=== PATIENT | female | born 1940 | race Caucasian/White ===

== ENCOUNTER 2020-06-22 11:42 | Inpatient (IN) | payer MEDICARE, SELFPAY ==
[2020-06-22] VITALS (7 sets, daily range): BP systolic 123–160; BP diastolic 48–100; PULSE 20–89; RESP 16–83; TEMP 36.7–37; O2SAT 93–98; BMI 26.2
--- NOTE | 2020-06-22 13:27 | XR_ITS ---
EXAMINATION: CHEST, RIGHT HIP AND RIGHT KNEE. CLINICAL INFORMATION: Fall. Pain. COMPARISON: None TECHNIQUE: Chest one view. Right knee 2 views. Right hip 2 views with an AP pelvis view. FINDINGS: Chest: The lungs are well-expanded with prominent bilateral parahilar markings in both lungs. The heart size is normal. No consolidation pleural effusion seen. There is mild deformity left posterior seventh rib question new versus old fracture. Right knee: There is no visible acute fracture, dislocation seen. There is mild reduction in the medial and patellofemoral compartment joint space without joint effusion. There is a small superior anterior patellar enthesophyte. Suspect a small loose body along the medial compartment. Right hip and AP pelvis: AP pelvis: The left hip joint space is normal. There is mild foreshortening of the right hip suggestive subcapital femoral neck fracture. Rest the pelvis is unremarkable. There is sclerotic density right femoral head likely a small to moderate-sized bone island. There is soft tissue calcification along the ischial fossa. No soft tissue swelling or mass seen. SI joints are symmetrical. XR/XR chest 1V IMPRESSION: Subcapital right femoral neck with mild angulation. No dislocation or subluxation. The chest is normal. No acute rib fractures seen No acute fracture or dislocation right knee. There is mild degenerative changes of right knee with a small loose body within the medial compartment. There is minimal suprapatellar joint effusion suspected.
--- NOTE | 2020-06-22 13:28 | ECG_ITS ---
Test Reason : PAIN IN RIGHT SIDE Blood Pressure : / mmHG Vent. Rate : 072 BPM Atrial Rate : 072 BPM P-R Int : 152 ms QRS Dur : 076 ms QT Int : 398 ms P-R-T Axes : 026 002 022 degrees QTc Int : 435 ms Normal sinus rhythm Normal ECG When compared with ECG of 31-JAN-2020 17:53, No significant change was found Referred By: Anderson Jenkins Electronically Signed By:Morris Winkler
--- NOTE | 2020-06-22 13:28 | CT_ITS ---
EXAMINATION: CT HEAD WITHOUT CONTRAST CLINICAL INFORMATION: Fall, headache. On Coumadin COMPARISON: CT brain 02/22/2019 TECHNIQUE: Contiguous axial imaging was performed from the skull base to vertex without intravenous administration of contrast. This CT examination was performed using dose optimization techniques as appropriate, variously including the following: *Automated exposure control *Adjustment of mA and/or kV according to patient size (this includes techniques or standardized protocols for targeted exams where dose is matched to indication/reason for exam; i.e. extremities or head) *Use of iterative reconstruction technique DLP: 912 mGy-cm FINDINGS: There is no evidence of acute intracranial hemorrhage or territorial infarction. No abnormal mass effect or midline shift is seen. Faustin to white matter differentiation is well preserved. No extra-axial fluid collections are identified. The lateral ventricles are significantly enlarged but symmetrical. The third and fourth ventricles are mildly prominent as well. There is mild prominence of cortical sulci. There is extensive periventricular hypodensity in both cerebral hemispheres similar to the previous study from 2019. Bone windows reveal no calvarial abnormality. Bilateral paranasal sinuses and mastoid air cells are well aerated. There is no scalp soft tissue abnormality seen. CT/CT head/brain wo con IMPRESSION: No acute intracranial process seen. Extensive chronic small vessel ischemic changes in both cerebral hemispheres. Significant dilation of lateral ventricles similar to previous study from cerebral volume loss.
--- NOTE | 2020-06-22 13:31 | XR_ITS ---
EXAMINATION: CHEST, RIGHT HIP AND RIGHT KNEE. CLINICAL INFORMATION: Fall. Pain. COMPARISON: None TECHNIQUE: Chest one view. Right knee 2 views. Right hip 2 views with an AP pelvis view. FINDINGS: Chest: The lungs are well-expanded with prominent bilateral parahilar markings in both lungs. The heart size is normal. No consolidation pleural effusion seen. There is mild deformity left posterior seventh rib question new versus old fracture. Right knee: There is no visible acute fracture, dislocation seen. There is mild reduction in the medial and patellofemoral compartment joint space without joint effusion. There is a small superior anterior patellar enthesophyte. Suspect a small loose body along the medial compartment. Right hip and AP pelvis: AP pelvis: The left hip joint space is normal. There is mild foreshortening of the right hip suggestive subcapital femoral neck fracture. Rest the pelvis is unremarkable. There is sclerotic density right femoral head likely a small to moderate-sized bone island. There is soft tissue calcification along the ischial fossa. No soft tissue swelling or mass seen. SI joints are symmetrical. XR/XR knee RT 2V IMPRESSION: Subcapital right femoral neck with mild angulation. No dislocation or subluxation. The chest is normal. No acute rib fractures seen No acute fracture or dislocation right knee. There is mild degenerative changes of right knee with a small loose body within the medial compartment. There is minimal suprapatellar joint effusion suspected.
--- NOTE | 2020-06-22 13:31 | XR_ITS ---
EXAMINATION: CHEST, RIGHT HIP AND RIGHT KNEE. CLINICAL INFORMATION: Fall. Pain. COMPARISON: None TECHNIQUE: Chest one view. Right knee 2 views. Right hip 2 views with an AP pelvis view. FINDINGS: Chest: The lungs are well-expanded with prominent bilateral parahilar markings in both lungs. The heart size is normal. No consolidation pleural effusion seen. There is mild deformity left posterior seventh rib question new versus old fracture. Right knee: There is no visible acute fracture, dislocation seen. There is mild reduction in the medial and patellofemoral compartment joint space without joint effusion. There is a small superior anterior patellar enthesophyte. Suspect a small loose body along the medial compartment. Right hip and AP pelvis: AP pelvis: The left hip joint space is normal. There is mild foreshortening of the right hip suggestive subcapital femoral neck fracture. Rest the pelvis is unremarkable. There is sclerotic density right femoral head likely a small to moderate-sized bone island. There is soft tissue calcification along the ischial fossa. No soft tissue swelling or mass seen. SI joints are symmetrical. XR/XR hip RT w PEL1V IMPRESSION: Subcapital right femoral neck with mild angulation. No dislocation or subluxation. The chest is normal. No acute rib fractures seen No acute fracture or dislocation right knee. There is mild degenerative changes of right knee with a small loose body within the medial compartment. There is minimal suprapatellar joint effusion suspected.
[2020-06-22] MEDS: 0.9 % Sodium Chloride 500 ML IV (13:45)
--- NOTE | 2020-06-22 15:20 | ED.FALL ---
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 She denies any LOC. No chest pain or shortness of breath. She does report she has a slight headache from hitting the head on the ground. No neck pain. Onset (ago): day(s) Related Data Home Medications Medication Instructions Recorded Confirmed acetaminophen 650 mg 650 mg PO Q8H 05/23/20 tablet,extended release albuterol sulfate 90 mcg/actuation 0 mcg INHALATION 05/23/20 aerosol inhaler albuterol sulfate 90 mcg/actuation 2 puff INHALATION QID g 05/23/20 aerosol inhaler fluticasone 500 mcg-salmeterol 50 1 inh INHALATION BID 05/23/20 mcg/dose blistr powdr for inhalation metoprolol tartrate 25 mg tablet 25 mg PO BID 05/23/20 tiotropium bromide 18 mcg capsule 1 cap INHALATION DAILY 05/23/20 with inhalation device tramadol 50 mg tablet 50 mg PO TID PRN 05/23/20 warfarin 5 mg tablet 5 mg PO DAILY 05/23/20 Previous Rx's Medication Instructions Recorded tramadol 50 mg tablet 50 mg PO TID PRN 30 Days #90 tab 05/03/20 meclizine 25 mg tablet 25 mg PO DAILY #30 cap 05/22/20 baclofen 10 mg tablet 10 mg PO BID 15 Days #30 tab 05/23/20 Allergies Allergy/AdvReac Type Severity Reaction Status Date / Time albuterol [Ventolin HFA] Allergy Unknown palpitation Verified 01/07/20 00:00 s No Known Allergies Allergy Unverified 03/02/20 15:39 Review of Systems Review of Systems: Constitutional: No Weight loss, No Fever, No Chills, No Night Sweats, No Fatigue, No Malaise ENT/Mouth: No Hearing loss, No Ear Pain, No Nasal Congestion, No Sinus Pain, No Hoarseness, No sore throat, No Rhinorrhea, No Swallowing Difficulty Eyes: No Eye Pain, No Swelling, No Redness, No Foreign Body, No Discharge, No Vision Changes Cardiovascular: No Chest Pain, No SOB, No Dyspnea on Exertion, No Orthopnea, No Edema, No Palpitations Respiratory: No Cough, No Sputum, No Wheezing, No Smoke Exposure, No Dyspnea Gastrointestinal: No Nausea, No Vomiting, No Diarrhea, No Constipation, No abdominal Pain, No Hematochezia, No Melena Genitourinary: no irregular bleeding, No Dysuria, No Urinary Frequency, No Hematuria, No Urinary Incontinence, No Urgency, No Flank Pain Musculoskeletal: No joint pain, No Myalgias, No Joint Swelling- positive right hip pain Skin: No Skin Lesions, No rash Neuro: No Weakness, No Numbness, No Paresthesias, No Loss of Consciousness, No Dizziness, No Headache Psych: No Social Issues Heme/Lymph: No Bruising, No Bleeding,No Lymphadenopathy Endocrine: No Polyuria, No Polydipsia, No Temperature Intolerance , Yes all other systems are reviewed and are negative [facility] Past Medical History Medical History (Updated 06/22/20 @ 18:17 by Anderson Jenkins NP) Anxiety BPV (benign positional vertigo) Compression fracture of L1 lumbar vertebra COPD (chronic obstructive pulmonary disease) Diverticular disease Eye exam, routine GERD (gastroesophageal reflux disease) History of lung cancer History of pulmonary embolism Hypercholesterolemia Hypertension Knee osteoarthritis Low vitamin D level Ophthalmologic abnormality Surgical History (Updated 05/16/20 @ 20:58 by Rasheed Gilliam MD) History of ankle surgery History of cataract surgery Social History Social History Alcohol intake: never Smoked in Last 30 Days: No Use of substances other than those prescribed or required for medical reasons: No Advance Directives: No Advance Directives Information Provided: Yes Physical Exam Vital Signs: Vital Signs: Last Vital Signs Temp 98.2 F 06/22/20 15:38 Pulse 83 06/22/20 15:38 Resp 18 06/22/20 15:38 BP 141/48 H 06/22/20 15:38 Pulse Ox 96 06/22/20 15:38 Body Mass Index 26.2 Reviewed Const: General: cooperative and healthy appearing; No acute distress or intoxicated appearing Nutritional Appearance: average body habitus Orientation/consciousness: patient oriented x3 HENMT: Head: Yes normal to inspection Ears: hearing grossly normal bilaterally Eyes: General: appearance normal, both eyes and all related structures Visual Segura: normal visual segura by confrontation Neck: Neck: Yes normal visual inspection, No positive Brudzinski's sign, No positive Kernig's sign and No tender Thyroid: Thyroid normal Chest: Chest palpation & inspection: normal inspection of the chest Resp: Effort & Inspection: normal respiratory effort Auscultation: clear to auscultation bilaterally Cardio: Jugular venous distension: no JVD Rhythm: regular rhythm Heart sounds: S1 normal heart sound present and S2 normal heart sound present GI: Inspection: Yes normal to inspection Percussion: Yes normal to percussion Auscultation: normal bowel sounds : General: Yes no CVA tenderness Back/Spine/Pelvis: Back: no CVA tenderness Skin: General skin exam: no rashes or lesions noted Neuro: General: patient oriented x3 Extrem: Other: Laying supine with knees flexed at the knee joint. Able to extend but has significant pain in the right hip. Neurovascularly intact. Right lower extremity not rotated but is very slightly shortened compared to the left. General: Yes normal to inspection Course Course Course Narrative: In review 80-year-old female with significant history as noted above presenting with fall yesterday on Coumadin did hit her head there was no LOC. Denies any prodromal symptoms to me. Labs show subtherapeutic INR otherwise stable. Pain well managed with 1 dose of morphine. Case discussed with orthopedics as well as hospitalist team for further management. Daughter Margaret Brice [phone]- spoke to her she has a healthcare proxy would like to be contacted with any questions. Consultations Consultation #1: Discussed with radiology Dr. Harvey ; regarding the read on the hip x-ray in the body of the report it does say right femoral neck fracture in the impression this is not specified. Consultation #2: Orthopedic Dr. Rivers; will consult question jing arthroplasty tomorrow a.m.. Consultation #3: Case discussed with hospitalist for admission. MDM - Fall Differential Diagnosis Differential diagnosis: Likely syncope, fracture and concussion without loss of consciousness Medical Records Attestation: I reviewed the patient's medical records. Lab Data Attestation: I reviewed the patient's lab results. Result diagrams: 06/22/20 15:14 06/22/20 15:14 Labs: Lab Results 06/22/20 06/22/20 06/22/20 Range/Units 15:14 15:14 15:14 WBC 12.2 H (4.8-10.8) X10*3/uL RBC 4.00 L (4.20-5.50) X10*6/uL Hgb 11.9 L (12.0-16.0) g/dl Hct 36.7 L (37-47) % MCV 91.8 (80-98) fL MCH 29.8 (27.0-33.0) pg MCHC 32.4 (31.0-35.0) g/dl RDW 12.9 (11.0-16.0) % Plt Count 221 (160-400) X10*3/uL MPV 10.2 (9.4-12.3) fL Immature Gran % (Auto) 0.3 (0.0-0.4) % Neut % (Auto) 68.6 (45-73) % Lymph % (Auto) 22.2 (20-40) % Osborne % (Auto) 7.9 (2-11) % Eos % (Auto) 0.7 (0-4) % Baso % (Auto) 0.3 (0-2) % Lymph # (Auto) 2.7 (1.2-4.9) X10*3/uL Osborne # (Auto) 1.0 (0.1-1.2) X10*3/uL Eos # (Auto) 0.1 (0.0-0.4) X10*3/uL Baso # (Auto) 0.0 (0.0-0.2) X10*3/uL Abs Immat Gran (auto) 0.04 H (0.00-0.03) X10*3/uL Absolute Neuts (auto) 8.4 H (2.0-8.3) X10*3/uL Absolute Nucleated RBC 0.000 (0.0-0.012) X10*3/uL Nucleated RBC % (auto) 0.0 (0.0-0.2) /100WBC PT (10.8-13.0) SEC INR (0.9-1.1) APTT (24.1-38.0) SEC Sodium 137 (135-145) mmol/L Potassium 4.0 (3.3-5.1) mmol/l Chloride 107 (96-108) mmol/L Carbon Dioxide 23 (22-29) mmol/L Anion Gap 11 L (12-20) BUN 8 L (9-16) mg/dL Creatinine 0.75 (0.5-1.4) mg/dL Estim Creat Clear Calc 48.7 Estimated GFR > 60 Random Glucose 94 (60-115) mg/dL Calcium 8.2 L (8.4-10.2) mg/dL Total Bilirubin 0.6 (0.0-1.0) mg/dL AST 15 (5-31) U/L ALT 9 (0-31) U/L Alkaline Phosphatase 71 (39-117) U/L Troponin I High Sens < 3.5 (<3.5-17.0) ng/L Total Protein 7.3 (6.5-8.0) g/dL Albumin 3.9 (3.5-5.0) g/dL Urine Color Urine Appearance Urine pH (5.0-8.0) Ur Specific [place] (1.005-1.025) Urine Protein (NEG-TRACE) MG/DL Urine Glucose (UA) (NEG) MG/DL Urine Ketones (NEG) MG/DL Urine Blood (NEG) Urine Nitrite (NEG) Ur Leukocyte Esterase (NEG) Urine RBC (0) /HPF Urine WBC (0-4) /HPF Ur Squamous Epith Cells /LPF Ur Renal Epithelial Cell /LPF Urine Bacteria /LPF 06/22/20 06/22/20 Range/Units 15:14 15:36 WBC (4.8-10.8) X10*3/uL RBC (4.20-5.50) X10*6/uL Hgb (12.0-16.0) g/dl Hct (37-47) % MCV (80-98) fL MCH (27.0-33.0) pg MCHC (31.0-35.0) g/dl RDW (11.0-16.0) % Plt Count (160-400) X10*3/uL MPV (9.4-12.3) fL Immature Gran % (Auto) (0.0-0.4) % Neut % (Auto) (45-73) % Lymph % (Auto) (20-40) % Osborne % (Auto) (2-11) % Eos % (Auto) (0-4) % Baso % (Auto) (0-2) % Lymph # (Auto) (1.2-4.9) X10*3/uL Osborne # (Auto) (0.1-1.2) X10*3/uL Eos # (Auto) (0.0-0.4) X10*3/uL Baso # (Auto) (0.0-0.2) X10*3/uL Abs Immat Gran (auto) (0.00-0.03) X10*3/uL Absolute Neuts (auto) (2.0-8.3) X10*3/uL Absolute Nucleated RBC (0.0-0.012) X10*3/uL Nucleated RBC % (auto) (0.0-0.2) /100WBC PT 16.4 H (10.8-13.0) SEC INR 1.4 H (0.9-1.1) APTT 35.6 (24.1-38.0) SEC Sodium (135-145) mmol/L Potassium (3.3-5.1) mmol/l Chloride (96-108) mmol/L Carbon Dioxide (22-29) mmol/L Anion Gap (12-20) BUN (9-16) mg/dL Creatinine (0.5-1.4) mg/dL Estim Creat Clear Calc Estimated GFR Random Glucose (60-115) mg/dL Calcium (8.4-10.2) mg/dL Total Bilirubin (0.0-1.0) mg/dL AST (5-31) U/L ALT (0-31) U/L Alkaline Phosphatase (39-117) U/L Troponin I High Sens (<3.5-17.0) ng/L Total Protein (6.5-8.0) g/dL Albumin (3.5-5.0) g/dL Urine Color YELLOW Urine Appearance CLEAR Urine pH 7.5 (5.0-8.0) Ur Specific [place] 1.010 (1.005-1.025) Urine Protein NEG (NEG-TRACE) MG/DL Urine Glucose (UA) NEG (NEG) MG/DL Urine Ketones NEG (NEG) MG/DL Urine Blood 1+ H (NEG) Urine Nitrite NEG (NEG) Ur Leukocyte Esterase NEG (NEG) Urine RBC 1-4 (0) /HPF Urine WBC 1-4 (0-4) /HPF Ur Squamous Epith Cells NONE /LPF Ur Renal Epithelial Cell 1+ /LPF Urine Bacteria NONE /LPF Imaging Data CT scan - head: Radiologist's impression: [address] [address] [address] Scan Report Signed Patient: Marino Phillips#: [id number] : 1940cct:[id number] Age/Sex: 80 / FADM Date: 06/22/20 Loc: HO.ED Attending Dr: Ordering Physician: Anderson Jenkins NP Date of Service: 06/22/20 Procedure(s): CT head/brain wo con Accession Number(s): [id number] cc: Anderson Jenkins NP~ EXAMINATION: CT HEAD WITHOUT CONTRAST CLINICAL INFORMATION: Fall, headache. On Coumadin COMPARISON: CT brain 02/22/2019 TECHNIQUE: Contiguous axial imaging was performed from the skull base to vertex without intravenous administration of contrast. This CT examination was performed using dose optimization techniques as appropriate, variously including the following: *Automated exposure control *Adjustment of mA and/or kV according to patient size (this includes techniques or standardized protocols for targeted exams where dose is matched to indication/reason for exam; i.e. extremities or head) *Use of iterative reconstruction technique DLP: 912 mGy-cm FINDINGS: There is no evidence of acute intracranial hemorrhage or territorial infarction. No abnormal mass effect or midline shift is seen. Faustin to white matter differentiation is well preserved. No extra-axial fluid collections are identified. The lateral ventricles are significantly enlarged but symmetrical. The third and fourth ventricles are mildly prominent as well. There is mild prominence of cortical sulci. There is extensive periventricular hypodensity in both cerebral hemispheres similar to the previous study from 2019. Bone windows reveal no calvarial abnormality. Bilateral paranasal sinuses and mastoid air cells are well aerated. There is no scalp soft tissue abnormality seen. CT/CT head/brain wo con IMPRESSION: No acute intracranial process seen. Extensive chronic small vessel ischemic changes in both cerebral hemispheres. Significant dilation of lateral ventricles similar to previous study from cerebral volume loss. Dictated By:MINH HARVEY MD Signed By:<Electronically signed by MINH HARVEY MD in OV>06/22/20 1459 DD/ 1328 TD/TT: Neon Tube Bender: MOMO Chest x-ray, right hip with pelvis, right knee: Radiologist's impression: [address] [address] XRay Report Signed Patient: Marino Phillips#: [id number] : 1940cct:[id number] Age/Sex: 80 / FADM Date: 06/22/20 Loc: HO.ED Attending Dr: Ordering Physician: Anderson Jenkins NP Date of Service: 06/22/20 Procedure(s): XR chest 1V Accession Number(s): [id number] cc: Anderson Jenkins [employer]~ EXAMINATION: CHEST, RIGHT HIP AND RIGHT KNEE. CLINICAL INFORMATION: Fall. Pain. COMPARISON: None TECHNIQUE: Chest one view. Right knee 2 views. Right hip 2 views with an AP pelvis view. FINDINGS: Chest: The lungs are well-expanded with prominent bilateral parahilar markings in both lungs. The heart size is normal. No consolidation pleural effusion seen. There is mild deformity left posterior seventh rib question new versus old fracture. Right knee: There is no visible acute fracture, dislocation seen. There is mild reduction in the medial and patellofemoral compartment joint space without joint effusion. There is a small superior anterior patellar enthesophyte. Suspect a small loose body along the medial compartment. Right hip and AP pelvis: AP pelvis: The left hip joint space is normal. There is mild foreshortening of the right hip suggestive subcapital femoral neck fracture. Rest the pelvis is unremarkable. There is sclerotic density right femoral head likely a small to moderate-sized bone island. There is soft tissue calcification along the ischial fossa. No soft tissue swelling or mass seen. SI joints are symmetrical. XR/XR chest 1V IMPRESSION: Subcapital right femoral neck with mild angulation. No dislocation or subluxation. The chest is normal. No acute rib fractures seen No acute fracture or dislocation right knee. There is mild degenerative changes of right knee with a small loose body within the medial compartment. There is minimal suprapatellar joint effusion suspected. Dictated By:MINH HARVEY MD Signed By:<Electronically signed by MINH HARVEY MD in OV>06/22/20 1440 DD/ 1327 TD/TT: Neon Tube Bender: MOMO Discharge Plan Discharge Clinical Impression: Fall, Closed fracture of right hip Patient Disposition: Admitted As Inpatient Prescriptions: No Action tramadol 50 mg tablet 50 mg PO TID PRN (Reason: pain) 30 Days Qty: 90 RF: 1 meclizine 25 mg tablet 25 mg PO DAILY Qty: 30 RF: 2 baclofen 10 mg tablet 10 mg PO BID 15 Days Qty: 30 RF: 0
[2020-06-22 15:23] LABS: MANUAL DIFF FLAG NO
[2020-06-22 15:24] LABS: Basophils Percent Auto 0.3 % (0-2); Eosinophils Absolute Auto 0.1 X10*3/uL (0.0-0.4); Eosinophils Percent Auto 0.7 % (0-4); Hematocrit 36.7 % (37-47); Hemoglobin 11.9 g/dl (12.0-16.0); Imm Gran Abs Auto 0.04 X10*3/uL (0.00-0.03); Imm Gran Pct Auto 0.3 % (0.0-0.4); Lymphocytes Absolute Auto 2.7 X10*3/uL (1.2-4.9); Lymphocytes Percent Auto 22.2 % (20-40); Mean Corpuscular HGB Conc 32.4 g/dl (31.0-35.0); Mean Corpuscular Hemoglobin 29.8 pg (27.0-33.0); Mean Corpuscular Volume 91.8 fL (80-98); Mean Platelet Volume 10.2 fL (9.4-12.3); Monocytes Percent Auto 7.9 % (2-11); Neutrophils Absolute Auto 8.4 X10*3/uL (2.0-8.3); Neutrophils Percent Auto 68.6 % (45-73); Platelet Count 221 X10*3/uL (160-400); Red Cell Distribution Width 12.9 % (11.0-16.0); White Blood Count 12.2 X10*3/uL (4.8-10.8)
[2020-06-22 15:28] LABS: INTERNATIONAL NORM RATIO 1.4 (0.9-1.1); Prothrombin Time 16.4 SEC (10.8-13.0)
[2020-06-22 15:30] LABS: Partial Thromboplastin Time 35.6 SEC (24.1-38.0)
[2020-06-22] MEDS: Morphine Sulfate 4 MG/ML CARTRIDGE 2 MG IVPUSH (15:31)
[2020-06-22] MEDS: ondansetron HCL 4 MG/2 ML VIAL IVPUSH (15:31)
--- NOTE | 2020-06-22 15:34 | PC.NURSE ---
patient medicated per order
[2020-06-22 15:55] LABS: Alanine Aminotransferase 9 U/L (0-31); Albumin Level 3.9 g/dL (3.5-5.0); Alkaline Phosphatase 71 U/L (39-117); Anion Gap 11 (12-20); Aspartate Amino Transferase 15 U/L (5-31); Bilirubin Total 0.6 mg/dL (0.0-1.0); Blood Urea Nitrogen 8 mg/dL (9-16); Calcium 8.2 mg/dL (8.4-10.2); Carbon Dioxide 23 mmol/L (22-29); Chloride 107 mmol/L (96-108); Creatinine Clr Calc Pharmacy 48.7; Estimated Glomerular Filt Rate > 60; Glucose Random 94 mg/dL (60-115); Sodium 137 mmol/L (135-145); Total Protein 7.3 g/dL (6.5-8.0)
[2020-06-22 15:57] LABS: Troponin-I High Sensitivity < 3.5 ng/L (<3.5-17.0)
--- NOTE | 2020-06-22 16:00 | PC.NURSE ---
cath has been inserted per order
--- NOTE | 2020-06-22 16:08 | PC.NURSE ---
patient a&ox3, vss, pts had me speak with son on her cell phone, pt aware she has a broken rt hip as well as that she will be spending the night
[2020-06-22 16:16] LABS: Glucose Urine UA NEG (NEG); Leukocyte Esterase Urine NEG (NEG); Nitrite Urine NEG (NEG); PH 7.5 (5.0-8.0); Urine Blood 1+ (NEG); Urine Ketones NEG (NEG); Urine Protein NEG (NEG-TRACE)
[2020-06-22 16:39] LABS: Appearance Urine CLEAR; Color Urine YELLOW
[2020-06-22 17:02] LABS: Renal Epithelial Cells Urine 1+ /LPF
--- NOTE | 2020-06-22 18:09 | PC.NURSE ---
patient alert to baseline, vss, pt talking on phone with daughter as well as watching tv, covid swab performed, will continue to monitor.
[2020-06-22 18:29] LABS: COVID-19 Test Negative (Negative)
--- NOTE | 2020-06-22 18:48 | P.HPHOSP_ITS ---
History of Present Illness Date of Service: 06/22/20 <LUCY Apodaca - Last Filed: 06/22/20 19:02> Chief Complaint: Hip pain <LUCY Apodaca - Last Filed: 06/22/20 19:02> This is an 80-year-old female who was brought to the emergency department after a full with complaints of hip pain. Patient reports she was using her walker to ambulate down the hallway but her small dog got tangled up in her feet causing her to fall. She denied any dizziness chest pain or shortness of breath prior to her fall. She had sudden onset of right hip pain and was unable to get up. In the emergency department imaging revealed a right subcapital femoral neck fracture. Lab work revealed leukocytosis of 12.2 1.4. The remainder of her lab work was unremarkable. The remainder of her imaging was also unremarkable. The orthopedic surgeon recommended admission to medical service. <LUYC Apodaca - Last Filed: 06/22/20 19:02> Review of Systems Review of Systems: Yes all other systems are reviewed and are negative <LUCY Apodaca - Last Filed: 06/22/20 19:02> Constitutional: Constitutional: Denies chills and Denies fever(s) <LUCY Apodaca - Last Filed: 06/22/20 19:02> Cardiovascular: Cardiovascular: Denies chest pain <LUCY Apodaca - Last Filed: 06/22/20 19:02> Respiratory: Respiratory: Denies cough <LUCY Apodaca Last Filed: 06/22/20 19:02> Gastrointestinal: Gastrointestinal: Denies abdominal pain <LUCY Apodaca - Last Filed: 06/22/20 19:02> [facility] Medical History: Medical History (Updated 06/22/20 @ 18:53 by LUCY Apodaca) Anxiety BPV (benign positional vertigo) Compression fracture of L1 lumbar vertebra COPD (chronic obstructive pulmonary disease) Diverticular disease Eye exam, routine GERD (gastroesophageal reflux disease) History of lung cancer History of pulmonary embolism Hypercholesterolemia Hypertension Knee osteoarthritis Low vitamin D level Ophthalmologic abnormality <LUCY Apodaca Last Filed: 06/22/20 19:02> Functional capacity: uses cane/walker <LUCY Apodaca - Last Filed: 06/22/20 19:02> Family history: reviewed and not pertinent <LUCY Apodaca - Last Filed: 06/22/20 19:02> Surgical History: Surgical History History of ankle surgery History of cataract surgery <LUCY Apodaca - Last Filed: 06/22/20 19:02> Social History: Social History (Updated 06/22/20 @ 18:52 by LUCY Apodaca) Household Members: None Alcohol intake: never Smoking Status: Former smoker Smoked in Last 30 Days: No Use of substances other than those prescribed or required for medical reasons: No Advance Directives: No Advance Directives Information Provided: Yes <LUCY Apodaca - Last Filed: 06/22/20 19:02> Meds Allergies/Adverse reactions: Allergies Allergy/AdvReac Type Severity Reaction Status Date / Time albuterol [Ventolin HFA] Allergy Unknown palpitation Verified 01/07/20 00:00 s No Known Allergies Allergy Unverified 03/02/20 15:39 <LUCY Apodaca - Last Filed: 06/22/20 19:02> Home medications: Home Medications Medication Instructions Recorded Confirmed Type acetaminophen 650 mg 650 mg PO Q8H PRN 05/23/20 06/22/20 History tablet,extended release fluticasone 500 mcg-salmeterol 50 1 inh INHALATION BID 05/23/20 History mcg/dose blistr powdr for inhalation albuterol sulfate 2 puff INHALATION Q4H PRN 06/22/20 06/22/20 History meclizine 25 mg PO DAILY 06/22/20 06/22/20 History metoprolol tartrate 1 tab PO BID 06/22/20 06/22/20 History warfarin [Jantoven] 5 mg PO DAILY 06/22/20 06/22/20 History <LUCY Apodaca - Last Filed: 06/22/20 19:02> Physical Exam Vital Signs and Narrative: Vital Signs: Last Vital Signs Temp 98.4 F 06/22/20 18:09 Pulse 81 06/22/20 18:09 Resp 18 06/22/20 18:09 BP 123/60 06/22/20 18:09 Pulse Ox 93 06/22/20 18:09 Body Mass Index 26.2 <LUCY Apodaca - Last Filed: 06/22/20 19:02> Const: General: alert and awake <LUCY Apodaca - Last Filed: 06/22/20 19:02> Nutritional Appearance: well nourished <LUCY Apodaca - Last Filed: 06/22/20 19:02> HENMT: Head: Yes normocephalic and Yes atraumatic <LUCY Apodaca - Last Filed: 06/22/20 19:02> Eyes: Sclerae: sclerae normal <LUCY Apodaca - Last Filed: 06/22/20 19:02> Chest: Chest palpation & inspection: normal inspection of the chest <LUCY Apodaca - Last Filed: 06/22/20 19:02> Resp: Effort & Inspection: normal respiratory effort and no respiratory distress <LUCY Apodaca - Last Filed: 06/22/20 19:02> Auscultation: clear to auscultation bilaterally <LUCY Apodaca - Last Filed: 06/22/20 19:02> Cardio: Rate: regular rate <LUCY Apodaca - Last Filed: 06/22/20 19:02> Rhythm: regular rhythm <LUCY Apodaca - Last Filed: 06/22/20 19:02> GI: Palpation (GI): Soft to palpation and nontender <LUCY Apodaca - Last Filed: 06/22/20 19:02> Skin: General skin exam: no rashes or lesions noted <LUCY Apodaca - Last Filed: 06/22/20 19:02> Neuro: Cranial nerves: Yes CN's II-XII intact bilaterally and Yes Bilaterally intact EOM present <LUCY Apodaca - Last Filed: 06/22/20 19:02> Extrem: General: Yes normal to inspection <LUCY Apodaca - Last Filed: 06/22/20 19:02> Results Labs CBC and Chem 7: : 06/22/20 15:14 06/22/20 15:14 <LUCY Apodaca - Last Filed: 06/22/20 19:02> Labs: Laboratory Results - last 24 hr 06/22/20 06/22/20 06/22/20 15:14 15:14 15:14 MCV 91.8 MCH 29.8 MCHC 32.4 RDW 12.9 Plt Count 221 MPV 10.2 Immature Gran % (Auto) 0.3 Neut % (Auto) 68.6 Lymph % (Auto) 22.2 [place] % (Auto) 7.9 Eos % (Auto) 0.7 Baso % (Auto) 0.3 Lymph # (Auto) 2.7 [place] # (Auto) 1.0 Eos # (Auto) 0.1 Baso # (Auto) 0.0 Abs Immat Gran (auto) 0.04 H Absolute Neuts (auto) 8.4 H Absolute Nucleated RBC 0.000 Nucleated RBC % (auto) 0.0 PT INR APTT Anion Gap 11 L Estim Creat Clear Calc 48.7 Estimated GFR > 60 Random Glucose 94 Calcium 8.2 L Total Bilirubin 0.6 AST 15 ALT 9 Alkaline Phosphatase 71 Troponin I High Sens < 3.5 Total Protein 7.3 Albumin 3.9 Urine Color Urine Appearance Urine pH Ur Specific [place] Urine Protein Urine Glucose (UA) Urine Ketones Urine Blood Urine Nitrite Ur Leukocyte Esterase Urine RBC Urine WBC Ur Squamous Epith Cells Ur Renal Epithelial Cell Urine Bacteria COVID-19 (JAMES) COVID-19 Clin Com 06/22/20 06/22/20 06/22/20 15:14 15:36 18:07 MCV MCH MCHC RDW Plt Count MPV Immature Gran % (Auto) Neut % (Auto) Lymph % (Auto) [place] % (Auto) Eos % (Auto) Baso % (Auto) Lymph # (Auto) [place] # (Auto) Eos # (Auto) Baso # (Auto) Abs Immat Gran (auto) Absolute Neuts (auto) Absolute Nucleated RBC Nucleated RBC % (auto) PT 16.4 H INR 1.4 H APTT 35.6 Anion Gap Estim Creat Clear Calc Estimated GFR Random Glucose Calcium Total Bilirubin AST ALT Alkaline Phosphatase Troponin I High Sens Total Protein Albumin Urine Color YELLOW Urine Appearance CLEAR Urine pH 7.5 Ur Specific [place] 1.010 Urine Protein NEG Urine Glucose (UA) NEG Urine Ketones NEG Urine Blood 1+ H Urine Nitrite NEG Ur Leukocyte Esterase NEG Urine RBC 1-4 Urine WBC 1-4 Ur Squamous Epith Cells NONE Ur Renal Epithelial Cell 1+ Urine Bacteria NONE COVID-19 (JAMES) Negative COVID-19 Clin Com See Note <LUCY Apodaca - Last Filed: 06/22/20 19:02> Imaging Radiologist's Impressions: Impressions Chest X-Ray 06/22/20 13:27 IMPRESSION: Subcapital right femoral neck with mild angulation. No dislocation or subluxation. The chest is normal. No acute rib fractures seen No acute fracture or dislocation right knee. There is mild degenerative changes of right knee with a small loose body within the medial compartment. There is minimal suprapatellar joint effusion suspected. Head CT 06/22/20 13:28 IMPRESSION: No acute intracranial process seen. Extensive chronic small vessel ischemic changes in both cerebral hemispheres. Significant dilation of lateral ventricles similar to previous study from cerebral volume loss. Hip/Pelvis X-Ray 06/22/20 13:31 IMPRESSION: Subcapital right femoral neck with mild angulation. No dislocation or subluxation. The chest is normal. No acute rib fractures seen No acute fracture or dislocation right knee. There is mild degenerative changes of right knee with a small loose body within the medial compartment. There is minimal suprapatellar joint effusion suspected. Knee X-Ray 06/22/20 13:31 IMPRESSION: Subcapital right femoral neck with mild angulation. No dislocation or subluxation. The chest is normal. No acute rib fractures seen No acute fracture or dislocation right knee. There is mild degenerative changes of right knee with a small loose body within the medial compartment. There is minimal suprapatellar joint effusion suspected. <LUCY Apodaca - Last Filed: 06/22/20 19:02> Assessment and Plan (1) Closed fracture of right hip: Status: Acute <LUCY Apodaca - Last Filed: 06/22/20 19:02> (2) History of pulmonary embolism: Status: Inactive <LUCY Apodaca - Last Filed: 06/22/20 19:02> This is an 80-year-old with history osteoarthritis, PE Coumadin, hypertension, COPD presents after mechanical fall found to have a right subcapital femoral neck fracture Right subcapital femoral neck fracture Consult ortho No additional workup prior to planned procedure Hold Coumadin pain control - has requested to avoid morphine if possible. IV Tylenol, p.r.n. oxycodone h/o PE INR sub therapeutic Hold Coumadin for surgery COPD Lungs clear Continue p.r.n. inhalers Hypertension Continue metoprolol DVT prophylaxis-mechanical devices Code status-full code This case was discussed with Dr. Gilliland <LUCY Apodaca - Last Filed: 06/22/20 19:02>
[2020-06-22] MEDS: oxyCODONE HCl Immed Release 5 MG TABLET PO (22:31)
[2020-06-23] VITALS (9 sets, daily range): BP systolic 103–150; BP diastolic 61–76; PULSE 75–97; RESP 16–18; TEMP 36.6–37.1; O2SAT 2–98
[2020-06-23] MEDS: Albuterol Sulfate 90 MCG 8 GM INHALER 2 PUFF INHALE ×2 (00:15→15:58)
[2020-06-23] MEDS: Metoprolol Tartrate 25 MG TABLET PO ×3 (00:16→20:52)
--- NOTE | 2020-06-23 00:17 | PC.NURSE ---
pt's spo2 falls to mid 80's while sleeping. pt wakes easily and spo2 improved to 94%. pt placed on 2 lpm o2 while she is boarding in ER. pt also reports that she normally uses an mdi at home. mdi removed from [facility] for pt use.
--- NOTE | 2020-06-23 07:16 | PC.NURSE ---
pt report given to RN on floor, pt ready for transport.
[2020-06-23] MEDS: 0.9 % Sodium Chloride Flush 3 ML SYRINGE IVFLUSH ×2 (08:24→15:06)
[2020-06-23] MEDS: Meclizine HCl 25 MG TABLET PO (08:24)
[2020-06-23] MEDS: oxyCODONE HCl Immed Release 5 MG TABLET PO ×2 (08:24→15:01)
--- NOTE | 2020-06-23 09:23 | P.PNIM_ITS ---
Subjective Subjective Date of Service: 06/23/20 Interval History: Seen in f/u for hip fracture. Has pain in the hip doesn't want morphine Review of Systems no fever pain in the hip Physical Exam Vital Signs: Vital Signs: Last Vital Signs Temp 97.9 F 06/23/20 07:54 Pulse 82 06/23/20 08:25 Resp 18 06/23/20 07:54 BP 150/76 H 06/23/20 08:25 Pulse Ox 98 06/23/20 07:54 Body Mass Index 26.2 General: AO X 3, no acute distress Resp: CTA bilateral CVS: S1,S2,RRR GI: +BS, NT, no distention Skin: No rash Muscul Neuro: motor grossly intact Psych: appropriate affect Objective Data Current Medications Generic Name Dose Route Start Last Admin Trade Name Freq PRN Reason Stop Dose Admin Albuterol Sulfate 2 puff 06/22/20 19:09 06/23/20 00:15 Albuterol Sulfate 90 Mcg 8 Gm Inhaler INHALE 2 puff Q4H PRN Administration Shortness Of Breath Docusate Sodium 100 mg 06/22/20 18:46 Docusate Sodium 100 Mg Capsule PO DAILY PRN Constipation Meclizine HCl 25 mg 06/23/20 09:00 06/23/20 08:24 Meclizine Hcl 25 Mg Tablet PO 25 mg DAILY [place] Administration Metoprolol Tartrate 25 mg 06/22/20 21:00 06/23/20 08:25 Metoprolol Tartrate 25 Mg Tablet PO 25 mg BID [place] Administration Protocol Ondansetron HCl 4 mg 06/22/20 18:46 Ondansetron Hcl 4 Mg/2 Ml Vial IVPUSH Q8H PRN Nausea and Vomiting Oxycodone HCl 5 mg 06/22/20 18:46 06/23/20 08:24 Oxycodone Hcl Immed Release 5 Mg Tablet PO 5 mg Q4H PRN Administration Pain, Severe (Pain Scale 7-10) Pharmacy Consult 1 each 06/22/20 17:54 Consult Rx Perform Med Rec MISCELLANE ONCE PRN Consult order Sodium Chloride 3 ml 06/23/20 00:00 06/23/20 08:24 0.9 % Sodium Chloride Flush 3 Ml Syringe IVFLUSH 3 ml QSHIFT [facility] Administration Labs CBC & Chem 7: 06/26/20 06:03 06/26/20 06:03 Assessment and Plan (1) Closed fracture of right hip: Problem details: June 2020 Status: Acute (2) History of pulmonary embolism: Status: Acute Assessment and Plan - Rober Gilliland MD: 80-year-old with history osteoarthritis, PE Coumadin, hypertension, COPD presents after mechanical fall found to have a right subcapital femoral neck fracture Right subcapital femoral neck fracture For operative repair tomorrow 06/24 No additional workup prior to planned procedure Hold Coumadin pain control - wish not to hav morphine if possible. IV Tylenol, p.r.n. oxycodone h/o PE INR sub therapeutic Hold Coumadin for surgery COPD Lungs clear Continue p.r.n. inhalers Hypertension Continue metoprolol DVT prophylaxis-mechanical devices Code status-full code
[2020-06-23 12:31] LABS: MANUAL DIFF FLAG NO
[2020-06-23 12:34] LABS: Basophils Absolute Auto 0.1 X10*3/uL (0.0-0.2); Basophils Percent Auto 0.4 % (0-2); Eosinophils Absolute Auto 0.4 X10*3/uL (0.0-0.4); Eosinophils Percent Auto 2.9 % (0-4); Hemoglobin 12.1 g/dl (12.0-16.0); Imm Gran Abs Auto 0.04 X10*3/uL (0.00-0.03); Imm Gran Pct Auto 0.3 % (0.0-0.4); Lymphocytes Absolute Auto 2.3 X10*3/uL (1.2-4.9); Lymphocytes Percent Auto 19.1 % (20-40); Mean Corpuscular HGB Conc 31.8 g/dl (31.0-35.0); Mean Corpuscular Hemoglobin 29.8 pg (27.0-33.0); Mean Corpuscular Volume 93.6 fL (80-98); Mean Platelet Volume 10.2 fL (9.4-12.3); Monocytes Percent Auto 8.7 % (2-11); Neutrophils Absolute Auto 8.2 X10*3/uL (2.0-8.3); Neutrophils Percent Auto 68.6 % (45-73); Platelet Count 212 X10*3/uL (160-400); Red Blood Count 4.06 X10*6/uL (4.20-5.50); Red Cell Distribution Width 13.3 % (11.0-16.0); White Blood Count 11.9 X10*3/uL (4.8-10.8)
[2020-06-23 12:39] LABS: INTERNATIONAL NORM RATIO 1.3 (0.9-1.1)
--- NOTE | 2020-06-23 13:10 | PM.HPOR ---
History of Present Illness History of Present Illness Date of Service: 06/23/20 Chief complaint: Right hip fracture Narrative: Toshia Phillips is a 80 year old female who presented to the ED after sustaining a fall and experienced rt hip pain. She states that she was ambulating with a walker and her small dog got under her feet and she tripped and fell. She has a PMH significant for lung cancer, PE, and taking Coumadin. In the ED x-rays were taken and she was found to have a right femoral neck fracture. Patient was admitted to the hospital service and orthopedics was consulted. Review of Systems Review of Systems: Yes all other systems are reviewed and are negative PMFSH Past Medical History Medical History Anxiety BPV (benign positional vertigo) Compression fracture of L1 lumbar vertebra COPD (chronic obstructive pulmonary disease) Diverticular disease Eye exam, routine GERD (gastroesophageal reflux disease) History of lung cancer History of pulmonary embolism Hypercholesterolemia Hypertension Knee osteoarthritis Low vitamin D level Ophthalmologic abnormality Functional capacity: uses cane/walker Family History Family history: reviewed and not pertinent Surgical History Surgical History History of ankle surgery History of cataract surgery Social History Social History Household Members: Family Housing: Unknown / Unable to assess Alcohol intake: never Smoking Status: Former smoker Smoked in Last 30 Days: No Use of substances other than those prescribed or required for medical reasons: No Currently Displaying Signs/Symptoms of Drug Intoxication Withdrawal: No Have you been hit, kicked, punched, or otherwise hurt by someone within the past year? If so, by whom?: No Do you feel safe in your current relationship?: No Current Relationship Is there a partner from a previous relationship who is making you feel unsafe now?: No Are you made to feel afraid or neglected: No Advance Directives: No Advance Directives Information Provided: Yes Do you have thoughts of harming others: None Do you have a plan to hurt others: No Plan Recently lost weight without trying: No Meds Allergies Allergy/AdvReac Type Severity Reaction Status Date / Time albuterol [Ventolin HFA] Allergy Unknown palpitation Verified 01/07/20 00:00 s No Known Allergies Allergy Unverified 03/02/20 15:39 Home Medications Medication Instructions Recorded Confirmed Type acetaminophen 650 mg 650 mg PO Q8H PRN 05/23/20 06/22/20 History tablet,extended release fluticasone 500 mcg-salmeterol 50 1 inh INHALATION BID 05/23/20 History mcg/dose blistr powdr for inhalation albuterol sulfate 2 puff INHALATION Q4H PRN 06/22/20 06/22/20 History meclizine 25 mg PO DAILY 06/22/20 06/22/20 History metoprolol tartrate 1 tab PO BID 06/22/20 06/22/20 History warfarin [Jantoven] 5 mg PO DAILY 06/22/20 06/22/20 History Physical Exam Vital Signs: Vital Signs: Last Vital Signs Temp 97.9 F 06/23/20 07:54 Pulse 82 06/23/20 08:25 Resp 18 06/23/20 07:54 BP 150/76 H 06/23/20 08:25 Pulse Ox 98 06/23/20 07:54 Body Mass Index 26.2 Const: General: cooperative, healthy appearing and no acute distress Resp: Effort & Inspection: normal respiratory effort and able to speak in complete sentences Cardio: Rate: regular rate Peripheral pulses: Peripheral pulses 2+ throughout GI: Inspection: Yes normal to inspection Palpation (GI): Soft to palpation Skin: General skin exam: no rashes or lesions noted Results Labs Result Diagrams: 06/23/20 12:22 06/22/20 15:14 Labs: Abnormal lab results 06/22/20 06/22/20 06/22/20 Range/Units 15:14 15:14 15:14 WBC 12.2 H (4.8-10.8) X10*3/uL RBC 4.00 L (4.20-5.50) X10*6/uL Hgb 11.9 L (12.0-16.0) g/dl Hct 36.7 L (37-47) % Lymph % (Auto) (20-40) % Abs Immat Gran (auto) 0.04 H (0.00-0.03) X10*3/uL Absolute Neuts (auto) 8.4 H (2.0-8.3) X10*3/uL PT 16.4 H (10.8-13.0) SEC INR 1.4 H (0.9-1.1) Anion Gap 11 L (12-20) BUN 8 L (9-16) mg/dL Calcium 8.2 L (8.4-10.2) mg/dL Urine Blood (NEG) 06/22/20 06/23/20 06/23/20 Range/Units 15:36 12:22 12:22 WBC 11.9 H (4.8-10.8) X10*3/uL RBC 4.06 L (4.20-5.50) X10*6/uL Hgb (12.0-16.0) g/dl Hct (37-47) % Lymph % (Auto) 19.1 L (20-40) % Abs Immat Gran (auto) 0.04 H (0.00-0.03) X10*3/uL Absolute Neuts (auto) (2.0-8.3) X10*3/uL PT 16.0 H (10.8-13.0) SEC INR 1.3 H (0.9-1.1) Anion Gap (12-20) BUN (9-16) mg/dL Calcium (8.4-10.2) mg/dL Urine Blood 1+ H (NEG) H & H 06/22/20 06/23/20 Range/Units 15:14 12:22 Hgb 11.9 L 12.1 (12.0-16.0) g/dl Hct 36.7 L 38.0 (37-47) % Coagulation 06/22/20 06/23/20 Range/Units 15:14 12:22 INR 1.4 H 1.3 H (0.9-1.1) All other labs normal. Diagnostic results Hip x-ray: image reviewed (RT femoral neck fracture ) Assessment and Plan (1) Closed fracture of right hip: Status: Acute I discussed the case with Dr. Rivers and explained the extent of the injury to the patient and options available which include surgical intervention. I explained the procedure in detail along with the length of recovery and rehab course. I explained the risk, benefits and alternatives. Risk including, but not limited to infection, blood clots, bleeding, non union or malunion and nerve tissue damage to surrounding areas. I answered all their questions and with their understanding they have consented to move forward with Operative Fixation of the right hip. The patient with be T&S, med clearance obtained and NPO after midnight.
[2020-06-23 13:21] LABS: Anion Gap 15 (12-20); Blood Urea Nitrogen 11 mg/dL (9-16); Calcium 8.9 mg/dL (8.4-10.2); Carbon Dioxide 23 mmol/L (22-29); Chloride 104 mmol/L (96-108); Estimated Glomerular Filt Rate > 60; Glucose Random 112 mg/dL (60-115); Potassium 4.2 mmol/l (3.3-5.1); Sodium 138 mmol/L (135-145)
[2020-06-23] MEDS: Docusate Sodium 100 MG CAPSULE PO (15:02)
--- NOTE | 2020-06-23 16:00 | MHC.CM.PN ---
Pt lives at home with family and has [employer] services as well as a [employer] RN CM. Pt uses a walker to ambulate. Pt has a HCP on file and her PCP is Sia Gilliam. Pt DCP TBD pending PT recommendations, likely STR. Pt will need BLS transport
[2020-06-24] VITALS (15 sets, daily range): BP systolic 120–149; BP diastolic 62–76; PULSE 86–113; RESP 12–19; TEMP 36.7–37.2; O2SAT 88–100
[2020-06-24] MEDS: oxyCODONE HCl Immed Release 5 MG TABLET PO ×4 (02:41→21:40)
[2020-06-24] MEDS: 0.9 % Sodium Chloride Flush 3 ML SYRINGE IVFLUSH ×2 (08:33→16:48)
--- NOTE | 2020-06-24 09:43 | PCS.ADM ---
AT TIME OF THIS NOTE, NO PHYSICAL THERAPY EVALUATION IN CHART YET. CASE MANAGEMENT TO CONTINUE TO FOLLOW FOR DISCHARGE PLANNING.
--- NOTE | 2020-06-24 09:57 | HO.ANESPROP2 ---
[facility] Past Medical History Medical History Anxiety BPV (benign positional vertigo) Compression fracture of L1 lumbar vertebra COPD (chronic obstructive pulmonary disease) Diverticular disease Eye exam, routine GERD (gastroesophageal reflux disease) History of lung cancer History of pulmonary embolism Hypercholesterolemia Hypertension Knee osteoarthritis Low vitamin D level Ophthalmologic abnormality Functional capacity: uses cane/walker Surgical History Surgical History History of ankle surgery History of cataract surgery Social History Social History Household Members: Family Housing: Unknown / Unable to assess Alcohol intake: never Smoking Status: Former smoker Smoked in Last 30 Days: No Use of substances other than those prescribed or required for medical reasons: No Currently Displaying Signs/Symptoms of Drug Intoxication Withdrawal: No Have you been hit, kicked, punched, or otherwise hurt by someone within the past year? If so, by whom?: No Do you feel safe in your current relationship?: No Current Relationship Is there a partner from a previous relationship who is making you feel unsafe now?: No Are you made to feel afraid or neglected: No Advance Directives: No Advance Directives Information Provided: Yes Do you have thoughts of harming others: None Do you have a plan to hurt others: No Plan Recently lost weight without trying: No service: No Current occupational status: retired Meds Allergies Allergy/AdvReac Type Severity Reaction Status Date / Time albuterol [Ventolin HFA] Allergy Unknown palpitation Verified 01/07/20 00:00 s No Known Allergies Allergy Unverified 03/02/20 15:39 Home Medications Medication Instructions Recorded Confirmed Type acetaminophen 650 mg 650 mg PO Q8H PRN 05/23/20 06/22/20 History tablet,extended release fluticasone 500 mcg-salmeterol 50 1 inh INHALATION BID 05/23/20 History mcg/dose blistr powdr for inhalation albuterol sulfate 2 puff INHALATION Q4H PRN 06/22/20 06/22/20 History meclizine 25 mg PO DAILY 06/22/20 06/22/20 History metoprolol tartrate 1 tab PO BID 06/22/20 06/22/20 History warfarin [Jantoven] 5 mg PO DAILY 06/22/20 06/22/20 History Exam Exam Date and Time: June 24, 2020 0957 Height,Weight and Vital Signs: Height 5 ft Weight 60.781 kg Last Vital Signs Temp 98.2 F 06/24/20 07:38 Pulse 104 H 06/24/20 07:38 Resp 18 06/24/20 07:38 BP 125/63 06/24/20 07:38 Pulse Ox 90 L 06/24/20 07:38 Pertinent Lab Results Pertinent Lab Results: Laboratory Tests 06/22/20 06/22/20 06/22/20 15:14 15:14 15:14 WBC 12.2 H RBC 4.00 L Hgb 11.9 L Hct 36.7 L MCV 91.8 MCH 29.8 MCHC 32.4 RDW 12.9 Plt Count 221 MPV 10.2 Immature Gran % (Auto) 0.3 Neut % (Auto) 68.6 Lymph % (Auto) 22.2 [place] % (Auto) 7.9 Eos % (Auto) 0.7 Baso % (Auto) 0.3 Lymph # (Auto) 2.7 [place] # (Auto) 1.0 Eos # (Auto) 0.1 Baso # (Auto) 0.0 Abs Immat Gran (auto) 0.04 H Absolute Neuts (auto) 8.4 H Absolute Nucleated RBC 0.000 Nucleated RBC % (auto) 0.0 PT INR APTT Sodium 137 Potassium 4.0 Chloride 107 Carbon Dioxide 23 Anion Gap 11 L BUN 8 L Creatinine 0.75 Estim Creat Clear Calc 48.7 Estimated GFR > 60 Random Glucose 94 Calcium 8.2 L Total Bilirubin 0.6 AST 15 ALT 9 Alkaline Phosphatase 71 Troponin I High Sens < 3.5 Total Protein 7.3 Albumin 3.9 Urine Color Urine Appearance Urine pH Ur Specific [place] Urine Protein Urine Glucose (UA) Urine Ketones Urine Blood Urine Nitrite Ur Leukocyte Esterase Urine RBC Urine WBC Ur Squamous Epith Cells Ur Renal Epithelial Cell Urine Bacteria COVID-19 (JAMES) COVID-19 Clin Com Blood Type Antibody Screen 06/22/20 06/22/20 06/22/20 15:14 15:36 18:07 WBC RBC Hgb Hct MCV MCH MCHC RDW Plt Count MPV Immature Gran % (Auto) Neut % (Auto) Lymph % (Auto) [place] % (Auto) Eos % (Auto) Baso % (Auto) Lymph # (Auto) [place] # (Auto) Eos # (Auto) Baso # (Auto) Abs Immat Gran (auto) Absolute Neuts (auto) Absolute Nucleated RBC Nucleated RBC % (auto) PT 16.4 H INR 1.4 H APTT 35.6 Sodium Potassium Chloride Carbon Dioxide Anion Gap BUN Creatinine Estim Creat Clear Calc Estimated GFR Random Glucose Calcium Total Bilirubin AST ALT Alkaline Phosphatase Troponin I High Sens Total Protein Albumin Urine Color YELLOW Urine Appearance CLEAR Urine pH 7.5 Ur Specific [place] 1.010 Urine Protein NEG Urine Glucose (UA) NEG Urine Ketones NEG Urine Blood 1+ H Urine Nitrite NEG Ur Leukocyte Esterase NEG Urine RBC 1-4 Urine WBC 1-4 Ur Squamous Epith Cells NONE Ur Renal Epithelial Cell 1+ Urine Bacteria NONE COVID-19 (JAMES) Negative COVID-19 Clin Com See Note Blood Type Antibody Screen 06/23/20 06/23/20 06/23/20 12:22 12:22 12:22 WBC 11.9 H RBC 4.06 L Hgb 12.1 Hct 38.0 MCV 93.6 MCH 29.8 MCHC 31.8 RDW 13.3 Plt Count 212 MPV 10.2 Immature Gran % (Auto) 0.3 Neut % (Auto) 68.6 Lymph % (Auto) 19.1 L [place] % (Auto) 8.7 Eos % (Auto) 2.9 Baso % (Auto) 0.4 Lymph # (Auto) 2.3 [place] # (Auto) 1.0 Eos # (Auto) 0.4 Baso # (Auto) 0.1 Abs Immat Gran (auto) 0.04 H Absolute Neuts (auto) 8.2 Absolute Nucleated RBC 0.000 Nucleated RBC % (auto) 0.0 PT 16.0 H INR 1.3 H APTT Sodium 138 Potassium 4.2 Chloride 104 Carbon Dioxide 23 Anion Gap 15 BUN 11 Creatinine 0.85 Estim Creat Clear Calc 43.0 Estimated GFR > 60 Random Glucose 112 Calcium 8.9 D Total Bilirubin AST ALT Alkaline Phosphatase Troponin I High Sens Total Protein Albumin Urine Color Urine Appearance Urine pH Ur Specific [place] Urine Protein Urine Glucose (UA) Urine Ketones Urine Blood Urine Nitrite Ur Leukocyte Esterase Urine RBC Urine WBC Ur Squamous Epith Cells Ur Renal Epithelial Cell Urine Bacteria COVID-19 (JAMES) COVID-19 Clin Com Blood Type Antibody Screen 06/23/20 15:32 WBC RBC Hgb Hct MCV MCH MCHC RDW Plt Count MPV Immature Gran % (Auto) Neut % (Auto) Lymph % (Auto) [place] % (Auto) Eos % (Auto) Baso % (Auto) Lymph # (Auto) [place] # (Auto) Eos # (Auto) Baso # (Auto) Abs Immat Gran (auto) Absolute Neuts (auto) Absolute Nucleated RBC Nucleated RBC % (auto) PT INR APTT Sodium Potassium Chloride Carbon Dioxide Anion Gap BUN Creatinine Estim Creat Clear Calc Estimated GFR Random Glucose Calcium Total Bilirubin AST ALT Alkaline Phosphatase Troponin I High Sens Total Protein Albumin Urine Color Urine Appearance Urine pH Ur Specific [place] Urine Protein Urine Glucose (UA) Urine Ketones Urine Blood Urine Nitrite Ur Leukocyte Esterase Urine RBC Urine WBC Ur Squamous Epith Cells Ur Renal Epithelial Cell Urine Bacteria COVID-19 (JAMES) COVID-19 Clin Com Blood Type A Positive Antibody Screen NEGATIVE Airway Mallampati Class: II TM Dist: >3cm Neck ROM: Full Denture: Upper and Lower Heart: RRR Lungs: CTA Assessment and Plan Final Anesthetic Review NPO: Yes ASA Class: III and Emergency Final Preanesthetic Review: No Changes in Pt Med Stat, Meds/Allgs Chart Reviewed, Consent Obtained/Reviewed and Anes Risks/Benef Reviewed Patient Risk: Intermediate Procedure Risk: Intermediate Anesthetic Plan Anesthetic Plan: GA Disposition: Standard PACU
--- NOTE | 2020-06-24 10:14 | HO.PM.IMPN ---
Subjective Subjective Date of Service: 06/24/20 Interval History: Seen in f/u for hip fracture. Has pain in the hip doesn't want morphine Review of Systems no fever pain in the hip Physical Exam Vital Signs: Vital Signs: Last Vital Signs Temp 98.2 F 06/24/20 07:38 Pulse 104 H 06/24/20 07:38 Resp 18 06/24/20 07:38 BP 125/63 06/24/20 07:38 Pulse Ox 90 L 06/24/20 07:38 Body Mass Index 26.2 Const: General: cooperative and no acute distress Orientation/consciousness: patient oriented x3 Resp: Effort & Inspection: normal respiratory effort Auscultation: clear to auscultation bilaterally Cardio: Rhythm: regular rhythm Heart sounds: S1 normal heart sound present and S2 normal heart sound present Peripheral pulses: other (No peripheral edema) GI: Other: normal bowel sounds, non-tender, no distention Skin: General skin exam: no rashes or lesions noted Neuro: General: patient oriented x3 Psych: Appearance: grossly normal Objective Data Current Medications Generic Name Dose Route Start Last Admin Trade Name Freq PRN Reason Stop Dose Admin Albuterol Sulfate 2 puff 06/22/20 19:09 06/23/20 15:58 Albuterol Sulfate 90 Mcg 8 Gm Inhaler INHALE 2 puff Q4H PRN Administration Shortness Of Breath Docusate Sodium 100 mg 06/22/20 18:46 06/23/20 15:02 Docusate Sodium 100 Mg Capsule PO 100 mg DAILY PRN Administration Constipation Meclizine HCl 25 mg 06/23/20 09:00 06/23/20 08:24 Meclizine Hcl 25 Mg Tablet PO 25 mg DAILY MILTON Administration Metoprolol Tartrate 25 mg 06/22/20 21:00 06/23/20 20:52 Metoprolol Tartrate 25 Mg Tablet PO 25 mg BID MILTON Administration Protocol Ondansetron HCl 4 mg 06/22/20 18:46 Ondansetron Hcl 4 Mg/2 Ml Vial IVPUSH Q8H PRN Nausea and Vomiting Oxycodone HCl 5 mg 06/22/20 18:46 06/24/20 08:38 Oxycodone Hcl Immed Release 5 Mg Tablet PO 5 mg Q4H PRN Administration Pain, Severe (Pain Scale 7-10) Pharmacy Consult 1 each 06/22/20 17:54 Consult Rx Perform Med Rec MISCELLANE ONCE PRN Consult order Sodium Chloride 3 ml 06/23/20 00:00 06/24/20 08:33 0.9 % Sodium Chloride Flush 3 Ml Syringe IVFLUSH 3 ml QSHIFT MILTON Administration Labs CBC & Chem 7: 06/23/20 12:22 06/23/20 12:22 Assessment and Plan (1) Closed fracture of right hip: Status: Acute (2) History of pulmonary embolism: Status: Inactive Assessment and Plan: 80-year-old with history osteoarthritis, PE Coumadin, hypertension, COPD presents after mechanical fall found to have a right subcapital femoral neck fracture Right subcapital femoral neck fracture For operative repair today 06/24 No additional workup prior to planned procedure Hold Coumadin and resume post op pain control - wish not to have morphine if possible. IV Tylenol, p.r.n. oxycodone h/o PE INR sub therapeutic Hold Coumadin for surgery COPD Lungs clear Continue p.r.n. inhalers Hypertension Continue metoprolol DVT prophylaxis-mechanical devices Code status-full code
--- NOTE | 2020-06-24 10:24 | P.PCNOP_ITS ---
Brief Operative Note Date of procedure: 06/24/20 Pre-op diagnosis: Subacpital fracture right hip Post-op diagnosis: same Procedure: right hip hemiarthroplasty Anesthesia: GETA Electrical Sign Servicer: Jocelyne Krishnamurthy Estimated blood loss (mL): 100 Condition: stable Disposition: PACU
--- NOTE | 2020-06-24 10:25 | MHC.SHP ---
Pre-Procedural Eval Section A The patient is an INPATIENT: Yes Section B Chief Complaint: Right hip fracture Allergies: Allergies Allergy/AdvReac Type Severity Reaction Status Date / Time albuterol [Ventolin HFA] Allergy Unknown palpitation Verified 01/07/20 00:00 s No Known Allergies Allergy Unverified 03/02/20 15:39 Plan I have reviewed the history and physical and performed a pertinent physical examination on my patient. No changes have occurred unless specified.
--- NOTE | 2020-06-24 12:27 | OP_ITS ---
SURGEON: Tomasa Rivers MD PREOPERATIVE DIAGNOSIS: Subcapital fracture, right hip. POSTOPERATIVE DIAGNOSIS: Subcapital fracture, right hip. PROCEDURE PERFORMED: Operative fixation of right hip with hemiarthroplasty - Pike Accolade II, size 4 x 127 femur, standard neck sleeve, 42 mm Unitrax head. ESTIMATED BLOOD LOSS: COMPLICATIONS: ANESTHESIA: ASSISTANTS: SPECIMENS: CLINICAL NOTE: This lady fell and injured her hip on the date of her admission and she subsequently suffered the above-noted injury. After explaining the risks, benefits, and alternatives and answering all her questions, it was mutually agreed upon to carry out the following procedure. DESCRIPTION OF PROCEDURE: Under general anesthetic, the patient was placed in the left lateral decubitus position with the right hip up. The right hip was prepped and draped in standard fashion with the right leg free. A surgical time-out was then performed. The patient was identified, procedure confirmed, and site confirmed. Medical analogy and history reviewed. Preoperative antibiotics were given. DVT prophylaxis was not performed. All other items were discussed and agreed upon. A standard anterolateral approach to the hip was carried out and taken down through subcutaneous tissues. Hemostasis was achieved along the way using electrocautery. This brought us down to the level of the fascia rosi and it was divided along the length of the incision. This brought us to the abductor musculature, where the anterior two-thirds were elevated directly off the capsule down to the level of the acetabulum. Capsulectomy was then performed. The fracture hematoma was removed. The fracture was delivered through the wound. It was resected according to preoperative templating. The head was then removed. It measured to a 42 mm size. The acetabulum was inspected. There was no evidence of any arthritis, and therefore, we turned our attention to the femur. A box osteotome was used to lateralize the canal. The T-reamer was used in standard fashion. The broach was used, starting with a 0 up to a 4. At this point, it had excellent fit, fill, and rotational alignment. The calcar reamer was then used. A trial reduction was performed with the standard neck sleeve and a 42 mm head, which gave us excellent range of motion, stability, and leg lengths, and therefore, the size 4 x 127-degree Accolade II femur with the standard neck sleeve and a 42 mm Unitrax head were selected and brought up the table. The trial components were then all removed. The acetabulum and the femur were thoroughly irrigated. Permanent components were brought up the table. The femoral component was tapped into place with the same fit and fill as a trial. The Borrero taper was cleaned and dried, and the neck sleeve and the head was tapped into place. The final reduction was then performed, and again, demonstrated full range of motion, excellent leg length, and stability and therefore proceeded to closure. The wound was thoroughly irrigated. Abductor musculature was closed with #2 Dexon. The fascia rosi was closed with #2 Quill suture. The skin was approximated using interrupted 2-0 Dexon. Skin was closed with dickson. Sterile dressing was then applied. The patient's anesthesia was then reversed and transferred supine to the room bed and then taken to the recovery room in good condition. Intraoperatively, there was approximately 100 mL blood loss. No intraoperative transfusions or complications. FURNITURE POLISHER: LUCY Tee MD KKI/PUJA / [id number]
[2020-06-24] MEDS: ceFAZolin Sodium/Dextrose,Iso 2 GM/50 ML PIGGYBACK IV (16:43)
[2020-06-24] MEDS: Metoprolol Tartrate 25 MG TABLET PO (20:18)
[2020-06-25] MEDS: 0.9 % Sodium Chloride Flush 3 ML SYRINGE IVFLUSH ×4 (01:19→23:00)
[2020-06-25] MEDS: oxyCODONE HCl Immed Release 5 MG TABLET PO ×3 (04:42→16:38)
[2020-06-25 07:16] VITALS: BP 123/75; PULSE 88; RESP 16; TEMP 36.5; O2SAT 97
[2020-06-25 08:02] VITALS: BP 123/75; PULSE 88
[2020-06-25] MEDS: Meclizine HCl 25 MG TABLET PO (08:02)
[2020-06-25] MEDS: Metoprolol Tartrate 25 MG TABLET PO ×2 (08:02→19:22)
--- NOTE | 2020-06-25 09:34 | P.PNOP_ITS ---
Subjective Subjective Date of Service: 06/25/20 Interval history: POD1 s/p lt hip jing. Pt. resting comfortably in bed. States pain is well managed. No overnight events. Physical Exam Vital Signs: Vital Signs: Last Vital Signs Temp 97.7 F 06/25/20 07:16 Pulse 88 06/25/20 08:02 Resp 16 06/25/20 07:16 BP 123/75 06/25/20 08:02 Pulse Ox 97 06/25/20 07:16 Body Mass Index 26.2 Const: General: cooperative, healthy appearing and no acute distress Resp: Effort & Inspection: normal respiratory effort and able to speak in c omplete sentences Cardio: Rate: regular rate Peripheral pulses: Peripheral pulses 2+ throughout GI: Inspection: Yes normal to inspection Palpation (GI): Soft to palpation Skin: General skin exam: no rashes or lesions noted Extrem: Other: No ecchymosis, redness, or drainage. Dressing is clean dry and inctact. NVI Progress Note: A&P Assessment and plan (1) S/P hip hemiarthroplasty: Status: Acute Assessment and Plan: Continue pain mgmnt Begin Lovenox bridge to Coumadin for dvt ppx begin PT for RT hip hemiarthoplasty Dispo planning-Pending PT eval, pain mgmnt Fall Risk Details Current Medications: Current Medications Generic Name Dose Route Start Last Admin Trade Name Freq PRN Reason Stop Dose Admin Albuterol Sulfate 2 puff 06/22/20 19:09 06/23/20 15:58 Albuterol Sulfate 90 Mcg 8 Gm Inhaler INHALE 2 puff Q4H PRN Administration Shortness Of Breath Docusate Sodium 100 mg 06/22/20 18:46 06/23/20 15:02 Docusate Sodium 100 Mg Capsule PO 100 mg DAILY PRN Administration Constipation Enoxaparin Sodium 40 mg 06/25/20 12:00 Enoxaparin Sodium 40 Mg/0.4 Ml Syringe SUBCUT Q24H MILTON Meclizine HCl 25 mg 06/23/20 09:00 06/25/20 08:02 Meclizine Hcl 25 Mg Tablet PO 25 mg DAILY MILTON Administration Metoprolol Tartrate 25 mg 06/22/20 21:00 06/25/20 08:02 Metoprolol Tartrate 25 Mg Tablet PO 25 mg BID MILTON Administration Protocol Ondansetron HCl 4 mg 06/22/20 18:46 Ondansetron Hcl 4 Mg/2 Ml Vial IVPUSH Q8H PRN Nausea and Vomiting Oxycodone HCl 5 mg 06/22/20 18:46 06/25/20 04:42 Oxycodone Hcl Immed Release 5 Mg Tablet PO 5 mg Q4H PRN Administration Pain, Severe (Pain Scale 7-10) Pharmacy Consult 1 each 06/22/20 17:54 Consult Rx Perform Med Rec MISCELLANE ONCE PRN Consult order Sodium Chloride 3 ml 06/23/20 00:00 06/25/20 08:02 0.9 % Sodium Chloride Flush 3 Ml Syringe IVFLUSH 3 ml QSHIFT MILTON Administration Time Spent With Patient Time: Total time spent is greater than 50% in coordination of care (as documented) at patient's floor/unit and/or counseling patient: Time with patient: less than 15 minutes
[2020-06-25 09:42] LABS: Basophils Percent Auto 0.1 % (0-2); Eosinophils Absolute Auto 0.1 X10*3/uL (0.0-0.4); Eosinophils Percent Auto 0.4 % (0-4); Hematocrit 33.2 % (37-47); Hemoglobin 10.7 g/dl (12.0-16.0); Imm Gran Abs Auto 0.04 X10*3/uL (0.00-0.03); Imm Gran Pct Auto 0.3 % (0.0-0.4); Lymphocytes Absolute Auto 3.4 X10*3/uL (1.2-4.9); Lymphocytes Percent Auto 23.9 % (20-40); MANUAL DIFF FLAG SCAN; Mean Corpuscular HGB Conc 32.2 g/dl (31.0-35.0); Mean Corpuscular Hemoglobin 29.8 pg (27.0-33.0); Mean Corpuscular Volume 92.5 fL (80-98); Mean Platelet Volume 10.7 fL (9.4-12.3); Monocytes Absolute Auto 2.2 X10*3/uL (0.1-1.2); Monocytes Percent Auto 15.3 % (2-11); Neutrophils Absolute Auto 8.5 X10*3/uL (2.0-8.3); Platelet Count 195 X10*3/uL (160-400); Red Blood Count 3.59 X10*6/uL (4.20-5.50); SCAN SMEAR FLAG 1; White Blood Count 14.1 X10*3/uL (4.8-10.8)
[2020-06-25 10:12] LABS: SLIDE REVIEW VERIFIED
[2020-06-25 10:28] LABS: Anion Gap 12 (12-20); Blood Urea Nitrogen 11 mg/dL (9-16); Calcium 8.3 mg/dL (8.4-10.2); Carbon Dioxide 27 mmol/L (22-29); Chloride 100 mmol/L (96-108); Creatinine Clr Calc Pharmacy 49.4; Estimated Glomerular Filt Rate > 60; Glucose Random 107 mg/dL (60-115); Potassium 4.2 mmol/l (3.3-5.1); Sodium 135 mmol/L (135-145)
--- NOTE | 2020-06-25 11:14 | HO.PM.IMPN ---
Subjective Subjective Date of Service: 06/25/20 Interval History: Seen in f/u for hip fracture. POD1, has pain with movment Review of Systems no fever pain in the hip Physical Exam Vital Signs: Vital Signs: Last Vital Signs Temp 97.7 F 06/25/20 07:16 Pulse 88 06/25/20 08:02 Resp 16 06/25/20 07:16 BP 123/75 06/25/20 08:02 Pulse Ox 97 06/25/20 07:16 Body Mass Index 26.2 Const: General: cooperative and no acute distress Orientation/consciousness: patient oriented x3 Resp: Effort & Inspection: normal respiratory effort Auscultation: clear to auscultation bilaterally Cardio: Rhythm: regular rhythm Heart sounds: S1 normal heart sound present and S2 normal heart sound present Peripheral pulses: other (No peripheral edema) GI: Other: normal bowel sounds, non-tender, no distention Skin: Other: wound dressing in place General skin exam: no rashes or lesions noted Neuro: General: patient oriented x3 Psych: Appearance: grossly normal Objective Data Current Medications Generic Name Dose Route Start Last Admin Trade Name Freq PRN Reason Stop Dose Admin Albuterol Sulfate 2 puff 06/22/20 19:09 06/23/20 15:58 Albuterol Sulfate 90 Mcg 8 Gm Inhaler INHALE 2 puff Q4H PRN Administration Shortness Of Breath Docusate Sodium 100 mg 06/22/20 18:46 06/23/20 15:02 Docusate Sodium 100 Mg Capsule PO 100 mg DAILY PRN Administration Constipation Enoxaparin Sodium 40 mg 06/25/20 12:00 Enoxaparin Sodium 40 Mg/0.4 Ml Syringe SUBCUT Q24H MILTON Meclizine HCl 25 mg 06/23/20 09:00 06/25/20 08:02 Meclizine Hcl 25 Mg Tablet PO 25 mg DAILY [place]TON Administration Metoprolol Tartrate 25 mg 06/22/20 21:00 06/25/20 08:02 Metoprolol Tartrate 25 Mg Tablet PO 25 mg BID MILTON Administration Protocol Ondansetron HCl 4 mg 06/22/20 18:46 Ondansetron Hcl 4 Mg/2 Ml Vial IVPUSH Q8H PRN Nausea and Vomiting Oxycodone HCl 5 mg 06/22/20 18:46 06/25/20 10:06 Oxycodone Hcl Immed Release 5 Mg Tablet PO 5 mg Q4H PRN Administration Pain, Severe (Pain Scale 7-10) Pharmacy Consult 1 each 06/22/20 17:54 Consult Rx Perform Med Rec MISCELLANE ONCE PRN Consult order Sodium Chloride 3 ml 06/23/20 00:00 06/25/20 08:02 0.9 % Sodium Chloride Flush 3 Ml Syringe IVFLUSH 3 ml QSHIFT MILTON Administration Labs CBC & Chem 7: 06/25/20 09:21 06/25/20 09:21 Assessment and Plan (1) Closed fracture of right hip: Status: Acute (2) History of pulmonary embolism: Status: Inactive Assessment and Plan: 80-year-old with history osteoarthritis, PE Coumadin, hypertension, COPD presents after mechanical fall found to have a right subcapital femoral neck fracture Right subcapital femoral neck fracture Oerative repair done on 06/24 Oxycodone and APAP for pain Lovenox bridge with coumadin for DVT prophylaxis. PT eval in the morning. h/o PE coumadin was on hold prior o surgery, resume toay COPD Lungs clear Continue p.r.n. inhalers Hypertension Continue metoprolol DVT prophylaxis--Lovenox and coumadina as stated above Code status-full code
[2020-06-25] MEDS: Albuterol Sulfate 90 MCG 8 GM INHALER 2 PUFF INHALE (11:45)
[2020-06-25 11:46] VITALS: PULSE 86; O2SAT 93
--- NOTE | 2020-06-25 11:53 | HO.POSTANES ---
Post Anesthesia Evaluation Post Anesthesia Evaluation Vital Signs: Vital Signs Temp Pulse Resp BP Pulse Ox 06/25/20 11:46 86 06/25/20 08:02 88 123/75 06/25/20 07:16 97.7 F 88 16 123/75 97 Anesthesia: General Endotracheal-GETA Mental Status: Awake Pain Control: Satisfactory Nausea/Vomiting: None Hydration: Adequate Anesthesia-Related Issues: No Anes. Related Issues
[2020-06-25] MEDS: Enoxaparin Sodium 40 MG/0.4 ML SYRINGE SUBCUT (12:47)
[2020-06-25] MEDS: ondansetron HCL 4 MG/2 ML VIAL IVPUSH (13:14)
[2020-06-25] MEDS: HYDROmorphone HCl 0.5 MG/0.5 ML SYRINGE 0.25 MG IVPUSH ×2 (13:15→21:36)
[2020-06-25 15:25] VITALS: BP 160/76; PULSE 94; TEMP 37.3; O2SAT 98
[2020-06-25] MEDS: Warfarin Sodium 5 MG TABLET PO (18:43)
[2020-06-25 23:42] VITALS: BP 148/67; PULSE 99; RESP 14; TEMP 36.6; O2SAT 96
[2020-06-26] MEDS: oxyCODONE HCl Immed Release 5 MG TABLET PO ×2 (06:07→12:16)
[2020-06-26 06:32] LABS: Basophils Percent Auto 0.2 % (0-2); Eosinophils Percent Auto 0.1 % (0-4); Hematocrit 33.3 % (37-47); Hemoglobin 10.9 g/dl (12.0-16.0); Imm Gran Abs Auto 0.06 X10*3/uL (0.00-0.03); Imm Gran Pct Auto 0.4 % (0.0-0.4); Lymphocytes Absolute Auto 2.6 X10*3/uL (1.2-4.9); Lymphocytes Percent Auto 18.5 % (20-40); MANUAL DIFF FLAG SCAN; Mean Corpuscular HGB Conc 32.7 g/dl (31.0-35.0); Mean Corpuscular Hemoglobin 29.7 pg (27.0-33.0); Mean Corpuscular Volume 90.7 fL (80-98); Mean Platelet Volume 10.8 fL (9.4-12.3); Monocytes Percent Auto 14.1 % (2-11); Neutrophils Absolute Auto 9.4 X10*3/uL (2.0-8.3); Neutrophils Percent Auto 66.7 % (45-73); Platelet Count 211 X10*3/uL (160-400); Red Blood Count 3.67 X10*6/uL (4.20-5.50); Red Cell Distribution Width 12.7 % (11.0-16.0); SCAN SMEAR FLAG 1; White Blood Count 14.1 X10*3/uL (4.8-10.8)
[2020-06-26 06:43] LABS: INTERNATIONAL NORM RATIO 1.7 (0.9-1.1); Prothrombin Time 19.8 SEC (10.8-13.0)
[2020-06-26 06:59] LABS: Anion Gap 14 (12-20); Blood Urea Nitrogen 13 mg/dL (9-16); Calcium 8.3 mg/dL (8.4-10.2); Carbon Dioxide 25 mmol/L (22-29); Chloride 98 mmol/L (96-108); Creatinine Clr Calc Pharmacy 48.7; Estimated Glomerular Filt Rate > 60; Glucose Random 122 mg/dL (60-115); Sodium 133 mmol/L (135-145)
--- NOTE | 2020-06-26 07:15 | PM.PNORT ---
Subjective Subjective Date of Service: 06/26/20 Interval history: POD2 s/p rt total hemiartrhoplasty. Pt. resting comfortably in bed. No overnight events. Pain is well controlled. Physical Exam Vital Signs: Vital Signs: Last Vital Signs Temp 98 F 06/25/20 23:42 Pulse 99 06/25/20 23:42 Resp 14 06/25/20 23:42 BP 148/67 H 06/25/20 23:42 Pulse Ox 96 06/25/20 23:42 Body Mass Index 26.2 Const: General: cooperative, healthy appearing and no acute distress Resp: Effort & Inspection: normal respiratory effort and able to speak in complete sentences Cardio: Rate: regular rate Peripheral pulses: Peripheral pulses 2+ throughout GI: Inspection: Yes normal to inspection Palpation (GI): Soft to palpation Skin: General skin exam: no rashes or lesions noted Extrem: Other: No ecchyosis, redness, or drainage to the rt hip. NVI. Dressing is clean, dry, and intact. Progress Note: A&P Assessment and plan (1) S/P hip hemiarthroplasty: Status: Acute Assessment and Plan: Continue pain mgmnt Continue Lovenox bridge to Coumadin for dvt ppx begin PT for RT hip hemiarthroplasty Dispo planning-Pending PT eval, pain mgmnt Fall Risk Details Current Medications: Current Medications Generic Name Dose Route Start Last Admin Trade Name Freq PRN Reason Stop Dose Admin Albuterol Sulfate 2 puff 06/22/20 19:09 06/25/20 11:45 Albuterol Sulfate 90 Mcg 8 Gm Inhaler INHALE 2 puff Q4H PRN Administration Shortness Of Breath Docusate Sodium 100 mg 06/22/20 18:46 06/23/20 15:02 Docusate Sodium 100 Mg Capsule PO 100 mg DAILY PRN Administration Constipation Enoxaparin Sodium 40 mg 06/25/20 12:00 06/25/20 12:47 Enoxaparin Sodium 40 Mg/0.4 Ml Syringe SUBCUT 40 mg Q24H MILTON Administration Hydromorphone HCl 0.25 mg 06/25/20 12:45 06/25/20 21:36 Hydromorphone Hcl 0.5 Mg/0.5 Ml Syringe IVPUSH 0.25 mg Q4H PRN Administration Pain, Severe (Pain Scale 7-10) Meclizine HCl 25 mg 06/23/20 09:00 06/25/20 08:02 Meclizine Hcl 25 Mg Tablet PO 25 mg DAILY MILTON Administration Metoprolol Tartrate 25 mg 06/22/20 21:00 06/25/20 19:22 Metoprolol Tartrate 25 Mg Tablet PO 25 mg BID MILTON Administration Protocol Ondansetron HCl 4 mg 06/22/20 18:46 06/25/20 13:14 Ondansetron Hcl 4 Mg/2 Ml Vial IVPUSH 4 mg Q8H PRN Administration Nausea and Vomiting Oxycodone HCl 5 mg 06/22/20 18:46 06/26/20 06:07 Oxycodone Hcl Immed Release 5 Mg Tablet PO 5 mg Q4H PRN Administration Pain, Severe (Pain Scale 7-10) Pharmacy Consult 1 each 06/22/20 17:54 Consult Rx Perform Med Rec MISCELLANE ONCE PRN Consult order Sodium Chloride 3 ml 06/23/20 00:00 06/25/20 23:00 0.9 % Sodium Chloride Flush 3 Ml Syringe IVFLUSH 3 ml QSHIFT [place] Administration Warfarin Sodium 5 mg 06/25/20 18:00 06/25/20 18:43 Warfarin Sodium 5 Mg Tablet PO 5 mg DAILY@1800 MILTON Administration Time Spent With Patient Time: Total time spent is greater than 50% in coordination of care (as documented) at patient's floor/unit and/or counseling patient: Time with patient: less than 15 minutes
[2020-06-26 07:55] VITALS: BP 141/63; PULSE 98; RESP 19; TEMP 37.1; O2SAT 97
[2020-06-26 08:57] VITALS: BP 141/63; PULSE 98; O2SAT 97
[2020-06-26] MEDS: Meclizine HCl 25 MG TABLET PO (08:58)
[2020-06-26] MEDS: Metoprolol Tartrate 25 MG TABLET PO (08:58)
[2020-06-26] MEDS: 0.9 % Sodium Chloride Flush 3 ML SYRINGE IVFLUSH (09:04)
[2020-06-26 09:13] LABS: SLIDE REVIEW VERIFIED
--- NOTE | 2020-06-26 09:37 | PM.DS ---
DS: Providers Provider Date of Service: 07/17/20 Date of admission: 06/22/20 18:46 Primary care physician: Unknown Physician DS: Diagnosis Discharge Diagnosis (1) S/P hip hemiarthroplasty: Status: Acute DS: Medications Discharge Medications Home Medications: Home Medications Medication Instructions Recorded Confirmed acetaminophen 650 mg 650 mg PO Q8H PRN 05/23/20 06/22/20 tablet,extended release fluticasone 500 mcg-salmeterol 50 1 inh INHALATION BID 05/23/20 mcg/dose blistr powdr for inhalation albuterol sulfate 2 puff INHALATION Q4H PRN 06/22/20 06/22/20 meclizine 25 mg PO DAILY 06/22/20 06/22/20 metoprolol tartrate 1 tab PO BID 06/22/20 06/22/20 warfarin [Jantoven] 5 mg PO DAILY 06/22/20 06/22/20 Previous Rx's Medication Instructions Recorded tramadol 50 mg tablet 50 mg PO TID PRN 30 Days #90 tab 05/03/20 oxycodone 5 mg PO Q4H PRN #20 tab 06/26/20 DS: Summary Hospital Course Hospital Course: HPI: This is an 80-year-old female who was brought to the emergency department after a full with complaints of hip pain. Patient reports she was using her walker to ambulate down the hallway but her small dog got tangled up in her feet causing her to fall. She denied any dizziness chest pain or shortness of breath prior to her fall. She had sudden onset of right hip pain and was unable to get up. In the emergency department imaging revealed a right subcapital femoral neck fracture. Lab work revealed leukocytosis of 12.2 1.4. The remainder of her lab work was unremarkable. The remainder of her imaging was also unremarkable. The orthopedic surgeon recommended admission to medical service. Hospital course: Right subcapital femoral neck fracture--she underwen operative repair on 06/24 and is doing. She will go to STR. To have coumadin for DVT prophylaxis. Oxycodone for pain. History of PE Coumadin was on hold prior o surgery, restarted. INR is 1.7, continue coumadin COPD Lungs clear Continue p.r.n. inhalers Hypertension Continue metoprolol Time Spent with Patient Time attestation: Total time spent providing and/or coordinating discharge services: Discharge coordination time: Greater than 30 minutes Physical Exam Vital Signs: Vital Signs: Last Vital Signs Temp 98.7 F 06/26/20 07:55 Pulse 98 06/26/20 08:57 Resp 19 06/26/20 07:55 BP 141/63 H 06/26/20 08:57 Pulse Ox 97 06/26/20 08:57 Body Mass Index 26.2 Const: General: cooperative and no acute distress Orientation/consciousness: patient oriented x3 Resp: Effort & Inspection: normal respiratory effort Auscultation: clear to auscultation bilaterally Cardio: Rhythm: regular rhythm Heart sounds: S1 normal heart sound present and S2 normal heart sound present Peripheral pulses: other (No peripheral edema) GI: Other: normal bowel sounds, non-tender, no distention Skin: Other: wound dressing in place General skin exam: no rashes or lesions noted Neuro: General: patient oriented x3 Psych: Appearance: grossly normal DS: Data Data Completed and Pending Pending studies at discharge: Pending at discharge 06/24/20 11:44 Surgical [PTH] Routine Labs on day of discharge: Laboratory Tests 06/22/20 06/22/20 06/22/20 15:14 15:14 15:14 WBC 12.2 H RBC 4.00 L Hgb 11.9 L Hct 36.7 L MCV 91.8 MCH 29.8 MCHC 32.4 RDW 12.9 Plt Count 221 MPV 10.2 Immature Gran % (Auto) 0.3 Neut % (Auto) 68.6 Lymph % (Auto) 22.2 [place] % (Auto) 7.9 Eos % (Auto) 0.7 Baso % (Auto) 0.3 Lymph # (Auto) 2.7 [place] # (Auto) 1.0 Eos # (Auto) 0.1 Baso # (Auto) 0.0 Abs Immat Gran (auto) 0.04 H Absolute Neuts (auto) 8.4 H Absolute Nucleated RBC 0.000 Nucleated RBC % (auto) 0.0 Smear Tech's Comments PT INR APTT Sodium 137 Potassium 4.0 Chloride 107 Carbon Dioxide 23 Anion Gap 11 L BUN 8 L Creatinine 0.75 Estim Creat Clear Calc 48.7 Estimated GFR > 60 Random Glucose 94 Calcium 8.2 L Total Bilirubin 0.6 AST 15 ALT 9 Alkaline Phosphatase 71 Troponin I High Sens < 3.5 Total Protein 7.3 Albumin 3.9 Urine Color Urine Appearance Urine pH Ur Specific [place] Urine Protein Urine Glucose (UA) Urine Ketones Urine Blood Urine Nitrite Ur Leukocyte Esterase Urine RBC Urine WBC Ur Squamous Epith Cells Ur Renal Epithelial Cell Urine Bacteria COVID-19 (JAMES) COVID-19 Clin Com Blood Type Antibody Screen 06/22/20 06/22/20 06/22/20 15:14 15:36 18:07 WBC RBC Hgb Hct MCV MCH MCHC RDW Plt Count MPV Immature Gran % (Auto) Neut % (Auto) Lymph % (Auto) [place] % (Auto) Eos % (Auto) Baso % (Auto) Lymph # (Auto) [place] # (Auto) Eos # (Auto) Baso # (Auto) Abs Immat Gran (auto) Absolute Neuts (auto) Absolute Nucleated RBC Nucleated RBC % (auto) Smear Tech's Comments PT 16.4 H INR 1.4 H APTT 35.6 Sodium Potassium Chloride Carbon Dioxide Anion Gap BUN Creatinine Estim Creat Clear Calc Estimated GFR Random Glucose Calcium Total Bilirubin AST ALT Alkaline Phosphatase Troponin I High Sens Total Protein Albumin Urine Color YELLOW Urine Appearance CLEAR Urine pH 7.5 Ur Specific Wend[place] 1.010 Urine Protein NEG Urine Glucose (UA) NEG Urine Ketones NEG Urine Blood 1+ H Urine Nitrite NEG Ur Leukocyte Esterase NEG Urine RBC 1-4 Urine WBC 1-4 Ur Squamous Epith Cells NONE Ur Renal Epithelial Cell 1+ Urine Bacteria NONE COVID-19 (JAEMS) Negative COVID-19 Clin Com See Note Blood Type Antibody Screen 06/23/20 06/23/20 06/23/20 12:22 12:22 12:22 WBC 11.9 H RBC 4.06 L Hgb 12.1 Hct 38.0 MCV 93.6 MCH 29.8 MCHC 31.8 RDW 13.3 Plt Count 212 MPV 10.2 Immature Gran % (Auto) 0.3 Neut % (Auto) 68.6 Lymph % (Auto) 19.1 L [place] % (Auto) 8.7 Eos % (Auto) 2.9 Baso % (Auto) 0.4 Lymph # (Auto) 2.3 [place] # (Auto) 1.0 Eos # (Auto) 0.4 Baso # (Auto) 0.1 Abs Immat Gran (auto) 0.04 H Absolute Neuts (auto) 8.2 Absolute Nucleated RBC 0.000 Nucleated RBC % (auto) 0.0 Smear Tech's Comments PT 16.0 H INR 1.3 H APTT Sodium 138 Potassium 4.2 Chloride 104 Carbon Dioxide 23 Anion Gap 15 BUN 11 Creatinine 0.85 Estim Creat Clear Calc 43.0 Estimated GFR > 60 Random Glucose 112 Calcium 8.9 D Total Bilirubin AST ALT Alkaline Phosphatase Troponin I High Sens Total Protein Albumin Urine Color Urine Appearance Urine pH Ur Specific Wend[place] Urine Protein Urine Glucose (UA) Urine Ketones Urine Blood Urine Nitrite Ur Leukocyte Esterase Urine RBC Urine WBC Ur Squamous Epith Cells Ur Renal Epithelial Cell Urine Bacteria COVID-19 (JAMES) COVID-[facility] Clin Com Blood Type Antibody Screen 06/23/20 06/25/20 06/25/20 15:32 09:21 09:21 WBC Cancelled RBC Cancelled Hgb Cancelled Hct Cancelled MCV Cancelled MCH Cancelled MCHC Cancelled RDW Cancelled Plt Count Cancelled MPV Cancelled Immature Gran % (Auto) Cancelled Neut % (Auto) Cancelled Lymph % (Auto) Cancelled [place] % (Auto) Cancelled Eos % (Auto) Cancelled Baso % (Auto) Cancelled Lymph # (Auto) Cancelled [place] # (Auto) Cancelled Eos # (Auto) Cancelled Baso # (Auto) Cancelled Abs Immat Gran (auto) Cancelled Absolute Neuts (auto) Cancelled Absolute Nucleated RBC Cancelled Nucleated RBC % (auto) Cancelled Smear Tech's Comments PT INR APTT Sodium 135 Potassium 4.2 Chloride 100 Carbon Dioxide 27 Anion Gap 12 BUN 11 Creatinine 0.74 Estim Creat Clear Calc 49.4 Estimated GFR > 60 Random Glucose 107 Calcium 8.3 L D Total Bilirubin AST ALT Alkaline Phosphatase Troponin I High Sens Total Protein Albumin Urine Color Urine Appearance Urine pH Ur Specific [place] Urine Protein Urine Glucose (UA) Urine Ketones Urine Blood Urine Nitrite Ur Leukocyte Esterase Urine RBC Urine WBC Ur Squamous Epith Cells Ur Renal Epithelial Cell Urine Bacteria COVID-19 (JAMES) COVID-19 [facility] Com Blood Type A Positive Antibody Screen NEGATIVE 06/25/20 06/26/20 06/26/20 09:21 06:03 06:03 WBC 14.1 H Cancelled RBC 3.59 L Cancelled Hgb 10.7 L Cancelled Hct 33.2 L Cancelled MCV 92.5 Cancelled MCH 29.8 Cancelled MCHC 32.2 Cancelled RDW 13.0 Cancelled Plt Count 195 Cancelled MPV 10.7 Cancelled Immature Gran % (Auto) 0.3 Cancelled Neut % (Auto) 60.0 Cancelled Lymph % (Auto) 23.9 Cancelled [place] % (Auto) 15.3 H Cancelled Eos % (Auto) 0.4 Cancelled Baso % (Auto) 0.1 Cancelled Lymph # (Auto) 3.4 Cancelled [place] # (Auto) 2.2 H Cancelled Eos # (Auto) 0.1 Cancelled Baso # (Auto) 0.0 Cancelled Abs Immat Gran (auto) 0.04 H Cancelled Absolute Neuts (auto) 8.5 H Cancelled Absolute Nucleated RBC 0.000 Cancelled Nucleated RBC % (auto) 0.0 Cancelled Smear Tech's Comments VERIFIED PT 19.8 H D INR 1.7 H APTT Sodium Potassium Chloride Carbon Dioxide Anion Gap BUN Creatinine Estim Creat Clear Calc Estimated GFR Random Glucose Calcium Total Bilirubin AST ALT Alkaline Phosphatase Troponin I High Sens Total Protein Albumin Urine Color Urine Appearance Urine pH Ur Specific [place] Urine Protein Urine Glucose (UA) Urine Ketones Urine Blood Urine Nitrite Ur Leukocyte Esterase Urine RBC Urine WBC Ur Squamous Epith Cells Ur Renal Epithelial Cell Urine Bacteria COVID-19 (JAMES) COVID-19 Clin Com Blood Type Antibody Screen 06/26/20 06/26/20 06:03 06:03 WBC 14.1 H RBC 3.67 L Hgb 10.9 L Hct 33.3 L MCV 90.7 MCH 29.7 MCHC 32.7 RDW 12.7 Plt Count 211 MPV 10.8 Immature Gran % (Auto) 0.4 Neut % (Auto) 66.7 Lymph % (Auto) 18.5 L [place] % (Auto) 14.1 H Eos % (Auto) 0.1 Baso % (Auto) 0.2 Lymph # (Auto) 2.6 [place] # (Auto) 2.0 H Eos # (Auto) 0.0 Baso # (Auto) 0.0 Abs Immat Gran (auto) 0.06 H Absolute Neuts (auto) 9.4 H Absolute Nucleated RBC 0.000 Nucleated RBC % (auto) 0.0 Smear Tech's Comments VERIFIED PT INR APTT Sodium 133 L Potassium 4.0 Chloride 98 Carbon Dioxide 25 Anion Gap 14 BUN 13 Creatinine 0.75 Estim Creat Clear Calc 48.7 Estimated GFR > 60 Random Glucose 122 H Calcium 8.3 L Total Bilirubin AST ALT Alkaline Phosphatase Troponin I High Sens Total Protein Albumin Urine Color Urine Appearance Urine pH Ur Specific [place] Urine Protein Urine Glucose (UA) Urine Ketones Urine Blood Urine Nitrite Ur Leukocyte Esterase Urine RBC Urine WBC Ur Squamous Epith Cells Ur Renal Epithelial Cell Urine Bacteria COVID-19 (JAMES) COVID-19 Clin Com Blood Type Antibody Screen Discharge Plan Discharge Anticipated Discharge Date/Time: 06/26/20 09:30 Patient Disposition: Xfer SNF [facility]: [facility] [Outside] (PATIENT TO TRANSFER TO [facility] FOR SHORT TERM REHAB. [facility] TO TRANSPORT.) Physician,Unknown [Primary Care Provider] - Discharge Medications: New oxycodone 5 mg Tablet 5 mg PO Q4H PRN (Reason: Pain, Severe (Pain Scale 7-10)) Qty: 20 RF: 0 docusate sodium 100 mg Capsule 100 mg PO DAILY PRN (Reason: Constipation) 30 Days RF: 0 Continued warfarin [Jantoven] 5 mg Tablet 5 mg PO DAILY RF: 0 meclizine 25 mg Tablet 25 mg PO DAILY RF: 0 albuterol sulfate 90 mcg/actuation Hfa Aerosol Inhaler 2 puff INHALATION Q4H PRN (Reason: Shortness Of Breath) RF: 0 metoprolol tartrate 25 mg tablet 1 tab PO BID RF: 0 Discharge Orders: Discharge Order (Routine); Ordered 06/26/20 Ordered By: Rober Gilliland Diet: advance to usual diet Activity on Discharge: As tolerated Activity Restrictions/Additional Instructions: Physical Therapy for jing hip arthroplasty: no precautions, gait training, ROM, strength Limit stair climbing No showering, no tub bath-keep dressing clean, dry and intact No driving x6 weeks Continue dvt ppx Follow up with [facility] in 2 weeks Visit Report Forms: Patient Portal Discharge page Care Plan Goals: Full recovery from hip fracture. Health Concerns: Hip fracture and pulmonary embolism history Plan of Treatment: To participate in rehab at short term rehab Discharge Date/Time: 06/26/20 14:25
--- NOTE | 2020-06-26 09:38 | MHC.CM.PN ---
DAUGHTER LIZ ([phone]) AGREEABLE TO [facility] REFERRALS, AND ASKS FOR [facility]. IF [facility] IS UNABLE TO OFFER, SHE REQUESTS A REFERRAL TO THE [facility]. CASE MANAGEMENT FOLLOWING. SECOND COVID SWAB ORDERED.
[2020-06-26 11:05] LABS: COVID-19 Test Negative (Negative)
--- NOTE | 2020-06-26 11:40 | MHC.CM.PN ---
PATIENT TO TRANSFER TO [facility] [place] FOR 13:30 VIA [facility]. DAUGHTER LIZ ([phone]), RN, AND UNIT AWARE OF PLAN.
[2020-06-26 12:11] VITALS: BP 172/79; PULSE 93; RESP 19; TEMP 37.2; O2SAT 97
[2020-06-26] MEDS: Enoxaparin Sodium 40 MG/0.4 ML SYRINGE SUBCUT (12:17)
--- NOTE | 2020-06-26 13:23 | MHC.CM.PN ---
PER CONVERSATION WITH ID, NO CHANGE OF ANTIBIOTIC SCHEDULE ANTICIPATED. PATIENT WILL FINISH HIS IV ABX ON 07/05/20.
== END 2020-06-26 14:25 | disposition skilled nursing facility (03) | DRG 522 ==
LOC: HO.ED 21:04 → HO.S3 06-23 06:58
PROVIDERS: Nurse Practitioner Primary Care; Orthopaedic Surgery; Physician Assistant; Physician Assistant Medical; Admitting Provider Internal Medicine; Emergency Provider Internal Medicine; PCP Internal Medicine; Visit Provider Internal Medicine
PROC: 0SRR0JA Replacement of Right Hip Joint, Femoral Surface with Synthetic Substitute, Uncemented, Open Approach (ICD-10-PCS; CPT 27125; principal; 2020-06-24 10:00)
DX: S72.011A Unspecified intracapsular fracture of right femur, initial encounter for closed fracture (principal); F41.9 Anxiety disorder, unspecified; K21.9 Gastro-esophageal reflux disease without esophagitis; J44.9 Chronic obstructive pulmonary disease, unspecified; W01.0XXA Fall on same level from slipping, tripping and stumbling without subsequent striking against object, initial encounter; Y93.9 Activity, unspecified; Y92.009 Unspecified place in unspecified non-institutional (private) residence as the place of occurrence of the external cause; Y99.9 Unspecified external cause status; I10 Essential (primary) hypertension; Z86.711 Personal history of pulmonary embolism; Z20.828 Contact with and (suspected) exposure to other viral communicable diseases; Z79.51 Long term (current) use of inhaled steroids; Z79.01 Long term (current) use of anticoagulants; Z79.899 Other long term (current) drug therapy
CPT/HCPCS: 36415; 70450; 71045; 73502; 73560; 80048; 80053; 81001; 84484; 85025; 85027; 85610; 85730; 86850; 86900; 86901; 87635; 88305; 88311; 93005; 96361; 96374; 96375; 97162; 97166; 99285; C1776; J0131; J0690; J1100; J1170; J1650; J2270; J2405; J3010

== ENCOUNTER → 2020-07-05 13:35 | Outpatient (BNVA) | payer MEDICARE, SELFPAY | PROVIDERS: PCP Physician Assistant; Visit Provider Physician Assistant | DX: Z96.641 Presence of right artificial hip joint (principal) | CPT/HCPCS: 99212 ==

== ENCOUNTER → 2020-07-27 10:25 | Outpatient (BNVA) | payer MEDICARE, SELFPAY | PROVIDERS: PCP Internal Medicine; Visit Provider Internal Medicine | DX: I26.99 Other pulmonary embolism without acute cor pulmonale (principal); Z51.81 Encounter for therapeutic drug level monitoring; Z79.01 Long term (current) use of anticoagulants | CPT/HCPCS: 85610; 99211 ==

== ENCOUNTER → 2020-08-01 11:44 | Outpatient (BNVA) | payer MEDICARE, SELFPAY | PROVIDERS: PCP Internal Medicine; Visit Provider Internal Medicine | DX: I26.99 Other pulmonary embolism without acute cor pulmonale (principal); Z51.81 Encounter for therapeutic drug level monitoring; Z79.01 Long term (current) use of anticoagulants | CPT/HCPCS: Q3014 ==

== ENCOUNTER 2020-08-02 11:57 | Outpatient (REF) | payer MEDICARE, SELFPAY | END 2020-08-02 11:58 | disposition home or self-care (01) | LOC: HO.HOSX 11:57 | PROVIDERS: Visit Provider Physician Assistant | DX: Z13.89 Encounter for screening for other disorder (principal) ==

== ENCOUNTER → 2020-08-03 14:00 | Outpatient (BNVA) | payer MEDICARE, SELFPAY | PROVIDERS: PCP Internal Medicine; Visit Provider Internal Medicine | DX: I26.99 Other pulmonary embolism without acute cor pulmonale (principal); Z51.81 Encounter for therapeutic drug level monitoring; Z79.01 Long term (current) use of anticoagulants | CPT/HCPCS: Q3014 ==

== ENCOUNTER → 2020-08-08 12:00 | Outpatient (BNVA) | payer MEDICARE, SELFPAY | PROVIDERS: PCP Internal Medicine; Visit Provider Internal Medicine | DX: I26.99 Other pulmonary embolism without acute cor pulmonale (principal); Z51.81 Encounter for therapeutic drug level monitoring; Z79.01 Long term (current) use of anticoagulants | CPT/HCPCS: Q3014 ==

== ENCOUNTER → 2020-08-11 14:57 | Outpatient (BNVA) | payer MEDICARE, SELFPAY | PROVIDERS: PCP Internal Medicine; Visit Provider Internal Medicine | DX: I26.99 Other pulmonary embolism without acute cor pulmonale (principal); Z51.81 Encounter for therapeutic drug level monitoring; Z79.01 Long term (current) use of anticoagulants | CPT/HCPCS: Q3014 ==

== ENCOUNTER → 2020-08-15 11:51 | Outpatient (BNVA) | payer MEDICARE, SELFPAY | PROVIDERS: PCP Internal Medicine; Visit Provider Internal Medicine | DX: I26.99 Other pulmonary embolism without acute cor pulmonale (principal); Z51.81 Encounter for therapeutic drug level monitoring; Z79.01 Long term (current) use of anticoagulants | CPT/HCPCS: Q3014 ==

== ENCOUNTER → 2020-08-24 13:50 | Outpatient (BNVA) | payer MEDICARE, SELFPAY | PROVIDERS: PCP Internal Medicine; Visit Provider Internal Medicine | DX: I26.99 Other pulmonary embolism without acute cor pulmonale (principal); Z51.81 Encounter for therapeutic drug level monitoring; Z79.01 Long term (current) use of anticoagulants | CPT/HCPCS: Q3014 ==

== ENCOUNTER → 2020-08-31 12:59 | Outpatient (BNVA) | payer MEDICARE, SELFPAY | PROVIDERS: PCP Internal Medicine; Visit Provider Internal Medicine | DX: I26.99 Other pulmonary embolism without acute cor pulmonale (principal); Z51.81 Encounter for therapeutic drug level monitoring; Z79.01 Long term (current) use of anticoagulants | CPT/HCPCS: Q3014 ==

== ENCOUNTER → 2020-09-07 11:53 | Outpatient (BNVA) | payer MEDICARE, SELFPAY | PROVIDERS: PCP Internal Medicine; Visit Provider Internal Medicine | DX: I26.99 Other pulmonary embolism without acute cor pulmonale (principal); Z51.81 Encounter for therapeutic drug level monitoring; Z79.01 Long term (current) use of anticoagulants | CPT/HCPCS: Q3014 ==

== ENCOUNTER → 2020-09-14 14:38 | Outpatient (BNVA) | payer MEDICARE, SELFPAY | PROVIDERS: PCP Internal Medicine; Visit Provider Internal Medicine | DX: I26.99 Other pulmonary embolism without acute cor pulmonale (principal); Z79.01 Long term (current) use of anticoagulants; Z51.81 Encounter for therapeutic drug level monitoring | CPT/HCPCS: Q3014 ==

== ENCOUNTER → 2020-10-09 11:26 | Outpatient (BNVA) | payer MEDICARE, SELFPAY | PROVIDERS: PCP Internal Medicine; Visit Provider Internal Medicine | DX: I26.99 Other pulmonary embolism without acute cor pulmonale (principal); Z79.01 Long term (current) use of anticoagulants; Z51.81 Encounter for therapeutic drug level monitoring | CPT/HCPCS: 85610; 99211 ==

== ENCOUNTER → 2020-10-18 10:34 | Outpatient (BNVA) | payer MEDICARE, SELFPAY | PROVIDERS: PCP Internal Medicine; Visit Provider Internal Medicine | DX: I26.99 Other pulmonary embolism without acute cor pulmonale (principal); Z51.81 Encounter for therapeutic drug level monitoring; Z79.01 Long term (current) use of anticoagulants | CPT/HCPCS: 85610; 99211 ==

== ENCOUNTER → 2020-11-01 10:23 | Outpatient (BNVA) | payer MEDICARE, SELFPAY | PROVIDERS: PCP Internal Medicine; Visit Provider Internal Medicine | DX: I26.99 Other pulmonary embolism without acute cor pulmonale (principal); Z51.81 Encounter for therapeutic drug level monitoring; Z79.01 Long term (current) use of anticoagulants | CPT/HCPCS: 85610; 99211 ==

== ENCOUNTER 2020-11-21 10:09 | Outpatient (REF) | payer MEDICARE, SELFPAY ==
--- NOTE | ~2020-11-21 | XR_ITS ---
EXAMINATION: XR HIP, RIGHT XR KNEE, RIGHT XR KNEE, LEFT XR FOOT, RIGHT XR FOOT, LEFT CLINICAL INFORMATION: Right hip arthroplasty. Bilateral knee osteoarthritis. Bilateral foot pain. COMPARISON: Right hip and right knee radiographs dated 06/22/2020. Left knee radiographs dated 01/18/2016. Right ankle radiographs dated 04/03/2016. TECHNIQUE: AP and frog-leg lateral views of the right hip. AP and lateral views of the right and left knee. AP, oblique, and lateral views of the right and left foot. FINDINGS: RIGHT HIP: Interval right hip arthroplasty. No acute hardware or osseous fracture. No perihardware lucency to suggest loosening or infection. No abnormal soft tissue calcification. RIGHT KNEE: No acute fracture or dislocation. Small tricompartmental marginal osteophytes. Subchondral cystic change within the medial femoral condyle, similar when compared to the prior examination. Posterior medial loose body measuring 0.3 cm, unchanged. Mild medial and lateral compartment chondrocalcinosis. No significant joint effusion. Metallic fragments redemonstrated within the superior aspect of the lower leg, unchanged. LEFT KNEE: No acute fracture or dislocation. Moderate medial compartment joint space narrowing. Small tricompartmental marginal osteophytes. No osseous erosion. No abnormal soft tissue calcification. No significant joint effusion. RIGHT FOOT: Partially visualized orthopedic screws redemonstrated within the medial and lateral malleoli. No evidence of hardware complication. No acute fracture or dislocation. Chronic, incompletely fused fracture at the base of the 5th metatarsal. Moderate to severe joint space narrowing with subchondral cystic change and marginal osteophytes at the 1st metatarsophalangeal joint. Small plantar and dorsal calcaneal spurs. LEFT FOOT: No acute fracture or dislocation. No significant joint space narrowing or marginal osteophytes. No osseous erosion. Small plantar and dorsal calcaneal spurs. XR/XR foot LT min 3V IMPRESSION: Right hip: Right hip arthroplasty without evidence of hardware complication. Right knee: Mild tricompartmental osteoarthritis, unchanged. Posterior loose body, unchanged. Medial and lateral compartment chondrocalcinosis. Left knee: Moderate to severe medial as well as mild patellofemoral and lateral compartment osteoarthritis. Right foot: No acute osseous abnormality. Remote, incompletely fused fracture at the base of the 5th metatarsal. Moderate to severe 1st metatarsophalangeal joint osteoarthritis. Medial and lateral malleolar orthopedic screws without evidence of hardware complication. Left foot: No acute osseous abnormality.
[2020-11-21 12:01] LABS: MANUAL DIFF FLAG NO
[2020-11-21 12:10] LABS: Basophils Absolute Auto 0.1 X10*3/uL (0.0-0.2); Basophils Percent Auto 0.5 % (0-2); Eosinophils Absolute Auto 0.3 X10*3/uL (0.0-0.4); Eosinophils Percent Auto 3.6 % (0-4); Hematocrit 41.4 % (37-47); Hemoglobin 12.7 g/dl (12.0-16.0); Imm Gran Abs Auto 0.03 X10*3/uL (0.00-0.03); Imm Gran Pct Auto 0.3 % (0.0-0.4); Lymphocytes Absolute Auto 3.1 X10*3/uL (1.2-4.9); Lymphocytes Percent Auto 32.1 % (20-40); Mean Corpuscular HGB Conc 30.7 g/dl (31.0-35.0); Mean Corpuscular Hemoglobin 27.4 pg (27.0-33.0); Mean Corpuscular Volume 89.2 fL (80-98); Mean Platelet Volume 10.9 fL (9.4-12.3); Monocytes Absolute Auto 0.9 X10*3/uL (0.1-1.2); Monocytes Percent Auto 9.2 % (2-11); Neutrophils Absolute Auto 5.2 X10*3/uL (2.0-8.3); Neutrophils Percent Auto 54.3 % (45-73); Platelet Count 268 X10*3/uL (160-400); Red Blood Count 4.64 X10*6/uL (4.20-5.50); Red Cell Distribution Width 14.6 % (11.0-16.0); Retic HGB Equivalent 31.5 pg (30.0-35.0); Reticulocytes Absolute 0.047 X10*6/uL (0.026-0.095); White Blood Count 9.5 X10*3/uL (4.8-10.8)
[2020-11-21 12:11] LABS: INTERNATIONAL NORM RATIO 1.7 (0.9-1.1); Prothrombin Time 20.8 SEC (10.8-13.0)
[2020-11-21 12:45] LABS: Ferritin 49 ng/mL (10-250); Free T4 (Free Thyroxine) 0.87 ng/dL (0.71-1.85); Thyroid Stimulating Hormone 1.05 uIU/mL (0.32-4.0); Vitamin D 25-OH Total 21.1 ng/mL (>30)
[2020-11-21 13:03] LABS: Folate 6.1 ng/mL (> or = 4.0); Vitamin B12 263 pg/mL (200-900)
[2020-11-21 13:18] LABS: Alanine Aminotransferase < 6 U/L (0-31); Alkaline Phosphatase 83 U/L (39-117); Anion Gap 11 (12-20); Aspartate Amino Transferase 16 U/L (5-31); Bilirubin Direct < 0.2 mg/dL (0.0-0.5); Bilirubin Total 0.5 mg/dL (0.0-1.0); Blood Urea Nitrogen 14 mg/dL (9-16); Calcium 9.4 mg/dL (8.4-10.2); Carbon Dioxide 27 mmol/L (22-29); Chloride 106 mmol/L (96-108); Estimated Glomerular Filt Rate 59; Glucose Random 81 mg/dL (60-115); Iron 62 mcg/dL (30-160); Percent Iron Saturation 20 % (15-50); Potassium 4.6 mmol/L (3.3-5.1); Sodium 139 mmol/L (135-145); Total Iron Binding Capacity 305 mcg/dL (228-428); Unsaturated Iron Binding 243 ug/dL
== END 2020-11-21 10:10 | disposition home or self-care (01) ==
LOC: HO.LAB 10:09
PROVIDERS: Absent Provider Internal Medicine; PCP Internal Medicine; Visit Provider Internal Medicine
DX: Z86.711 Personal history of pulmonary embolism (principal); Z51.81 Encounter for therapeutic drug level monitoring; Z79.01 Long term (current) use of anticoagulants; M17.0 Bilateral primary osteoarthritis of knee; M79.672 Pain in left foot; M79.671 Pain in right foot; R79.89 Other specified abnormal findings of blood chemistry; E78.00 Pure hypercholesterolemia, unspecified; D64.9 Anemia, unspecified; Z96.641 Presence of right artificial hip joint
CPT/HCPCS: 36415; 73502; 73560; 73630; 80053; 80076; 82248; 82306; 82607; 82728; 82746; 83540; 84439; 84443; 85025; 85045; 85610; 99211

== ENCOUNTER → 2020-12-13 10:37 | Outpatient (BNVA) | payer MEDICARE, SELFPAY | PROVIDERS: PCP Internal Medicine; Visit Provider Internal Medicine | DX: I26.99 Other pulmonary embolism without acute cor pulmonale (principal); Z51.81 Encounter for therapeutic drug level monitoring; Z79.01 Long term (current) use of anticoagulants | CPT/HCPCS: 85610; 99211 ==

== ENCOUNTER → 2020-12-21 10:16 | Outpatient (BNVA) | payer MEDICARE, SELFPAY | PROVIDERS: PCP Internal Medicine; Visit Provider Internal Medicine | DX: I26.99 Other pulmonary embolism without acute cor pulmonale (principal); Z51.81 Encounter for therapeutic drug level monitoring; Z79.01 Long term (current) use of anticoagulants | CPT/HCPCS: 85610; 99211 ==

== ENCOUNTER 2021-05-29 13:54 | Emergency (ER) | payer MEDICARE, SELFPAY ==
--- NOTE | ~2021-05-29 | XR_ITS ---
EXAMINATION: XR CHEST CLINICAL INFORMATION: Cough. COMPARISON: Chest radiograph done on 06/22/2020. TECHNIQUE: Frontal view of the chest was obtained. FINDINGS: No radiographic evidence of any dense airspace consolidation seen on either side. Prominent bronchovascular markings are noted bilaterally, unchanged. Postsurgical changes are noted at left lung base. No evidence of any pleural effusion or pneumothorax. The cardiac mediastinal silhouette is within normal limit. Both vertebral augmentation-related changes are noted at lower thoracic spine. Overall, no significant change. XR/XR chest 1V IMPRESSION: No radiographic evidence of pneumonia.
[2021-05-29 14:02] VITALS: BP 143/80; PULSE 94; O2SAT 100
[2021-05-29 14:14] VITALS: BMI 25.2
--- NOTE | 2021-05-29 14:22 | ED_ITS ---
HPI - Asthma General Chief Complaint: Asthma Stated Complaint: SOB,MILD ASTHMA PER EMS Time Seen by Provider: 05/29/21 14:09 Source: patient and EMS Mode of arrival: EMS Limitations: no limitations History of Present Illness HPI Narrative: Patient comes to the emergency room complaining of an asthma exacerbation. Patient states it was mild, patient called the ambulance because she lost her inhaler. When EMS arrived, oxygen saturation was above 95% on room air, but give her 1 dose of tuna, no steroids. By the time the patient arrived to emergency room, she was asymptomatic. It was noted the patient is coughing, patient states it has been going on for 1 week. Patient denies chest pain or shortness of breath. Related Data Home Medications Medication Instructions Recorded Confirmed acetaminophen 650 mg 650 mg PO Q8H PRN 05/23/20 04/24/21 tablet,extended release (Tylenol Arthritis Pain) fluticasone 500 mcg-salmeterol 50 1 inh INHALATION BID 05/23/20 04/24/21 mcg/dose blistr powdr for inhalation (Advair Diskus) Previous Rx's Medication Instructions Recorded docusate sodium 100 mg capsule 100 mg PO DAILY PRN 30 Days #90 cap 08/01/20 Hospital bed with air mattress #1 ea 08/02/20 hospiptal bed #1 ea 08/18/20 diclofenac sodium 1 % topical gel 4 g TOPICAL QID #3 tube 11/17/20 (Voltaren) famotidine 20 mg tablet 20 mg PO BID #60 tab 11/17/20 hydrocortisone 2.5 % topical cream 1 appl AL BID-QID PRN #30 g 11/17/20 with perineal applicator (Proctosol HC) warfarin 5 mg tablet (Jantoven) 5 mg PO DAILY 90 Days #90 cap 12/12/20 albuterol sulfate 90 mcg/actuation 2 puff INHALATION Q4H PRN #8.5 g 12/29/20 aerosol inhaler metoprolol tartrate 25 mg tablet 25 mg PO BID #180 tab 02/02/21 tramadol 50 mg tablet 50 mg PO TID PRN 30 Days #90 tab 02/16/21 meclizine 25 mg tablet 25 mg PO DAILY #90 cap 04/16/21 lidocaine 4 % topical patch 3 patch TOPICAL DAILY 7 Days #30 ea 11/09/21 (Aspercreme (lidocaine)) albuterol sulfate 90 mcg/actuation 2 puff INHALATION Q4-6H PRN #8.5 g 05/29/21 aerosol inhaler prednisone 50 mg tablet 50 mg PO DAILY #4 tab 05/29/21 Allergies Allergy/AdvReac Type Severity Reaction Status Date / Time albuterol [Ventolin HFA] Allergy Unknown palpitation Verified 04/24/21 10:20 s Review of Systems Review of Systems: Constitutional : No Weight loss, No Fever, No Chills, No Night Sweats, No Fatigue, No Malaise ENT/Mouth : No Hearing loss, No Ear Pain, No Nasal Congestion, No Sinus Pain, No Hoarseness, No sore throat, No Rhinorrhea, No Swallowing Difficulty Eyes: No Eye Pain, No Swelling, No Redness, No Foreign Body, No Discharge, No Vision Changes Cardiovascular : No Chest Pain, No SOB, No Dyspnea on Exertion, No Orthopnea, No Edema, No Palpitations Respiratory : Complaining of productive cough, wheezing, No Dyspnea Gastrointestinal : No Nausea, No Vomiting, No Diarrhea, No Constipation, No abdominal Pain, No Hematochezia, No Melena Genitourinary : no irregular bleeding, No Dysuria, No Urinary Frequency, No Hematuria, No Urinary Incontinence, No Urgency, No Flank Pain, No Urinary Flow Changes, No Hesitancy Musculoskeletal : No joint pain, No Myalgias, No Joint Swelling Skin : No Skin Lesions, No rash Neuro : No Weakness, No Numbness, No Paresthesias, No Loss of Consciousness, No Dizziness, No Headache Psych : No Anxiety/Panic, No Depression, No SI/HI/AH/VH, No Social Issues, Heme/Lymph: No Bruising, No Bleeding,No Lymphadenopathy Endocrine : No Polyuria, No Polydipsia, No Temperature Intolerance [facility] Past Medical History Medical History Anxiety BPV (benign positional vertigo) Compression fracture of L1 lumbar vertebra COPD (chronic obstructive pulmonary disease) Diverticular disease GERD (gastroesophageal reflux disease) History of lung cancer History of pulmonary embolism Hypercholesterolemia Hypertension Knee osteoarthritis Low vitamin D level Surgical History History of ankle surgery History of cataract surgery History of hip replacement History of lobectomy of lung History of surgery Family History Family History (Updated 04/24/21 @ 10:15 by KITA Polo) Father Medical history unknown Mother Medical history unknown Son No problems noted. Daughter No problems noted. Social History Social History (Updated 04/24/21 @ 10:15 by KITA Polo) Household Members: Family Housing: Unknown / Unable to assess Alcohol intake: never Patient Tobacco Use Status: Former Tobacco user (20 years ) Quit Date: 20 years ago e-Cigarette/Vaping Use: Never Used Second Hand Smoke Exposure: No Advance Directives: Yes Advance Directives on File: Yes Advance Directives Date on File: 06/22/20 service: No Current occupational status: retired Cognitive needs: No Hearing needs: No Vision needs: Yes (Glasses) Physical Exam Vital Signs: Vital Signs: Last Vital Signs Pulse 93 05/29/21 14:28 Resp 18 05/29/21 14:28 BMI result Body Mass Index 25.2 Const: Other: Appearance: Alert. Oriented X3. No acute distress. Eyes: Pupils equal, round and reactive to light. ENT: Pharynx normal. Neck: Normal inspection. Neck supple. No lymph nodes noted. No crepitus CVS: Normal heart rate and rhythm. Pulses normal. Normal S1 and S2 Respiratory: No respiratory distress. Mild bilateral wheezing, good air movement bilaterally Abdomen: Soft and nontender. No rigidity. No distention. good BS x4 Skin: Skin warm and dry. Normal skin color. Normal skin turgor. Extremities: No lower extremity edema. No Lacerations. No Rash Neuro: Oriented X 3. No motor deficit. No sensory deficit. Moving all extermities. No slurred speech. Course Course Course Narrative: Patient received p.o. prednisone and 1 dose albuterol. Patient giving a script for albuterol since she lost her albuterol pump MDM - Asthma Imaging Data Chest x-ray: Radiologist's impression: No radiographic evidence of any dense airspace consolidation seen on either side. Prominent bronchovascular markings are noted bilaterally, unchanged. Postsurgical changes are noted at left lung base. No evidence of any pleural effusion or pneumothorax. The cardiac mediastinal silhouette is within normal limit. Both vertebral augmentation-related changes are noted at lower thoracic spine. Overall, no significant change. XR/XR chest 1V IMPRESSION: No radiographic evidence of pneumonia. Discharge Plan Discharge Clinical Impression: Asthma Patient Disposition: Home, Self-Care Instructions: Asthma (ED) Additional Instructions: Please follow-up with your primary care physician tomorrow. If you have any worsening or new symptoms, please return to the emergency room or call 911 Prescriptions: New albuterol sulfate 90 mcg/actuation HFA aerosol inhaler 2 puff inhalation Q4-6H PRN (Reason: shortness of breath or wheezing) Qty: 8.5 RF: 0 prednisone 50 mg tablet 50 mg PO DAILY Qty: 4 RF: 0 No Action docusate sodium 100 mg capsule 100 mg PO DAILY PRN (Reason: Constipation) 30 Days Qty: 90 RF: 3 (DME) Hospital bed with air mattress See Rx Instructions .Route .MEDSUPPLY Qty: 1 RF: 0 warfarin [Jantoven] 5 mg tablet 5 mg PO DAILY 90 Days Qty: 90 RF: 3 albuterol sulfate 90 mcg/actuation HFA aerosol inhaler 2 puff INHALATION Q4H PRN (Reason: Shortness Of Breath) Qty: 8.5 RF: 0 metoprolol tartrate 25 mg tablet 25 mg PO BID Qty: 180 RF: 2 tramadol 50 mg tablet 50 mg PO TID PRN (Reason: pain) 30 Days Qty: 90 RF: 2 meclizine 25 mg tablet 25 mg PO DAILY Qty: 90 RF: 2 acetaminophen [Tylenol Arthritis Pain] 650 mg tablet extended release 650 mg PO Q8H PRN (Reason: Pain (Scale Score 1-3)) RF: 0 fluticasone propion-salmeterol [Advair Diskus] 500-50 mcg/dose blister with device 1 inh inhalation BID RF: 0 (DME) hospiptal bed See Rx Instructions .Route .MEDSUPPLY Qty: 1 RF: 0 hydrocortisone [Proctosol HC] 2.5 % cream with perineal applicator 1 appl AL BID-QID PRN (Reason: hemorrhoids) Qty: 30 RF: 0 diclofenac sodium [Voltaren] 1 % gel 4 g topical QID Qty: 3 RF: 0 famotidine 20 mg tablet 20 mg PO BID Qty: 60 RF: 2 lidocaine [Aspercreme (lidocaine HCl)] 4 % adhesive patch,medicated 3 patch topical DAILY 7 Days Qty: 30 RF: 0
[2021-05-29] MEDS: Albuterol Sulfate (0.083%) 2.5 MG/3 ML VIAL.NEB 5 MG INHALE (14:27)
[2021-05-29 14:28] VITALS: PULSE 93; RESP 18; O2SAT 98
[2021-05-29] MEDS: predniSONE 20 MG TABLET 60 MG PO (14:37)
[2021-05-29 16:07] VITALS: BP 130/72; PULSE 103; RESP 18; TEMP 36.9; O2SAT 97
== END 2021-05-29 16:18 | disposition home or self-care (01) ==
PROVIDERS: Emergency Provider Emergency Medicine; PCP Internal Medicine
DX: J45.909 Unspecified asthma, uncomplicated (principal); I10 Essential (primary) hypertension; Z85.118 Personal history of other malignant neoplasm of bronchus and lung; Z86.711 Personal history of pulmonary embolism; Z79.01 Long term (current) use of anticoagulants
CPT/HCPCS: 71045; 94640; 99283; 99284

== ENCOUNTER 2021-09-18 11:45 | Outpatient (REF) | payer OTHER, SELFPAY ==
[2021-09-18 12:45] LABS: INTERNATIONAL NORM RATIO 1.3 (0.9-1.1); Prothrombin Time 14.8 SEC (9.9-13.0)
[2021-09-18 13:20] LABS: Alanine Aminotransferase 7 U/L (0-31); Albumin Level 3.9 g/dL (3.5-5.0); Alkaline Phosphatase 84 U/L (39-117); Anion Gap 12 (12-20); Aspartate Amino Transferase 14 U/L (5-31); Bilirubin Total 0.3 mg/dL (0.0-1.0); Blood Urea Nitrogen 8 mg/dL (9-16); Calcium 9.3 mg/dL (8.4-10.2); Carbon Dioxide 25 mmol/L (22-29); Chloride 108 mmol/L (96-108); Estimated Glomerular Filt Rate > 60; Glucose Random 134 mg/dL (60-115); Potassium 4.3 mmol/L (3.3-5.1); Sodium 141 mmol/L (135-145); Total Protein 7.6 g/dL (6.5-8.0)
[2021-09-18 13:25] LABS: Thyroid Stimulating Hormone 1.37 uIU/mL (0.32-4.0)
[2021-09-18 14:15] LABS: Folate 3.8 ng/mL (> or = 4.0); Vitamin B12 181 pg/mL (200-900)
== END 2021-09-18 11:46 | disposition home or self-care (01) ==
LOC: HO.LAB 11:45
PROVIDERS: PCP Internal Medicine; Visit Provider Nurse Practitioner Acute Care
DX: I10 Essential (primary) hypertension (principal); D64.9 Anemia, unspecified; Z79.01 Long term (current) use of anticoagulants; Z86.711 Personal history of pulmonary embolism
CPT/HCPCS: 36415; 80053; 82607; 82746; 84443; 85610

== ENCOUNTER → 2021-11-09 10:01 | Outpatient (BNVA) | payer OTHER, SELFPAY | PROVIDERS: PCP Internal Medicine; Visit Provider Nurse Practitioner Family | DX: M51.36 Other intervertebral disc degeneration, lumbar region (principal); M25.561 Pain in right knee; M25.562 Pain in left knee; M47.27 Other spondylosis with radiculopathy, lumbosacral region; M79.18 Myalgia, other site; S32.010D Wedge compression fracture of first lumbar vertebra, subsequent encounter for fracture with routine healing | CPT/HCPCS: 99202 ==

== ENCOUNTER 2021-12-07 14:29 | Outpatient (REF) | payer OTHER, SELFPAY ==
--- NOTE | ~2021-12-07 | MR_ITS ---
EXAMINATION: MR LUMBAR SPINE WITHOUT CONTRAST CLINICAL INFORMATION: Spondylosis with radiculopathy patient reports low back pain with difficulty walking. COMPARISON: Multiple prior examinations including pre and post post L1 kyphoplasty lumbar sacral spine 05/07/2017 and lumbar sacral spine 11/25/2017. TECHNIQUE: MRI of the lumbar spine was obtained using routine sequences without contrast. FINDINGS: VERTEBRAL BODIES AND PARASPINAL STRUCTURES: Post kyphoplasty changes of L1 with low signal corresponding to the bone cement applied to the L1 vertebral body which is chronically compressed. No surrounding edema indicative of a healed fracture. Multilevel degenerative disc changes noted throughout the visualized dorsal and lumbar sacral spine with varying degrees of disc space narrowing and disc protrusion. There is some focal subtle edema in the superior endplate of L5 posteriorly which may reflect a subtle nondepressed fracture or reactive change related to degenerative disc disease at L4-5 The paraspinal musculature is unremarkable the apex of the right kidney centimeter mass compatible with a cyst. dCONUS MEDULLARIS AND CAUDA EQUINA: Conus terminates at the level of L2. Cauda equina unremarkable. SPINAL LEVELS: T12-L1: Mild generalized bulging of the disc. Facets unremarkable minimal if any narrowing the central canal and neural foramina. L1-L2: Disc desiccation and generalized bulging of the disc. There is a concomitant focal right central disc protrusion indenting on the anterior lateral thecal sac. Facets unremarkable. Overall findings result in localized narrowing of the right central canal and minimal narrowing of the neural foramina bilaterally L2-L3: Generalized bulging of the disc with moderate loss of disc height. Facets unremarkable. Findings result in minimal narrowing the central canal and mild narrowing of the neural foramina bilaterally L3-L4: Generalized bulging of the disc with moderate loss in disc height. Mild hypertrophic changes and ligamentum flavum and facets Degenerative changes result in mild narrowing of the central canal and [id number] narrowing the neural foramina bilaterally L4-L5: Generalized bulging of the disc. Hypertrophy of ligamentum flavum. 3 mm cyst in the posterior aspect of the central canal indenting on the posterior thecal sac likely communicating with the right facet Overall findings result in mild narrowing of the central canal and moderate narrowing of the neural foramina bilaterally L5-S1: Generalized bulging disc and loss of height. Hypertrophy of ligamentum flavum and mild facet arthrosis bilaterally. These degenerative changes result in mild central canal and moderate narrowing of the neural foramina bilaterally MR/MR lumbar spine wo con IMPRESSION: Postkyphoplasty changes at L1 with evidence of a healed compression fracture. Multilevel spondylosis throughout the lumbar sacral spine resulting in varying degrees of spinal narrowing as detailed above per disc level.
== END 2021-12-07 14:30 | disposition home or self-care (01) ==
LOC: HO.MRI 14:29
PROVIDERS: Visit Provider Nurse Practitioner Family
DX: M47.27 Other spondylosis with radiculopathy, lumbosacral region (principal); R29.898 Other symptoms and signs involving the musculoskeletal system
CPT/HCPCS: 72148

== ENCOUNTER 2021-12-20 12:09 | Emergency (ER) | payer OTHER, SELFPAY ==
--- NOTE | ~2021-12-20 | CT_ITS ---
EXAMINATION: CT CHEST, ABDOMEN AND PELVIS WITHOUT CONTRAST CLINICAL INFORMATION: Fall with chest pain and back and hip pain COMPARISON: CTA chest 07/01/2019, CT abdomen pelvis 12/03/2017 TECHNIQUE: Multidetector volumetric imaging was performed from the thoracic inlet through the pubic symphysis without IV contrast. Sagittal and coronal reformatted images were obtained on the technologist's workstation. This CT examination was performed using dose optimization techniques as appropriate, variously including the following: *Automated exposure control *Adjustment of mA and/or kV according to patient size (this includes techniques or standardized protocols for targeted exams where dose is matched to indication/reason for exam; i.e. extremities or head) *Use of iterative reconstruction technique DLP: 555 mGy-cm FINDINGS: CHEST: Lung: There are underlying marked changes of severe COPD as well as a suture line in the lingula from prior resection. Some [id number]-qk-[id number]-type densities seen in the right upper lobe laterally, unchanged (29:148). There is a new spiculated mass seen in the left upper lobe measuring 1.2 x 0.8 x 1.4 cm (29:112). A 4 mm perifissural nodule in the right middle lobe abutting the minor fissure is unchanged again (29:208) Some new small pulmonary nodular densities are seen includin mm right upper lobe nodule (29:175) 2 mm left lower lobe nodule (29:192) 3 mm right middle lobe nodule (29:215 Mediastinum: The mediastinum is unremarkable. The central vascular structures are unremarkable. No hilar or mediastinal lymphadenopathy. Pericardium/Pleura: No significant effusion. No pleural mass or thickening. Chest Wall/Axilla: Unremarkable ABDOMEN/PELVIS: Peritoneal Space: No significant free air or free fluid identified. Liver, Gallbladder, Biliary Tree: The liver is normal in size, shape, and attenuation. No focal hepatic lesion or biliary ductal dilatation is present. The gallbladder is unremarkable with no evidence of radiopaque gallstones, gallbladder wall thickening, or obvious pericholecystic inflammatory changes. Pancreas: Unremarkable Spleen: Unremarkable Adrenal Glands: Unremarkable Kidneys and Ureters: The kidneys are normal in size, shape, and attenuation. A Bosniak class I cyst present in the upper pole the right kidney is unchanged and needs no further imaging or follow-up. No suspicious solid renal masses are seen . Calcifications in the kidneys are vascular with no, nephrolithiasis, hydronephrosis or hydroureter. No perinephric stranding. Bladder: Unremarkable Gastrointestinal Tract: A small hiatal hernia is present. The small and large bowel are unremarkable aside from colonic diverticular changes without diverticulitis.. The appendix is not visualized. Abdominal Wall: No significant hernia is appreciated. Lymph Nodes: No lymphadenopathy. Vascular: Severe atherosclerotic changes with calcification noted in the abdominal aorta and iliofemoral vessels. I suspect the presence of a tight right common iliac stenosis as at least at one level, a large amount of calcification fills the lumen (33:38). The IVC appears unremarkable. PELVIC VISCERA: Unremarkable OSSEUS STRUCTURES: Right hip prosthesis present degenerative changes present throughout the spine. Prior kyphoplasty L1. No bony destructive lesions are seen or acute fractures from the patient's trauma. CT/CT abdomen pelvis wo con IMPRESSION: 1. New spiculated 1.2 cm left upper lobe lung mass suspicious for malignancy. 2. No evidence of a traumatic injury in the chest abdomen or pelvis. 3. Incidental findings include severe COPD, small hiatal hernia, colonic diverticula, severe atherosclerotic disease with right common iliac stenosis and musculoskeletal changes as above. Fleischner guidelines were followed.
--- NOTE | ~2021-12-20 | CT_ITS ---
EXAMINATION: NONCONTRAST HEAD CT NONCONTRAST CERVICAL SPINE CT INDICATION INFORMATION: Fall, pain COMPARISON: 03/22/2021 TECHNIQUE: Separate noncontrast CT examinations of the head and cervical spine were performed. Coronal head CT images and coronal and sagittal cervical spine images were created at the technologist workstation. DLP: 1750 mGy-cm DOSE LOWERING TECHNIQUES: This CT examination was performed using dose optimization techniques as appropriate, variously including the following: - Automated exposure control - Adjustment of mA and/or kV according to patient size (this includes techniques or standardized protocols for targeted exams were dose is matched to indication/reason for exam; i.e. extremities or head) - Use of iterative reconstruction technique FINDINGS: Head: There is no evidence of acute intracranial hemorrhage or territorial infarction. No abnormal mass-effect or midline shift is seen. Faustin to white matter differentiation is well preserved. No extra-axial fluid collections are identified. The ventricles are normal in size. There is moderate periventricular white matter hypoattenuation consistent with chronic small vessel ischemic disease. Moderate volume loss is noted. The osseous structures and soft tissues are normal. The mastoid air cells and visualized portions of the paranasal sinuses are well-aerated. Cervical spine: There is anatomic alignment of the vertebral bodies and posterior elements. There is degenerative change at the atlantodens articulation. Vertebral body heights are maintained. There is multilevel disc space narrowing, most severe at C3-C4 and in the lower cervical spine with associated endplate osteophytes. There is moderate to severe bilateral facet arthropathy. No evidence of acute fracture. No prevertebral soft tissue swelling. Visualized portions of the lung apices demonstrate emphysema. The thyroid gland is unremarkable. CT/CT cervical spine wo con IMPRESSION: 1. Head: No acute intracranial findings. Chronic small vessel ischemic disease and volume loss. 2. Cervical spine: No acute findings identified. Degenerative changes as noted above.
[2021-12-20 12:47] VITALS: BP 144/96; BP 174/82; PULSE 92; PULSE 93; RESP 18; O2SAT 95; O2SAT 96; BMI 24.0
--- NOTE | 2021-12-20 13:36 | ED.GENADULT ---
HPI - General Adult General Chief complaint: Back Pain/Injury Stated complaint: BACK PAIN S/P FALL PER EMS Time Seen by Provider: 12/20/21 12:22 Source: patient and family (Deann Obrien ( son)) Mode of arrival: ambulatory Limitations: no limitations History of Present Illness HPI narrative: 81-year-old female history of compression lumbar fracture, wheelchair-bound due to hip fracture, arthritis of knees, chronic back pain, developing dementia, history of GERD, history of COPD ,history of the PE, presents to ED for back pain caused by mechanical fall that occurred last night. Son ( deann) states last night he put his mother to bed and put the AC and fan on and informed his mother if the room get cold for her to call him or his brother to turn off the air condition and fan. He informed her not to get up from the bed to try to walk and turn off by herself. Patient has poor ambulation since hip fracture and is wheelchair-bound. Patient states during the night her room was cold so she got up tried to turn off the air condition and fan. She states while trying to get to her wheelchair she lost her balance and fell onto her right lower back/hip area. Patient admits to hitting head but no loss of consciousness. Son states he went upstairs to the room and found mother on the floor and he states patient informed her that she fell due to her trying to get a wheelchair return the air condition off. Son states room was cold. Patient denies having any chest pain, shortness of breath, dizziness, headache, or abdominal pain before falling. Denies any loss of consciousness. Son states mother was only on the floor for 10 minutes. Son states patient has only complained of lower back pain since the fall. Son states patient is at her baseline mentally. Patient and son denies any loss of consciousness. Related Data Home Medications Medication Instructions Recorded Confirmed acetaminophen 650 mg 650 mg PO Q8H PRN Pain (Scale 05/23/20 09/11/21 tablet,extended release (Tylenol Score 1-3) Arthritis Pain) fluticasone 500 mcg-salmeterol 50 1 inh inhalation BID 05/23/20 09/11/21 mcg/dose blistr powdr for inhalation (Advair Diskus) Previous Rx's Medication Instructions Recorded Hospital bed with air mattress #1 ea 08/02/20 hospiptal bed #1 ea 08/18/20 diclofenac sodium 1 % topical gel 4 g topical QID #3 tubes 11/17/20 (Voltaren) famotidine 20 mg tablet 20 mg PO BID #60 tabs 11/17/20 hydrocortisone 2.5 % topical cream 1 appl GA BID-QID PRN hemorrhoids 11/17/20 with perineal applicator #30 grams (Proctosol HC) warfarin 5 mg tablet (Jantoven) 5 mg PO DAILY 90 days #90 caps 12/12/20 albuterol sulfate 90 mcg/actuation 2 puff inhalation Q4H PRN 12/29/20 aerosol inhaler Shortness Of Breath #8.5 grams metoprolol tartrate 25 mg tablet 25 mg PO BID #180 tabs 02/02/21 lidocaine 4 % topical patch 3 patch topical DAILY pain 7 days 04/24/21 (Aspercreme (lidocaine)) #30 ea meclizine 25 mg tablet 25 mg PO DAILY #90 caps 08/14/21 arm brace (Wrist Brace) #1 ea 09/11/21 leg brace (KOJO Knee Brace) #1 ea 09/11/21 apixaban 2.5 mg tablet (Eliquis) 2.5 mg PO BID #60 tabs 09/17/21 cyanocobalamin (vitamin B-12) 1,000 mcg PO DAILY #90 caps 09/18/21 1,000 mcg capsule folic acid 1 mg tablet 1 mg PO DAILY #90 tabs 09/18/21 sennosides 8.6 mg-docusate sodium 2 tab-cap PO BEDTIME PRN 12/11/21 50 mg tablet (Senna-S) constipation #60 tabs tramadol 50 mg tablet 50 mg PO TID PRN pain 30 days #90 12/11/21 tabs cefpodoxime 100 mg tablet 100 mg PO Q12H 7 days #14 tabs 12/20/21 Allergies Allergy/AdvReac Type Severity Reaction Status Date / Time albuterol [Ventolin HFA] Allergy Unknown palpitation Verified 12/11/21 14:20 s Review of Systems Review of Systems: Back pain right lower posterior hip pain from mechanical fall last night. Yes all other systems are reviewed and are negative PMFSH Past Medical History Medical History (Updated 12/20/21 @ 19:12 by LUCY Crain) Anxiety BPV (benign positional vertigo) Compression fracture of L1 lumbar vertebra COPD (chronic obstructive pulmonary disease) Diverticular disease GERD (gastroesophageal reflux disease) History of lung cancer History of pulmonary embolism Hypercholesterolemia Hypertension Knee osteoarthritis Low vitamin D level Surgical History History of ankle surgery History of cataract surgery History of hip replacement History of lobectomy of lung History of surgery Family History Family History Father Medical history unknown Mother Medical history unknown Son No problems noted. Daughter No problems noted. Social History Social History Household Members: Family Housing: Unknown / Unable to assess Alcohol intake: never Patient Tobacco Use Status: Former Tobacco user Quit Date: 20 years ago e-Cigarette/Vaping Use: Never Used Second Hand Smoke Exposure: No Use of substances other than those prescribed or required for medical reasons: No Advance Directives: Yes Advance Directives on File: Yes Advance Directives Date on File: 06/22/20 service: No Current occupational status: retired Cognitive needs: No Hearing needs: No Vision needs: Yes (Glasses) Physical Exam ED Vital Signs: Vital Signs - 24 hr 12/20/21 12:47 12/20/21 14:42 12/20/21 17:28 Temperature 98.4 F Pulse Rate 92 82 94 Respiratory Rate 18 14 16 Blood Pressure 174/82 H 178/81 H 138/73 Pulse Oximetry 96 98 94 Oxygen Delivery Method Room Air Room Air Room Air BMI result Body Mass Index 24.0 Const General: cooperative, healthy appearing, comfortable, no acute distress, well developed, alert, awake and Physically active Orientation/consciousness: patient oriented x3 HENMT Head: Yes normal to inspection, Yes No palpable skull fracture present, Yes normocephalic, Yes atraumatic and No abrasion Eyes General: appearance normal, both eyes and all related structures Neck Neck: Yes normal visual inspection, Yes full ROM, Yes no lymphadenopathy, Yes no meningeal signs, Yes trachea midline, Yes supple, No anterior neck swelling and No tender Chest Chest palpation & inspection: normal inspection of the chest and normal palpation of entire chest wall Resp Effort & Inspection: normal respiratory effort and able to speak in complete sentences Auscultation: clear to auscultation bilaterally Cardio Jugular venous distension: no JVD Heart sounds: S1 normal heart sound present and S2 normal heart sound present GI Inspection: Yes normal to inspection and No abdominal wall ecchymosis Palpation (GI): Soft to palpation, not firm, nontender, no guarding and not rigid General: No CVA tenderness and Yes no CVA tenderness Back/Spine/Pelvis Back: no CVA tenderness, No CVA tenderness and back tenderness (Right lower back posterior hip.) Back/spine/pelvis image: 1. Positive for tenderness on palpation. Negative any ecchymosis, deformity, crepitus. Patient has complete range of motion of lower extremities. Skin General skin exam: no rashes or lesions noted and elasticity normal Neuro General: patient oriented x3, gait normal, no meningeal signs and CN's II-XI intact bilaterally Cranial nerves: Yes CN's II-XII intact bilaterally Extrem Other: Patient has complete range of motion of lower extremities. Negative for internal/external rotation. General: Yes normal to inspection and Yes full ROM Psych Appearance: grossly normal, well kempt and not disheveled Course Course Course Narrative: History physical exam indicate mechanical fall. Patient's son does corroborate story. Will sent for imaging. No EKG or labs indicated. This is mechanical fall. Not suspecting any cardiac, metabolic, or pulmonary etiology. Reevaluation(s) Reevaluation #1: Patient images came back negative for any signs of trauma. Lung CT shows possible left lung malignancy. Spoke with leisa Mares who states patient has history of lung cancer and was removed by surgery years ago and has been evaluated every 6 months and was free of cancer. Son states last visit for evaluation to see if cancer came back with 6 months ago and was normal. He states patient used to follow with Dr. Casper. Dr. Casper was texts with copy of CT scan results waiting for response. Time: 17:53 Reevaluation #2: Dr. Casper states patient can be dsicharged and follow up as outpatient. Son Deann and Patient was made aware of this. Medical Decision Making MDM Narrative Medical decision making narrative: Mechanical fall. possiblel new lung malignancy Lab Data Labs: Lab Results 12/20/21 Range/Units 17:39 Urine Color YELLOW Urine Appearance HAZY Urine pH 7.0 (5.0-8.0) Ur Specific [place] 1.015 (1.005-1.025) Urine Protein NEG (NEG-TRACE) MG/DL Urine Glucose (UA) NEG (NEG) MG/DL Urine Ketones 5 (NEG) MG/DL Urine Blood 2+ H (NEG) Urine Nitrite NEG (NEG) Ur Leukocyte Esterase 3+ H (NEG) Urine RBC 1-4 (0) /HPF Urine WBC TNTC H (0-4) /HPF Ur Squamous Epith Cells TRACE /LPF Urine Bacteria 2+ /LPF Urine Mucus TRACE /LPF Discharge Plan Discharge Clinical Impression: Fall, Lung mass, Acute UTI Patient Disposition: Home, Self-Care Instructions: Urinary Tract Infection in Women (ED), Acute Low Back Pain (ED), Fall Prevention (ED) Additional Instructions: Your images came back negative for any traumatic injuries. Chest CT scan shows new possible lung malignancy. I spoke with Dr. Casper recommend immediate outpatient follow-up. Return to ED for chest pain, shortness of breath, passing out, abdominal pain, blood in stool, diarrhea, leg swelling, calf pain, coughing up blood, fever, flank pain, chills, or any other concerning symptoms. Will be discharged antibiotics for infection urine Prescriptions: New cefpodoxime 100 mg tablet 100 mg PO Q12H 7 Days Qty: 14 0RF Rx Instructions: must administer with a meal/food No Action (DME) Hospital bed with air mattress See Rx Instructions .Route .MEDSUPPLY Qty: 1 0RF Rx Instructions: As directed warfarin [Juntoven] 5 mg tablet 5 mg PO DAILY 90 Days Qty: 90 3RF Protocol: Dose Management Condition: Friday (Week One) Dose/Route: 5 mg Instruction: 1 x 5 mg tablet Condition: Friday Dose/Route: 2.5 mg Instruction: 0.5 x 5 mg tablets Condition: Friday Dose/Route: 5 mg Instruction: 1 x 5 mg tablet Condition: Friday Dose/Route: 2.5 mg Instruction: 0.5 x 5 mg tablets Condition: Dose/Route: 5 mg Instruction: 1 x 5 mg tablet Condition: Friday Dose/Route: 2.5 mg Instruction: 0.5 x 5 mg tablets Condition: Friday Dose/Route: 5 mg Instruction: 1 x 5 mg tablet Condition: Friday (Week Two) Dose/Route: 5 mg Instruction: 1 x 5 mg tablet Condition: Friday Dose/Route: 2.5 mg Instruction: 0.5 x 5 mg tablets Condition: Friday Dose/Route: 5 mg Instruction: 1 x 5 mg tablet Condition: Friday Dose/Route: 2.5 mg Instruction: 0.5 x 5 mg tablets Condition: Dose/Route: 5 mg Instruction: 1 x 5 mg tablet Condition: Friday Dose/Route: 2.5 mg Instruction: 0.5 x 5 mg tablets Condition: Friday Dose/Route: 5 mg Instruction: 1 x 5 mg tablet Protocol Text: Adjustment Start Date: 12/21/20 INR Value: 2.1 INR Date: 12/21/20 Recheck Date: 01/04/21 albuterol sulfate 90 mcg/actuation HFA aerosol inhaler 2 puff INHALATION Q4H PRN (Reason: Shortness Of Breath) Qty: 8.5 0RF metoprolol tartrate 25 mg tablet 25 mg PO BID Qty: 180 2RF meclizine 25 mg tablet 25 mg PO DAILY Qty: 90 2RF Eliquis 2.5 mg tablet 2.5 mg PO BID Qty: 60 3RF folic acid 1 mg tablet 1 mg PO DAILY Qty: 90 1RF cyanocobalamin (vitamin B-12) 1,000 mcg capsule 1,000 mcg PO DAILY Qty: 90 2RF acetaminophen [Tylenol Arthritis Pain] 650 mg tablet extended release 650 mg PO Q8H PRN (Reason: Pain (Scale Score 1-3)) fluticasone propion-salmeterol [Advair Diskus] 500-50 mcg/dose blister with device 1 inh inhalation BID Label Comments: last time filled was on 09/18/19 (DME) hospiptal bed See Rx Instructions .Route .MEDSUPPLY Qty: 1 0RF Rx Instructions: As directed hydrocortisone [Proctosol HC] 2.5 % cream with perineal applicator 1 appl GA BID-QID PRN (Reason: hemorrhoids) Qty: 30 0RF diclofenac sodium [Voltaren] 1 % gel 4 g topical QID Qty: 3 0RF Rx Instructions: apply to single knee, ankle, foot; for foot includes sole/toes/top of foot famotidine 20 mg tablet 20 mg PO BID Qty: 60 2RF lidocaine [Aspercreme (lidocaine HCl)] 4 % adhesive patch,medicated 3 patch topical DAILY 7 Days Qty: 30 0RF (DME) KOJO Knee Brace Misc See Rx Instructions .Route Qty: 1 0RF Rx Instructions: As directed wear with ambulation (DME) Wrist Brace Misc See Rx Instructions .Route Qty: 1 0RF Rx Instructions: As directed bilateral wrists, wear as needed for pain sennosides-docusate sodium [Senna-S] 8.6-50 mg tablet 2 tab-cap PO BEDTIME PRN (Reason: constipation) Qty: 60 3RF tramadol 50 mg tablet 50 mg PO TID PRN (Reason: pain) 30 Days Qty: 90 0RF Referrals: Vivian Casper MD [Physician] - (Possible new left lung malignancy.) Interventions: ED Discharge Assessment Last Done: 12/20/21 19:23 Discharge Date/Time: 12/20/21 19:23 Print Language: Latvian
[2021-12-20 14:42] VITALS: BP 178/81; PULSE 82; RESP 14; O2SAT 98
[2021-12-20 17:28] VITALS: BP 138/73; PULSE 94; RESP 16; TEMP 36.9; O2SAT 94
[2021-12-20 17:52] LABS: Appearance Urine HAZY; Color Urine YELLOW; Glucose Urine UA NEG (NEG); Leukocyte Esterase Urine 3+ (NEG); Nitrite Urine NEG (NEG); Specific Gravity - Urine 1.015 (1.005-1.025); UACC Culture Trigger YES; Urine Blood 2+ (NEG); Urine Ketones 5 MG/DL (NEG); Urine Protein NEG (NEG-TRACE)
[2021-12-20] MEDS: traMADoL HCL 50 MG TABLET PO (18:06)
[2021-12-20 18:25] LABS: Squamous Epithelial Cell Urine TRACE /LPF; WBC Urine TNTC /HPF (0-4)
[2021-12-20 18:26] LABS: Bacteria Urine 2+ /LPF; Mucus Urine TRACE /LPF
== END 2021-12-20 19:23 | disposition home or self-care (01) ==
PROVIDERS: Physician Assistant; Emergency Provider Emergency Medicine; PCP Internal Medicine
DX: S39.92XA Unspecified injury of lower back, initial encounter (principal); N39.0 Urinary tract infection, site not specified; R91.8 Other nonspecific abnormal finding of lung field; F03.90 Unspecified dementia, unspecified severity, without behavioral disturbance, psychotic disturbance, mood disturbance, and anxiety; M54.2 Cervicalgia; M54.6 Pain in thoracic spine; R51.9 Headache, unspecified; R07.89 Other chest pain; R10.2 Pelvic and perineal pain; M25.552 Pain in left hip; M25.551 Pain in right hip; W05.0XXA Fall from non-moving wheelchair, initial encounter; Y93.9 Activity, unspecified; Y92.9 Unspecified place or not applicable; Y99.9 Unspecified external cause status; Z87.891 Personal history of nicotine dependence; Z79.899 Other long term (current) drug therapy
CPT/HCPCS: 70450; 71250; 72125; 74176; 81001; 87086; 87147; 99284

== ENCOUNTER 2022-01-15 12:43 | Outpatient (REF) | payer OTHER, SELFPAY ==
--- NOTE | ~2022-01-15 | PE_ITS ---
EXAMINATION: Fluorine-18 FDG PET/CT Scan CLINICAL INDICATION: Initial treatment management. Left upper lobe lung mass. PROCEDURE: 84 minutes following the intravenous administration of 17.9 mCi of fluorine 18 FDG, images from the base of the skull to the mid thighs were obtained using a combined PET/CT scanner with CT scan based attenuation correction. No oral contrast was administered. No intravenous contrast was administered. Transverse, coronal, sagittal, and volume reconstruction projections were obtained. The patient's blood glucose as determined by a finger stick, was 97 mg/dl immediately prior to injection. Total CT exam dose-length product 465.67 mGy-cm * These CT images were obtained using dose optimization techniques as appropriate, variously including the following: Automated exposure control * Adjustment of mA and/or kV according to patient size (this includes techniques or standardized protocols for targeted exams where dose is matched to indication/reason for exam; i.e. extremities or head) * Use of iterative reconstruction technique COMPARISON: No previous PET/CT scan is available for comparison. CT scans of the chest, abdomen, and pelvis dated 12/20/2021 are available for comparison. MRI of the lumbar spine dated 12/07/2021 is available for comparison. FINDINGS: (Slice numbers described in this report are numbered superiorly to inferiorly with slice #1 in the head) NECK AND VISUALIZED HEAD: No foci of abnormal FDG activity are noted. The distribution of FDG activity is physiological. There is no cervical lymphadenopathy. THORAX: The previously visualized left upper lobe spiculated pulmonary nodule is again visualized and is weakly FDG avid, SUVmax 2.0, slice 55/223. On the CT images this measures 1.4 x 0.9 cm in largest transverse dimensions, an approximately 1.4 cm cephalocaudad. It does not appear significantly changed from the 12/20/[address] scan. Additional small subcentimeter nodules visualized on the 12/20/2021 CT scan are not as well delineated on the current nondiagnostic CT images, but appear unchanged. These are all too small to be characterized on the FDG PET images. There is no mediastinal, supraclavicular, or axillary lymphadenopathy. There is no pleural or pericardial fluid, or pneumothorax. ABDOMEN AND PELVIS: There is a focus of intensely increased FDG activity associated with a segment of the rectosigmoid colon, and on the CT images this appears to have diffuse wall thickening. This shows SUVmax 22.0, slice 161/223. Immediately adjacent to the left side of this there is an additional small focus of FDG activity, SUVmax 6.6 and this appears to be associated with a lymph node measuring 1.5 x 1.0 cm in largest transverse dimensions. No additional foci of abnormal FDG activity are present in the abdomen or pelvis. There is mild FDG activity scattered throughout the remainder of the gastrointestinal tract with no additional suspicious focal component. The liver, gallbladder, spleen, adrenal glands, and pancreas appear unremarkable. A hypodense posterior right upper pole renal cyst is visualized, unchanged in appearance from 12/20/2021 and markedly FDG photopenic. The kidneys are otherwise unremarkable. There are diffuse uterine calcifications in the right-sided bladder diverticulum is noted. The pelvic organs are otherwise unremarkable. MUSCULOSKELETAL: There is a focus of mildly increased In the T3 vertebral body with no associated CT findings. There is mildly increased FDG activity diffusely in the L2 vertebral body, possibly associated with subtle compression deformity in the superior endplate of L2. However, the recent 12/07/2021 MRI of the lumbar spine did not show L2 compression fracture. Kyphoplasty cement is visualized in the L1 vertebral body with no associated abnormal FDG activity. Is mildly increased activity diffusely in both shoulders, more prominently on the left, likely arthritic. There are no additional suspicious sclerotic or lytic lesions visualized. A right total hip prosthesis is noted. VASCULAR: Diffuse vascular calcifications including coronary. PET/PET CT fusion skull to thigh IMPRESSION: 1. There is intense abnormal FDG activity associated with a region of wall thickening in the rectosigmoid colon as described above. This is strongly suspicious for malignancy. Correlation with colonoscopy is recommended. 2. Immediately adjacent to the abnormality described above in the rectosigmoid colon an FDG avid lymph node is present that is likely a metastasis. 3. The spiculated left upper lobe pulmonary nodule visualized on the 12/20/[address] scan shows weak FDG activity. Although this weak FDG activity is nonspecific, and combination with the CT appearance of this nodule, it is likely malignant. 4. A small mild FDG avid focus in the T3 vertebral body is not associated with any CT findings and is nonspecific. While this could be degenerative in etiology, a small metastasis at this site cannot be ruled out. This could be further characterized with MRI, performed without and with intravenous contrast, if clinically indicated. 5. No additional abnormalities are present suspicious for other metastatic or malignant lesions. 6. Vascular calcifications including coronary.
== END 2022-01-15 12:44 | disposition home or self-care (01) ==
LOC: HO.PET 12:43
PROVIDERS: PCP Internal Medicine; Visit Provider Internal Medicine
DX: Z13.89 Encounter for screening for other disorder (principal)

== ENCOUNTER 2022-01-24 09:15 | Day surgery (SDC) | payer OTHER, SELFPAY ==
[2022-01-24] VITALS (8 sets, daily range): BP systolic 107–145; BP diastolic 54–80; PULSE 77–89; RESP 16–17; TEMP 36.6–36.9; O2SAT 95–96; BMI 27.3
--- NOTE | ~2022-01-24 | CT_ITS ---
PROCEDURE: CT GUIDED BIOPSY, LUNG CLINICAL INFORMATION: Left upper lobe mass. COMPARISON: CT chest 12/20/[address] PET exam 01/15/2022. TECHNIQUE: Following explaining CT fluoroscopy-guided left upper lobe nodule/density biopsy procedure, benefits and risks via a clinical nursing instructor, a and consent was obtained. Patient was placed in the right semi decubitus view and preliminary imaging was obtained. Repeat CT imaging was performed through the right upper chest following placement of lead markers along the right anterior chest wall. An optimal site was selected, marked, cleaned and draped in usual sterile manner with 2% chlorhexidine solution. 1% lidocaine was injected at the puncture site. A 22-gauge guide needle was advanced from the right anterolateral chest skin incision to the right anterolateral pleural space. Coaxially, a 20-gauge gun was administered and a 4-pass core biopsy was obtained. Part of the tissue collected was sent in formalin solution and part of it on a slide for immediate results. Postprocedure the guide needle was withdrawn and complete hemostasis was achieved. Sterile Band-Aid was applied postprocedure. Repeat CT imaging was performed through the upper lungs. This CT examination was performed using dose optimization techniques as appropriate, variously including the following: *Automated exposure control *Adjustment of mA and/or kV according to patient size (this includes techniques or standardized protocols for targeted exams where dose is matched to indication/reason for exam; i.e. extremities or head) *Use of iterative reconstruction technique DLP: 148 mGy-cm. FINDINGS: On preliminary imaging, there is a linear nodule seen in left upper lobe with interstitial thickening extending to the left anterior chest wall. CT fluoroscopy-guided left upper lobe biopsy performed x4. Preliminary readings from pathology revealed atypical cells. Definite results are pending. CT/CT biopsy lung LT IMPRESSION: Successful CT fluoroscopy-guided left upper lobe nodule biopsy performed.
--- NOTE | ~2022-01-24 | XR_ITS ---
EXAMINATION: XR CHEST CLINICAL INFORMATION: Status post left upper lobe nodule biopsy. COMPARISON: None TECHNIQUE: 2 views of the chest were obtained. FINDINGS: The lungs are expanded with linear patchy density measuring approximately 1.3 cm. Postbiopsy of this lesion. There is no visible pneumothorax seen. The lungs are expanded with increased interstitial markings. The heart size and pulmonary vascularity is normal. No gross bony abnormality seen. XR/XR chest 2V IMPRESSION: No evidence of pneumothorax status post left upper lobe lung biopsy. No change in left upper lobe linear opacity.
[2022-01-24 09:34] LABS: MANUAL DIFF FLAG NO
[2022-01-24 09:40] LABS: Basophils Absolute Auto 0.1 X10*3/uL (0.0-0.2); Basophils Percent Auto 0.7 % (0-2); Eosinophils Absolute Auto 0.2 X10*3/uL (0.0-0.4); Eosinophils Percent Auto 2.7 % (0-4); Hematocrit 37.5 % (37.0-47.0); Hemoglobin 11.8 g/dl (12.0-16.0); Imm Gran Abs Auto 0.01 X10*3/uL (0.00-0.03); Imm Gran Pct Auto 0.1 % (0.0-0.4); Lymphocytes Absolute Auto 3.1 X10*3/uL (1.2-4.9); Lymphocytes Percent Auto 38.1 % (20-40); Mean Corpuscular HGB Conc 31.5 g/dl (31.0-35.0); Mean Corpuscular Hemoglobin 27.3 pg (27.0-33.0); Mean Corpuscular Volume 86.6 fL (80.0-98.0); Mean Platelet Volume 10.2 fL (9.4-12.3); Monocytes Absolute Auto 0.7 X10*3/uL (0.1-1.2); Monocytes Percent Auto 8.8 % (2-11); Neutrophils Percent Auto 49.6 % (45-73); Platelet Count 253 X10*3/uL (160-400); Red Blood Count 4.33 X10*6/uL (4.20-5.50); Red Cell Distribution Width 13.6 % (11.0-16.0); White Blood Count 8.2 X10*3/uL (4.8-10.8)
[2022-01-24 09:47] LABS: Prothrombin Time 11.3 SEC (10.0-13.1)
[2022-01-24 09:50] LABS: Partial Thromboplastin Time 32.2 SEC (26.0-36.4)
== END 2022-01-24 15:03 | disposition home or self-care (01) ==
PROVIDERS: Radiology Diagnostic Radiology; PCP Internal Medicine; Visit Provider Radiology Diagnostic Radiology
DX: R91.1 Solitary pulmonary nodule (principal); Z85.118 Personal history of other malignant neoplasm of bronchus and lung; Z90.2 Acquired absence of lung [part of]; K21.9 Gastro-esophageal reflux disease without esophagitis; J44.9 Chronic obstructive pulmonary disease, unspecified; Z86.711 Personal history of pulmonary embolism; Z79.01 Long term (current) use of anticoagulants; Z79.51 Long term (current) use of inhaled steroids; Z79.899 Other long term (current) drug therapy; Z88.8 Allergy status to other drugs, medicaments and biological substances; Z87.891 Personal history of nicotine dependence; R91.8 Other nonspecific abnormal finding of lung field
CPT/HCPCS: 10009; 32408; 36415; 71046; 85025; 85610; 85730; 88172; 88173; 88305; 88333; 99152; 99153; J2250; J3010

== ENCOUNTER 2022-03-08 10:05 | Outpatient (REF) | payer OTHER, SELFPAY ==
[2022-03-08 10:47] LABS: MANUAL DIFF FLAG NO
[2022-03-08 11:32] LABS: Basophils Percent Auto 0.4 % (0-2); Eosinophils Absolute Auto 0.3 X10*3/uL (0.0-0.4); Eosinophils Percent Auto 4.2 % (0-4); Hematocrit 39.1 % (37.0-47.0); Hemoglobin 12.3 g/dl (12.0-16.0); Imm Gran Abs Auto 0.02 X10*3/uL (0.00-0.03); Imm Gran Pct Auto 0.2 % (0.0-0.4); Lymphocytes Absolute Auto 2.7 X10*3/uL (1.2-4.9); Lymphocytes Percent Auto 33.3 % (20-40); Mean Corpuscular HGB Conc 31.5 g/dl (31.0-35.0); Mean Corpuscular Hemoglobin 27.9 pg (27.0-33.0); Mean Corpuscular Volume 88.7 fL (80.0-98.0); Mean Platelet Volume 10.9 fL (9.4-12.3); Monocytes Absolute Auto 0.7 X10*3/uL (0.1-1.2); Monocytes Percent Auto 8.2 % (2-11); Neutrophils Absolute Auto 4.3 x10*3/uL (2.0-8.3); Neutrophils Percent Auto 53.7 % (45-73); Platelet Count 255 X10*3/uL (160-400); Red Blood Count 4.41 X10*6/uL (4.20-5.50); Red Cell Distribution Width 14.1 % (11.0-16.0); White Blood Count 8.1 X10*3/uL (4.8-10.8)
[2022-03-08 12:15] LABS: Alanine Aminotransferase 7 U/L (0-31); Alkaline Phosphatase 94 U/L (39-117); Anion Gap 17 (12-20); Aspartate Amino Transferase 15 U/L (5-31); Bilirubin Total 0.4 mg/dL (0.0-1.0); Blood Urea Nitrogen 9 mg/dL (9-16); Calcium 9.2 mg/dL (8.4-10.2); Carbon Dioxide 22 mmol/L (22-29); Chloride 106 mmol/L (96-108); Cholesterol 187 mg/dL; Estimated Glomerular Filt Rate > 60; Glucose Random 108 mg/dL (60-115); HDL Cholesterol 40 mg/dL; LDL Cholesterol Calculated 119 mg/dl; Sodium 141 mmol/L (135-145); Total Protein 7.8 g/dL (6.5-8.0); Triglycerides 140 mg/dL
[2022-03-08 12:31] LABS: Vitamin D 25-OH Total 21.8 ng/mL (>30)
[2022-03-08 12:36] LABS: Thyroid Stimulating Hormone 1.35 uIU/mL (0.32-4.0)
[2022-03-08 13:04] LABS: Folate > 20.0 ng/mL (> or = 4.0); Vitamin B12 1188 pg/mL (200-900)
== END 2022-03-08 10:06 | disposition home or self-care (01) ==
LOC: HO.LAB 10:05
PROVIDERS: PCP Internal Medicine; Visit Provider Internal Medicine
DX: C34.90 Malignant neoplasm of unspecified part of unspecified bronchus or lung (principal); E78.00 Pure hypercholesterolemia, unspecified; R94.8 Abnormal results of function studies of other organs and systems; R91.8 Other nonspecific abnormal finding of lung field; Z85.118 Personal history of other malignant neoplasm of bronchus and lung
CPT/HCPCS: 36415; 80053; 80061; 82306; 82378; 82607; 82746; 84439; 84443; 85025; 99202

== ENCOUNTER → 2022-03-27 13:51 | Outpatient (BNVA) | payer OTHER, SELFPAY | PROVIDERS: PCP Internal Medicine; Visit Provider Internal Medicine | DX: R94.8 Abnormal results of function studies of other organs and systems (principal) | CPT/HCPCS: 99202; 99212 ==

== ENCOUNTER 2022-04-11 10:56 | Day surgery (SDC) | payer OTHER, SELFPAY ==
[2022-04-05 12:01] VITALS: BMI 25.0
--- NOTE | 2022-04-10 11:27 | HO.ANESPROP2 ---
Documented by User: Jacquie Macias NP 04/10/22 11:31 HPI - Anesthesia Eval Consult details Narrative: 81yo F for Sigmoidoscopy Flexible Lung ca s/p lobectomy 2014 with recent abnormal PET scan and lung biopsy Hx PE - on warfarin PMFSH Active Problems Active Problems: All Active Problems (Updated 03/05/22 @ 13:17 by Kamla Abdul PA-C) Abnormal PET scan of colon (Acute) Mass of left lung (Acute) Lung cancer (Acute) History of primary malignant neoplasm of left lung (Acute ~2014) COPD (chronic obstructive pulmonary disease) (Acute) History of pulmonary embolism (Acute ~2013) Current use of anticoagulant therapy (Acute ~2013) Osteoporosis (Acute ~2007) Hypertension (Acute) Anemia (Acute) Hypercholesterolemia (Acute) BPV (benign positional vertigo) (Acute) GERD (gastroesophageal reflux disease) (Acute) Constipation (Acute) Depression (Acute) Anxiety (Acute) 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) Degenerative disc disease, lumbar (Acute) Degenerative arthritis of knee, bilateral (Acute) Bilateral leg weakness (Acute) Vitamin B 12 deficiency (Acute) Hemorrhoid (Acute) Past Medical History Medical History Anxiety Back pain BPV (benign positional vertigo) Carpal tunnel syndrome Compression fracture of L1 lumbar vertebra COPD (chronic obstructive pulmonary disease) Diverticular disease GERD (gastroesophageal reflux disease) History of primary malignant neoplasm of left lung (~2014) History of pulmonary embolism (~2013) Hypercholesterolemia Hypertension Low vitamin D level Osteoporosis (~2007) Family History Family History Son No problems noted. Daughter No problems noted. Mother No problems noted. Father No problems noted. Surgical History Surgical History History of ankle surgery History of cataract surgery History of colonoscopy History of esophagogastroduodenoscopy (EGD) History of hemiarthroplasty of right hip (~2020) History of kyphoplasty (~2017) History of lobectomy of lung (~2014) History of lung biopsy (~2021) Social History Social History Household Members: Family Housing: House Alcohol intake: never Patient Tobacco Use Status: Former Tobacco user Quit Date: 20 years ago e-Cigarette/Vaping Use: Never Used Second Hand Smoke Exposure: No Are you DNR?: No Advance Directives: Yes Advance Directives on File: Yes Advance Directives Date on File: 06/22/20 Nutrition Risks: No Nutritional Risk service: No Current occupational status: retired Cognitive needs: Yes (wheelchair) Hearing needs: No Vision needs: Yes (Glasses) Meds Allergies Allergy/AdvReac Type Severity Reaction Status Date / Time albuterol [Ventolin HFA] AdvReac Intermediate palpitation Verified 04/05/22 12:01 s Home Medications Medication Instructions Recorded Confirmed Last Taken Type acetaminophen 650 mg 650 mg PO Q8H PRN Pain (Scale 05/23/20 04/05/22 Unknown History tablet,extended release (Tylenol Score 1-3) Arthritis Pain) fluticasone 500 mcg-salmeterol 50 1 inh inhalation BID 05/23/20 04/05/22 Unknown History mcg/dose blistr powdr for inhalation (Advair Diskus) Exam Exam Date and Time: April 10, 2022 1127 Height,Weight and Vital Signs: Height 4 ft 11 in Weight 56.245 kg Pertinent Lab Results Pertinent Lab Results: Laboratory Tests 03/08/22 03/08/22 10:46 10:46 WBC 8.1 Hgb 12.3 Hct 39.1 Plt Count 255 Sodium 141 Potassium 4.0 Chloride 106 Carbon Dioxide 22 BUN 9 Creatinine 0.83 Narrative Narrative: EKG 2020 Vent. Rate : 072 BPM ? ? Atrial Rate : 072 BPM ?? P-R Int : 152 ms? QRS Dur : 076 ms ? ? QT Int : 398 ms ? ? ? P-R-T Axes : 026 002 022 degrees ?? QTc Int : 435 ms ? Normal sinus rhythm Normal ECG When compared with ECG of 31-JAN-2020 17:53, No significant change was found Assessment and Plan Assessment Anesthesia Assessment: Chart Reviewed Documented by User: Jose Francisco Lu MD 04/11/22 12:18 [facility] Past Medical History Medical History Anxiety Back pain BPV (benign positional vertigo) Carpal tunnel syndrome Compression fracture of L1 lumbar vertebra COPD (chronic obstructive pulmonary disease) Diverticular disease GERD (gastroesophageal reflux disease) History of primary malignant neoplasm of left lung (~2014) History of pulmonary embolism (~2013) Hypercholesterolemia Hypertension Low vitamin D level Osteoporosis (~2007) Family History Family History Son No problems noted. Daughter No problems noted. Mother No problems noted. Father No problems noted. Family history of problems with anesthesia: No Surgical History Surgical History History of ankle surgery History of cataract surgery History of colonoscopy History of esophagogastroduodenoscopy (EGD) History of hemiarthroplasty of right hip (~2020) History of kyphoplasty (~2017) History of lobectomy of lung (~2014) History of lung biopsy (~2021) History of Problems with Anesthesia: No Social History Social History Household Members: Family Housing: House Alcohol intake: never Patient Tobacco Use Status: Former Tobacco user Quit Date: 20 years ago e-Cigarette/Vaping Use: Never Used Second Hand Smoke Exposure: No Are you DNR?: No Advance Directives: Yes Advance Directives on File: Yes Advance Directives Date on File: 06/22/20 Nutrition Risks: No Nutritional Risk service: No Current occupational status: retired Cognitive needs: Yes (wheelchair) Hearing needs: No Vision needs: Yes (Glasses) Meds Allergies Allergy/AdvReac Type Severity Reaction Status Date / Time albuterol [Ventolin HFA] AdvReac Intermediate palpitation Verified 04/05/22 12:01 s Home Medications Medication Instructions Recorded Confirmed Last Taken Type acetaminophen 650 mg 650 mg PO Q8H PRN Pain (Scale 05/23/20 04/05/22 Unknown History tablet,extended release (Tylenol Score 1-3) Arthritis Pain) fluticasone 500 mcg-salmeterol 50 1 inh inhalation BID 05/23/20 04/05/22 Unknown History mcg/dose blistr powdr for inhalation (Advair Diskus) Exam Airway Mallampati Class: II TM Dist: >3cm Neck ROM: Full Denture: Upper and Lower Loose/Missing/Broken Teeth: Yes Heart: [id number] Lungs: +b/s bilaterally Assessment and Plan Assessment Anesthesia Assessment: Anesthesia Plan Discussed Final Anesthetic Review Family History of Problems with Anesthesia: No History of Problems with Anesthesia: No NPO: Yes ASA Class: III Final Preanesthetic Review: No Changes in Pt Med Stat, Meds/Allgs Chart Reviewed, Consent Obtained/Reviewed and Anes Risks/Benef Reviewed Patient Risk: Intermediate Procedure Risk: Low Assessment/Block/Sedation in SS: Assess/Block/Sedation-SS Anesthetic Plan Anesthetic Plan: MAC: and Agree w/ Assess. and Plan Disposition: Standard PACU
[2022-04-11] MEDS: Lactated Ringers 1,000 ML 100 ML IVCONT (11:45)
[2022-04-11] MEDS: Sodium Phosphate,Mono-Dibasic 133 ML ENEMA PR (11:50)
[2022-04-11 11:51] LABS: Prothrombin Time 11.1 SEC (10.0-13.1)
[2022-04-11 12:16] VITALS: BP 144/74; PULSE 77; RESP 18; TEMP 36.6; O2SAT 96
--- NOTE | 2022-04-11 12:16 | MHC.SHP ---
Pre-Procedural Eval Section A Date of Service: 04/11/22 The patient is an INPATIENT: No The History & Physical has been completed within 30 days and I have reviewed it.: Yes Section B Chief Complaint: Abnormal results of function studies of other orga Allergies: Allergies Allergy/AdvReac Type Severity Reaction Status Date / Time albuterol [Ventolin HFA] AdvReac Intermediate palpitation Verified 04/05/22 12:01 s Plan Diagnosis/Plan: Unchanged I have reviewed the history and physical and performed a pertinent physical examination on my patient. No changes have occurred unless specified.
--- NOTE | 2022-04-11 12:54 | P.OP_ITS ---
Operative Note Operative Note Date of Service: 04/11/22 Narrative: Procedure: Flexible sigmoidoscopy Indication: Abnormal imaging Endoscopist: Candice Rowland MD Anesthesia Provider: Anesthesia type: MAC Instrument: Olympus GIF-190 and [id number] Consent: Indication, risks vs benefits, and alternatives were discussed with the patient and her daughter who gave written informed consent to proceed. EKG, pulse, pulse oximetry and blood pressure were monitored throughout the procedure. Please see anesthesia flowsheet. Procedure: The patient was brought to the procedure room and placed in the left lateral decubitus position. IV medications were administered by the anesthesia provider in attendance. A digital rectal exam was performed which was normal. The scope was then inserted through the anus and advanced through the colon to the sigmoid colon at 25 cm. Mucosa was carefully examined under high definition white light as the instrument was slowly withdrawn in a retrograde panoramic fashion. Retroflexion was performed in rectum. The procedure was not difficult. There were no immediate obvious complications. Limitations: Poor prep. Findings: Mucosa: Normal mucosa in rectum. At 25 cm there was a polypoid mass occupying the entire lumen which could not be traversed with a gastroscope or a colonoscope. Cold forceps biopsies were obtained. Protruding lesions: * Large internal hemorrhoids without stigmata of recent bleeding. Impression: 1. Sigmoid colon mass (biopsy) 2. Internal hemorrhoids Recommendations: - Follow path results. - CT abd and pelvis with contrast - Continue Miralax 1-2 times a day to keep stools soft/liquidy - Restricted fiber intake - Depending on overall clinical course, can consider palliative colonic stent
[2022-04-11 13:01] VITALS: BP 92/54; PULSE 73; RESP 16; TEMP 36.1; O2SAT 99
[2022-04-11 13:16] VITALS: BP 121/101; PULSE 77; RESP 16; O2SAT 99
[2022-04-11 13:31] VITALS: BP 147/106; PULSE 79; RESP 16; O2SAT 98
== END 2022-04-11 14:24 | disposition home or self-care (01) ==
PROVIDERS: Nurse Practitioner; PCP Internal Medicine; Visit Provider Internal Medicine
PROC: 0DJD8ZZ Inspection of Lower Intestinal Tract, Via Natural or Artificial Opening Endoscopic (ICD-10-PCS; CPT 45330; principal; 2022-04-11 12:00)
DX: C18.7 Malignant neoplasm of sigmoid colon (principal); K64.8 Other hemorrhoids; C34.12 Malignant neoplasm of upper lobe, left bronchus or lung; J44.9 Chronic obstructive pulmonary disease, unspecified; H81.10 Benign paroxysmal vertigo, unspecified ear; Z91.81 History of falling; I10 Essential (primary) hypertension; E78.00 Pure hypercholesterolemia, unspecified; M81.0 Age-related osteoporosis without current pathological fracture; E55.9 Vitamin D deficiency, unspecified; K21.9 Gastro-esophageal reflux disease without esophagitis; Z85.118 Personal history of other malignant neoplasm of bronchus and lung; Z90.2 Acquired absence of lung [part of]; Z86.711 Personal history of pulmonary embolism; Z99.3 Dependence on wheelchair; Z79.51 Long term (current) use of inhaled steroids; Z79.899 Other long term (current) drug therapy; Z88.8 Allergy status to other drugs, medicaments and biological substances; Z87.891 Personal history of nicotine dependence; Z98.890 Other specified postprocedural states
CPT/HCPCS: 45331; 36415; 85610; 88305; 88341; 88342

== ENCOUNTER 2022-04-19 15:26 | Emergency (ER) | payer OTHER, SELFPAY ==
--- NOTE | ~2022-04-19 | CT_ITS ---
EXAMINATION: CT ABDOMEN AND PELVIS WITH CONTRAST CLINICAL INFORMATION: Abdominal pain with nausea and vomiting. Colon cancer. COMPARISON: CT abdomen pelvis 12/20/2021 TECHNIQUE: Multidetector volumetric images were obtained from the superior aspect of the liver through the pubic symphysis following administration 85 mL of Omnipaque 350 intravenous contrast. Sagittal and coronal reformatted images were obtained on the technologist's workstation. Oral contrast: No This CT examination was performed using dose optimization techniques as appropriate, variously including the following: *Automated exposure control *Adjustment of mA and/or kV according to patient size (this includes techniques or standardized protocols for targeted exams where dose is matched to indication/reason for exam; i.e. extremities or head) *Use of iterative reconstruction technique DLP: 437 mGy-cm FINDINGS: LUNG BASES: The visualized lung bases are unremarkable. LIVER, GALLBLADDER, AND BILIARY TREE: The liver is normal in size, shape, and attenuation. No focal hepatic lesion or biliary ductal dilatation is present. The gallbladder is unremarkable with no evidence of radiopaque gallstones, gallbladder wall thickening, or obvious pericholecystic inflammatory changes. PANCREAS: Unremarkable. SPLEEN: Unremarkable. ADRENAL GLANDS: Unremarkable. KIDNEYS AND URETERS: 3.1 cm low-density benign-appearing right upper pole renal cyst. No imaging follow-up required. No other renal lesions. No renal calculi or hydronephrosis. No perinephric collections or stranding. BLADDER: Unremarkable. GASTROINTESTINAL TRACT: Small hiatal hernia. No dilated bowel loops. Colonic diverticulosis. No evidence of acute diverticulitis. Circumferential segment of thick-walled sigmoid colon extending over an approximately 5 cm length with minimal surrounding pericolonic fat stranding in the partially 1.5 cm adjacent soft tissue nodule/pericolonic lymph nodes consistent with the patient's known colon cancer. No other bowel wall thickening. Normal appendix. No ascites or free air. ABDOMINAL WALL: No significant hernia is appreciated. Small bubbles of subcutaneous gas in pericolonic nodule or lymph node lower ventral abdominal wall consistent with injection sites. Correlate clinically. LYMPH NODES: Aside from the pericolonic nodule or lymph node described above. No other lymphadenopathy. VASCULAR: Extensive vascular calcifications. Normal caliber abdominal aorta. PELVIC VISCERA: Unremarkable. OSSEOUS STRUCTURES: L2 superior endplate compression fracture with approximately 45% vertebral body height loss. Finding was present on PET/CT 01/15/2022, though new since comparison CT from earlier. There is compression deformity and post vertebral plasty change at L1. Mild to moderate multilevel degenerative disc disease. No suspicious osseous lesion. Right hip hemiarthroplasty. CT/CT abdomen pelvis w IV con IMPRESSION: 1. No evidence of bowel obstruction or other acute intra-abdominal process. 2. Colonic diverticulosis. No evidence of acute diverticulitis. 3. Circumferential segment of thick-walled sigmoid colon extending over an approximately 5 cm length with minimal surrounding pericolonic fat stranding and a 1.5 cm adjacent soft tissue nodule/pericolonic lymph node consistent with the patient's known colon cancer. 4. No other lymphadenopathy or evidence of distant metastatic disease. 5. L2 superior endplate compression fracture with approximately 45% vertebral body height loss. Finding was present on PET/CT 01/15/2022.
[2022-04-19 15:43] VITALS: BP 152/82; PULSE 94; O2SAT 95
[2022-04-19 15:50] VITALS: BP 148/70; PULSE 78; RESP 18; TEMP 36.6; O2SAT 98; BMI 29.0
--- NOTE | 2022-04-19 15:58 | ECG_ITS ---
Test Reason : Abdominal pain Blood Pressure : / mmHG Vent. Rate : 079 BPM Atrial Rate : 079 BPM P-R Int : 158 ms QRS Dur : 078 ms QT Int : 362 ms P-R-T Axes : 053 -15 020 degrees QTc Int : 415 ms Normal sinus rhythm Low voltage QRS RSR' or QR pattern in V1 suggests right ventricular conduction delay Nonspecific T wave abnormality Inferior leads Anterior leads Abnormal ECG When compared with ECG of 22-JUN-2020 13:49, Nonspecific T wave abnormality now evident in Anterior leads T wave inversion more evident in Inferior leads Referred By: Mónica Lopez Electronically Signed By:ZAN GROSS MD
--- NOTE | 2022-04-19 16:00 | ED_ITS ---
HPI - Abdominal Pain General Chief Complaint: Nausea/Vomiting/Diarrhea Stated Complaint: ABD PAIN Time Seen by Provider: 04/19/22 15:56 Source: patient, family and EMS Mode of arrival: EMS Limitations: language barrier History of Present Illness HPI narrative: 81-year-old female presents via EMS for 3 days of nausea, vomiting, constipation, and lower abdominal pain. She does have a significant history of lung and colon cancer. She does not report any hematemesis, abdominal distention, inability to pass flatus, dysuria, chest pain or pressure, palpitations, shortness breath, fevers, chills, and fatigue. She does have an appointment with Dr. Casper on Friday, missed her appointment yesterday due to illness. MD elicited complaint: abdominal pain Pertinent past history: constipation and other (Lung and colon cancer) Onset (ago): day(s) (3) Pain Consistency: constant Location: diffuse Severity: severe Pain scale (0-10): 8 Quality: cramping and aching Radiation: none Exacerbating factors: vomiting and movement Relieving factors: nothing Associated symptoms: nausea, vomiting and constipation Treatments prior to arrival: prescription analgesics Related Data Home Medications Medication Instructions Recorded Confirmed acetaminophen 650 mg 650 mg PO Q8H PRN Pain (Scale 05/23/20 04/05/22 tablet,extended release (Tylenol Score 1-3) Arthritis Pain) fluticasone 500 mcg-salmeterol 50 1 inh inhalation BID 05/23/20 04/05/22 mcg/dose blistr powdr for inhalation (Advair Diskus) Previous Rx's Medication Instructions Recorded Hospital bed with air mattress #1 ea 08/02/20 hospiptal bed #1 ea 08/18/20 diclofenac sodium 1 % topical gel 4 g topical QID #3 tubes 11/17/20 (Voltaren) famotidine 20 mg tablet 20 mg PO BID #60 tabs 11/17/20 hydrocortisone 2.5 % topical cream 1 appl [place] BID-QID PRN hemorrhoids 11/17/20 with perineal applicator #30 grams (Proctosol HC) albuterol sulfate 90 mcg/actuation 2 puff inhalation Q4H PRN 12/29/20 aerosol inhaler Shortness Of Breath #8.5 grams meclizine 25 mg tablet 25 mg PO DAILY #90 caps 08/14/21 cyanocobalamin (vitamin B-12) 1,000 mcg PO DAILY #90 caps 09/18/21 1,000 mcg capsule sennosides 8.6 mg-docusate sodium 2 tab-cap PO BEDTIME PRN 12/11/21 50 mg tablet (Senna-S) constipation #60 tabs cyanocobalamin (vitamin B-12) 1,000 mcg PO DAILY #60 tabs 03/05/22 1,000 mcg tablet (Vitamin B-12) folic acid 1 mg tablet 1 mg PO DAILY #60 tabs 03/05/22 polyethylene glycol 3350 17 17 g PO BID 30 days #1,020 grams 03/27/22 gram/dose oral powder (Miralax) metoprolol tartrate 25 mg tablet 25 mg PO BID #180 tabs 03/29/22 warfarin 5 mg tablet (Jantoven) 5 mg PO DAILY 90 days #90 caps 04/07/22 tramadol 50 mg tablet 50 mg PO TID PRN pain 30 days #90 04/09/22 tabs cefuroxime axetil 250 mg tablet 250 mg PO Q12H 5 days #10 tabs 04/19/22 enoxaparin 60 mg/0.6 mL 60 mg (0.6 mL) subcut Q24H #6 mL 04/19/22 subcutaneous syringe (Lovenox) Allergies Allergy/AdvReac Type Severity Reaction Status Date / Time No Known Allergies Allergy Verified 04/11/22 14:12 Review of Systems Review of Systems Constitutional: No Fever, No Chills ENT/Mouth: No Ear Pain, No Hoarseness, No sore throat Eyes: No Eye Pain, No Swelling, No Redness, No Foreign Body Cardiovascular: No Chest Pain, No SOB Respiratory: No Cough, No Dyspnea Gastrointestinal: Pot Nausea, positive Vomiting, No Diarrhea, positive abdominal Pain, positive constipation Genitourinary: No Dysuria, No Hematuria Musculoskeletal: No joint pain, No Myalgias, No Joint Swelling Skin: No Skin lacerations, No rash Neuro: No Weakness, No Numbness, No Paresthesias, No Loss of Consciousness, No Dizziness, No Headache Psych: No Anxiety/Panic, No Depression Heme/Lymph: no easy bruising, no Lymphadenopathy Endocrine: No Polyuria, No Polydipsia Yes all other systems are reviewed and are negative [facility] Past Medical History Attestation statement: The following information was validated with the patient. Source: old records reviewed Medical History Anxiety Back pain BPV (benign positional vertigo) Carpal tunnel syndrome Compression fracture of L1 lumbar vertebra COPD (chronic obstructive pulmonary disease) Diverticular disease GERD (gastroesophageal reflux disease) History of primary malignant neoplasm of left lung (~2014) History of pulmonary embolism (~2013) Hypercholesterolemia Hypertension Low vitamin D level Osteoporosis (~2007) Surgical History History of ankle surgery History of cataract surgery History of colonoscopy History of esophagogastroduodenoscopy (EGD) History of hemiarthroplasty of right hip (~2020) History of kyphoplasty (~2017) History of lobectomy of lung (~2014) History of lung biopsy (~2021) Family History Family History Son No problems noted. Daughter No problems noted. Mother No problems noted. Father No problems noted. Social History Social History Household Members: Family Housing: House Alcohol intake: never Patient Tobacco Use Status: Former Tobacco user Quit Date: 20 years ago e-Cigarette/Vaping Use: Never Used Second Hand Smoke Exposure: No Advance Directives: Yes Advance Directives on File: Yes Advance Directives Date on File: 04/12/22 service: No Current occupational status: retired Cognitive needs: Yes (wheelchair) Hearing needs: No Vision needs: Yes (Glasses) Physical Exam ED Vital Signs: Vital Signs - 24 hr 04/19/22 15:50 04/19/22 18:00 04/19/22 19:39 Temperature 97.8 F 98.2 F Pulse Rate 78 82 Respiratory Rate 18 18 18 Blood Pressure 148/70 H 134/60 Pulse Oximetry 98 97 Oxygen Delivery Method Room Air Room Air 04/19/22 21:38 Temperature 98.7 F Pulse Rate 83 Respiratory Rate 18 Blood Pressure 158/86 H Pulse Oximetry 97 Oxygen Delivery Method Room Air BMI result Body Mass Index 29.0 Appearance: Alert. Oriented X3. Mild distress. Eyes: Pupils equal, round and reactive to light. Sclera nonicteric. ENT: Pharynx normal. Dry mucous membranes. Neck: Normal inspection. Neck supple. CVS: Normal heart rate and rhythm. Apical pulse good pulses to extremities. Respiratory: No respiratory distress. Diminished lung sounds bilaterally but clear. Abdomen: Soft and diffusely tender, no rigidity or rebound. Skin: Skin warm and dry. Normal skin color. Normal skin turgor. Extremities: Nonambulatory per baseline Neuro: No motor deficit. No sensory deficit. 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 She presents diffuse abdominal pain, nausea, vomiting, and constipation for 3 days. She does not report fevers, chills, or weight loss. Her last meal was at noon today. Patient's functional status is compromised, and is wheelchair bound and requires assistance with all a IDLs and ADLs. Considering patient's significant past medical history, plan will be CT abdomen pelvis with contrast to rule out obstruction. Will give Zofran and pain management. CT abdomen and pelvis is consistent with prior findings regarding colon cancer. No obstruction noted. Plan of care is to discharge home as patient did have a large bowel movement and no longer has abdominal pain or nausea. Patient will follow-up with her oncologist on Friday as scheduled. Will treat for urinary tract infection. Family supports this decision, as patient would like to be discharged home. Patient verbalized understanding of and agrees to plan of ca re. format proofreader utilized for all correspondence. Google translate utilized for discharge instructions. MDM - Abdominal Pain Differential Diagnosis Differential diagnosis: Likely abdominal pain, bowel perforation, constipation, diverticulitis and small bowel obstruction Medical Records Attestation: I reviewed the patient's medical records. Lab Data Attestation: I reviewed the patient's lab results. Result diagrams: 04/19/22 17:11 04/19/22 17:11 Labs: Lab Results 04/19/22 04/19/22 04/19/22 Range/Units 17:11 17:11 17:11 WBC 9.6 (4.8-10.8) X10*3/uL RBC 4.07 L (4.20-5.50) X10*6/uL Hgb 11.4 L (12.0-16.0) g/dl Hct 36.5 L (37.0-47.0) % MCV 89.7 (80.0-98.0) fL MCH 28.0 (27.0-33.0) pg MCHC 31.2 (31.0-35.0) g/dl RDW 14.1 (11.0-16.0) % Plt Count 251 (160-400) X10*3/uL MPV 10.1 (9.4-12.3) fL Immature Gran % (Auto) 0.2 (0.0-0.4) % Neut % (Auto) 67.7 (45-73) % Lymph % (Auto) 22.3 (20-40) % [place] % (Auto) 7.2 (2-11) % Eos % (Auto) 2.3 (0-4) % Baso % (Auto) 0.3 (0-2) % Lymph # (Auto) 2.2 (1.2-4.9) X10*3/uL [place] # (Auto) 0.7 (0.1-1.2) X10*3/uL Eos # (Auto) 0.2 (0.0-0.4) X10*3/uL Baso # (Auto) 0.0 (0.0-0.2) X10*3/uL Abs Immat Gran (auto) 0.02 (0.00-0.03) X10*3/uL Absolute Neuts (auto) 6.5 (2.0-8.3) x10*3/uL Absolute Nucleated RBC 0.000 (0.0-0.012) X10*3/uL Nucleated RBC % (auto) 0.0 (0.0-0.2) /100WBC Sodium 142 (135-145) mmol/L Potassium 4.7 (3.3-5.1) mmol/L Chloride 105 (96-108) mmol/L Carbon Dioxide 23 (22-29) mmol/L Anion Gap 19 (12-20) BUN 10 (9-16) mg/dL Creatinine 1.02 (0.5-1.4) mg/dL Estim Creat Clear Calc 27.9 Estimated GFR 52 Random Glucose 107 (60-115) mg/dL Calcium 8.9 (8.4-10.2) mg/dL Magnesium 2.1 (1.6-2.6) mg/dL Total Bilirubin 0.3 (0.0-1.0) mg/dL Direct Bilirubin < 0.2 (0.0-0.5) mg/dL AST 16 (5-31) U/L ALT 11 (0-31) U/L Alkaline Phosphatase 102 (39-117) U/L Troponin I High Sens 7.4 (<3.5-17.0) ng/L Total Protein 7.9 (6.5-8.0) g/dL Albumin 4.1 (3.5-5.0) g/dL Lipase 71 (8-78) U/L Urine Color Urine Appearance Urine pH (5.0-9.0) Ur Specific [place] (1.005-1.025) Urine Protein (Neg-Trace) mg/dL Urine Glucose (UA) (Negative) mg/dL Urine Ketones (Negative) mg/dL Urine Blood (Negative) Urine Nitrite (Negative) Ur Leukocyte Esterase (Negative) Urine RBC (0-2) /HPF Urine WBC (0-5) /HPF Ur Squamous Epith Cells (0-2) /HPF Urine Bacteria (None Seen) Hyaline Casts (0-2) /LPF 04/19/22 Range/Units 21:32 WBC (4.8-10.8) X10*3/uL RBC (4.20-5.50) X10*6/uL Hgb (12.0-16.0) g/dl Hct (37.0-47.0) % MCV (80.0-98.0) fL MCH (27.0-33.0) pg MCHC (31.0-35.0) g/dl RDW (11.0-16.0) % Plt Count (160-400) X10*3/uL MPV (9.4-12.3) fL Immature Gran % (Auto) (0.0-0.4) % Neut % (Auto) (45-73) % Lymph % (Auto) (20-40) % [place] % (Auto) (2-11) % Eos % (Auto) (0-4) % Baso % (Auto) (0-2) % Lymph # (Auto) (1.2-4.9) X10*3/uL [place] # (Auto) (0.1-1.2) X10*3/uL Eos # (Auto) (0.0-0.4) X10*3/uL Baso # (Auto) (0.0-0.2) X10*3/uL Abs Immat Gran (auto) (0.00-0.03) X10*3/uL Absolute Neuts (auto) (2.0-8.3) x10*3/uL Absolute Nucleated RBC (0.0-0.012) X10*3/uL Nucleated RBC % (auto) (0.0-0.2) /100WBC Sodium (135-145) mmol/L Potassium (3.3-5.1) mmol/L Chloride (96-108) mmol/L Carbon Dioxide (22-29) mmol/L Anion Gap (12-20) BUN (9-16) mg/dL Creatinine (0.5-1.4) mg/dL Estim Creat Clear Calc Estimated GFR Random Glucose (60-115) mg/dL Calcium (8.4-10.2) mg/dL Magnesium (1.6-2.6) mg/dL Total Bilirubin (0.0-1.0) mg/dL Direct Bilirubin (0.0-0.5) mg/dL AST (5-31) U/L ALT (0-31) U/L Alkaline Phosphatase (39-117) U/L Troponin I High Sens (<3.5-17.0) ng/L Total Protein (6.5-8.0) g/dL Albumin (3.5-5.0) g/dL Lipase (8-78) U/L Urine Color Yellow Urine Appearance Clear Urine pH 7.5 (5.0-9.0) Ur Specific [place] >= 1.030 H (1.005-1.025) Urine Protein Negative (Neg-Trace) mg/dL Urine Glucose (UA) Negative (Negative) mg/dL Urine Ketones Negative (Negative) mg/dL Urine Blood Small (1+) H (Negative) Urine Nitrite Negative (Negative) Ur Leukocyte Esterase Trace H (Negative) Urine RBC 6-10 H (0-2) /HPF Urine WBC 0-5 (0-5) /HPF Ur Squamous Epith Cells 0-2 (0-2) /HPF Urine Bacteria None Seen (None Seen) Hyaline Casts 0-2 (0-2) /LPF Imaging Data CT abdomen pelvis: Attestation: I personally reviewed and interpreted this imaging study as follows: Radiologist's impression: FINDINGS: LUNG BASES: The visualized lung bases are unremarkable.? LIVER, GALLBLADDER, AND BILIARY TREE: The liver is normal in size, shape, and attenuation. No focal hepatic lesion or biliary ductal dilatation is present. The gallbladder is unremarkable with no evidence of radiopaque gallstones, gallbladder wall thickening, or obvious pericholecystic inflammatory changes.? PANCREAS: Unremarkable.? SPLEEN: Unremarkable.? ADRENAL GLANDS: Unremarkable.? KIDNEYS AND URETERS: 3.1 cm low-density benign-appearing right upper pole renal cyst. No imaging follow-up required. No other renal lesions. No renal calculi or hydronephrosis. No perinephric collections or stranding.? BLADDER: Unremarkable.? GASTROINTESTINAL TRACT: Small hiatal hernia. No dilated bowel loops. Colonic diverticulosis. No evidence of acute diverticulitis. Circumferential segment of thick-walled sigmoid colon extending over an approximately 5 cm length with minimal surrounding pericolonic fat stranding in the partially 1.5 cm adjacent soft tissue nodule/pericolonic lymph nodes consistent with the patient's known colon cancer. No other bowel wall thickening. Normal appendix. No ascites or free air. ABDOMINAL WALL: No significant hernia is appreciated. Small bubbles of subcutaneous gas in pericolonic nodule or lymph node lower ventral abdominal wall consistent with injection sites. Correlate clinically. LYMPH NODES: Aside from the pericolonic nodule or lymph node described above. No other lymphadenopathy. VASCULAR: Extensive vascular calcifications. Normal caliber abdominal aorta. PELVIC VISCERA: Unremarkable.? OSSEOUS STRUCTURES: L2 superior endplate compression fracture with approximately 45% vertebral body height loss. Finding was present on PET/CT 01/15/2022, though new since comparison CT from earlier. There is compression deformity and post vertebral plasty change at L1. Mild to moderate multilevel degenerative disc disease. No suspicious osseous lesion. Right hip hemiarthroplasty.? CT/CT abdomen pelvis w IV con IMPRESSION: 1.? No evidence of bowel obstruction or other acute intra-abdominal process. 2.? Colonic diverticulosis. No evidence of acute diverticulitis. 3.? Circumferential segment of thick-walled sigmoid colon extending over an approximately 5 cm length with minimal surrounding pericolonic fat stranding and a 1.5 cm adjacent soft tissue nodule/pericolonic lymph node consistent with the patient's known colon cancer. 4.? No other lymphadenopathy or evidence of distant metastatic disease. 5.? L2 superior endplate compression fracture with approximately 45% vertebral body height loss. Finding was present on PET/CT 01/15/2022. ? Discharge Plan Discharge Clinical Impression: Colon cancer, Constipation, Nausea & vomiting, UTI (urinary tract infection) Patient Disposition: Home, Self-Care Instructions: Constipation (ED), Acute Nausea and Vomiting (ED), Urinary Tract Infection in Older Adults (ED) Additional Instructions: Se le evalu? por n?useas, v?mitos y estre?imiento. La tomograf?a computarizada de abdomen y pelvis es negativa para obstrucci?n. La tomograf?a computarizada muestra los hallazgos cr?nicos del c?ncer de colon. Ji un seguimiento con el Dr. Casper seg?n lo programado m?s adelante esta semana. [place] cefuroxima 250 mg cada 12 horas hi los pr?ximos 5 d?as. Dede medicamento antibi?sushma es para la infecci?n del tracto urinario. Figueroa por elegir dede departamento de emergencias para choudhury evaluaci?n. Por favor, ji un seguimiento con el m?dico de atenci?n primaria seg?n sea necesario. Regrese al departamento de emergencias por cualquier s?ntoma nuevo, preocupante o que empeore You were evaluated for nausea vomiting and constipation. CT scan of abdomen and pelvis is negative for obstruction. CT scan does show the chronic findings of colon cancer. Please follow-up with Dr. Casper as scheduled later this week. Please take cefuroxime 250 mg every 12 hours for the next 5 days. This antibiotic medication is for urinary tract infection. Thank you for choosing this emergency department for evaluation. Please foll ow-up with primary care physician as needed. Return to the emergency department for any new, concerning, or worsening symptoms. Prescriptions: New cefuroxime axetil 250 mg tablet 250 mg PO Q12H 5 Days Qty: 10 0RF Rx Instructions: Stop famotidine while taking this medication No Action (DME) Hospital bed with air mattress See Rx Instructions .Route .MEDSUPPLY Qty: 1 0RF Rx Instructions: As directed albuterol sulfate 90 mcg/actuation HFA aerosol inhaler 2 puff INHALATION Q4H PRN (Reason: Shortness Of Breath) Qty: 8.5 0RF meclizine 25 mg tablet 25 mg PO DAILY Qty: 90 2RF cyanocobalamin (vitamin B-12) 1,000 mcg capsule 1,000 mcg PO DAILY Qty: 90 2RF metoprolol tartrate 25 mg tablet 25 mg PO BID Qty: 180 2RF warfarin [Jantoven] 5 mg tablet 5 mg PO DAILY 90 Days Qty: 90 3RF Protocol: Dose Management Condition: Friday (Week One) Dose/Route: 5 mg Instruction: 1 x 5 mg tablet Condition: Friday Dose/Route: 2.5 mg Instruction: 0.5 x 5 mg tablets Condition: Friday Dose/Route: 5 mg Instruction: 1 x 5 mg tablet Condition: Friday Dose/Route: 2.5 mg Instruction: 0.5 x 5 mg tablets Condition: Dose/Route: 5 mg Instruction: 1 x 5 mg tablet Condition: Friday Dose/Route: 2.5 mg Instruction: 0.5 x 5 mg tablets Condition: Friday Dose/Route: 5 mg Instruction: 1 x 5 mg tablet Condition: Friday (Week Two) Dose/Route: 5 mg Instruction: 1 x 5 mg tablet Condition: Friday Dose/Route: 2.5 mg Instruction: 0.5 x 5 mg tablets Condition: Friday Dose/Route: 5 mg Instruction: 1 x 5 mg tablet Condition: Friday Dose/Route: 2.5 mg Instruction: 0.5 x 5 mg tablets Condition: Dose/Route: 5 mg Instruction: 1 x 5 mg tablet Condition: Friday Dose/Route: 2.5 mg Instruction: 0.5 x 5 mg tablets Condition: Friday Dose/Route: 5 mg Instruction: 1 x 5 mg tablet Protocol Text: Adjustment Start Date: 12/21/20 INR Value: 2.1 INR Date: 12/21/20 Recheck Date: 01/04/21 tramadol 50 mg tablet 50 mg PO TID PRN (Reason: pain) 30 Days Qty: 90 0RF enoxaparin [Lovenox] 60 mg/0.6 mL syringe 60 mg subcut Q24H Qty: 6 0RF cyanocobalamin (vitamin B-12) [Vitamin B-12] 1,000 mcg Tablet 1,000 mcg PO DAILY Qty: 60 3RF folic acid 1 mg Tablet 1 mg PO DAILY Qty: 60 3RF acetaminophen [Tylenol Arthritis Pain] 650 mg tablet extended release 650 mg PO Q8H PRN (Reason: Pain (Scale Score 1-3)) fluticasone propion-salmeterol [Advair Diskus] 500-50 mcg/dose blister with de vice 1 inh inhalation BID Label Comments: last time filled was on 09/18/19 (DME) hospiptal bed See Rx Instructions .Route .MEDSUPPLY Qty: 1 0RF Rx Instructions: As directed hydrocortisone [Proctosol HC] 2.5 % cream with perineal applicator 1 appl TX BID-QID PRN (Reason: hemorrhoids) Qty: 30 0RF diclofenac sodium [Voltaren] 1 % gel 4 g topical QID Qty: 3 0RF Rx Instructions: apply to single knee, ankle, foot; for foot includes sole/toes/top of foot famotidine 20 mg tablet 20 mg PO BID Qty: 60 2RF sennosides-docusate sodium [Senna-S] 8.6-50 mg tablet 2 tab-cap PO BEDTIME PRN (Reason: constipation) Qty: 60 3RF polyethylene glycol 3350 [Miralax] 17 gram/dose powder 17 g PO BID 30 Days Qty: 1020 0RF Interventions: ED Discharge Assessment Last Done: 04/19/22 22:47 Discharge Date/Time: 04/19/22 22:48
[2022-04-19 17:19] LABS: MANUAL DIFF FLAG NO
[2022-04-19 17:21] LABS: Basophils Percent Auto 0.3 % (0-2); Eosinophils Absolute Auto 0.2 X10*3/uL (0.0-0.4); Eosinophils Percent Auto 2.3 % (0-4); Hematocrit 36.5 % (37.0-47.0); Hemoglobin 11.4 g/dl (12.0-16.0); Imm Gran Abs Auto 0.02 X10*3/uL (0.00-0.03); Imm Gran Pct Auto 0.2 % (0.0-0.4); Lymphocytes Absolute Auto 2.2 X10*3/uL (1.2-4.9); Lymphocytes Percent Auto 22.3 % (20-40); Mean Corpuscular HGB Conc 31.2 g/dl (31.0-35.0); Mean Corpuscular Volume 89.7 fL (80.0-98.0); Mean Platelet Volume 10.1 fL (9.4-12.3); Monocytes Absolute Auto 0.7 X10*3/uL (0.1-1.2); Monocytes Percent Auto 7.2 % (2-11); Neutrophils Absolute Auto 6.5 x10*3/uL (2.0-8.3); Neutrophils Percent Auto 67.7 % (45-73); Platelet Count 251 X10*3/uL (160-400); Red Blood Count 4.07 X10*6/uL (4.20-5.50); Red Cell Distribution Width 14.1 % (11.0-16.0); White Blood Count 9.6 X10*3/uL (4.8-10.8)
[2022-04-19 17:44] LABS: Troponin-I High Sensitivity 7.4 ng/L (<3.5-17.0)
[2022-04-19 18:00] VITALS: RESP 18
[2022-04-19] MEDS: 0.9 % Sodium Chloride 1,000 ML 200 ML IVCONT (18:11)
[2022-04-19] MEDS: ondansetron HCL 4 MG/2 ML VIAL IVPUSH (18:11)
[2022-04-19] MEDS: Morphine Sulfate 2 MG/ML CARTRIDGE IVPUSH (18:12)
[2022-04-19 18:45] LABS: Alanine Aminotransferase 11 U/L (0-31); Albumin Level 4.1 g/dL (3.5-5.0); Alkaline Phosphatase 102 U/L (39-117); Anion Gap 19 (12-20); Aspartate Amino Transferase 16 U/L (5-31); Bilirubin Direct < 0.2 mg/dL (0.0-0.5); Bilirubin Total 0.3 mg/dL (0.0-1.0); Blood Urea Nitrogen 10 mg/dL (9-16); Calcium 8.9 mg/dL (8.4-10.2); Carbon Dioxide 23 mmol/L (22-29); Chloride 105 mmol/L (96-108); Creatinine Clr Calc Pharmacy 27.9; Estimated Glomerular Filt Rate 52; Glucose Random 107 mg/dL (60-115); Lipase 71 U/L (8-78); Magnesium 2.1 mg/dL (1.6-2.6); Potassium 4.7 mmol/L (3.3-5.1); Sodium 142 mmol/L (135-145); Total Protein 7.9 g/dL (6.5-8.0)
[2022-04-19] MEDS: iohexoL 350 MG/ML 100 ML INFUS..BTL IV (19:31)
--- NOTE | 2022-04-19 19:35 | PC.NURSE ---
pt's daughter Danni called for updates on pt care plan. informed that there has been an order placed for CT abdomen and pelvis, waiting for imaging to take place and be resulted on.
[2022-04-19 19:39] VITALS: BP 134/60; PULSE 82; RESP 18; TEMP 36.8; O2SAT 97
[2022-04-19 21:38] VITALS: BP 158/86; PULSE 83; RESP 18; TEMP 37.1; O2SAT 97
[2022-04-19 21:54] LABS: Appearance Urine Clear; Color Urine Yellow; Glucose Urine UA Negative (Negative); Leukocyte Esterase Urine Trace (Negative); Nitrite Urine Negative (Negative); PH 7.5 (5.0-9.0); Specific Gravity - Urine >= 1.030 (1.005-1.025); UMIC TRIGGER UACC YES; Urine Blood Small (1+) (Negative); Urine Ketones Negative (Negative); Urine Protein Negative (Neg-Trace)
[2022-04-19 21:59] LABS: Bacteria Urine None Seen (None Seen); Hyaline Casts Urine 0-2 /LPF (0-2); Squamous Epithelial Cell Urine 0-2 /HPF (0-2); WBC Urine 0-5 /HPF (0-5)
== END 2022-04-19 22:48 | disposition home or self-care (01) ==
PROVIDERS: Nurse Practitioner Family; Emergency Provider Student in an Organized Health Care Education/Training Program
DX: N39.0 Urinary tract infection, site not specified (principal); C18.9 Malignant neoplasm of colon, unspecified; K59.00 Constipation, unspecified; Z79.899 Other long term (current) drug therapy; Z87.891 Personal history of nicotine dependence
CPT/HCPCS: 36415; 74177; 80048; 80076; 81001; 83690; 83735; 84484; 85025; 93005; 96374; 96375; 99284; J2270; J2405; Q9967

== ENCOUNTER → 2022-04-24 09:48 | Outpatient (BNVA) | payer OTHER, SELFPAY | PROVIDERS: PCP Internal Medicine; Visit Provider Internal Medicine | DX: C18.7 Malignant neoplasm of sigmoid colon (principal); C34.90 Malignant neoplasm of unspecified part of unspecified bronchus or lung; J43.1 Panlobular emphysema; Z86.711 Personal history of pulmonary embolism; Z79.01 Long term (current) use of anticoagulants | CPT/HCPCS: 99212 ==

== ENCOUNTER → 2022-05-08 08:48 | Outpatient (BNVA) | payer OTHER, SELFPAY | PROVIDERS: PCP Internal Medicine; Visit Provider Surgery | DX: C18.7 Malignant neoplasm of sigmoid colon (principal); Z98.890 Other specified postprocedural states | CPT/HCPCS: 99202 ==

== ENCOUNTER → 2022-05-17 14:23 | Outpatient (BNVA) | payer OTHER, SELFPAY | PROVIDERS: PCP Internal Medicine; Visit Provider Surgery | DX: C18.7 Malignant neoplasm of sigmoid colon (principal); Z85.118 Personal history of other malignant neoplasm of bronchus and lung; Z87.891 Personal history of nicotine dependence; Z99.3 Dependence on wheelchair | CPT/HCPCS: 99212 ==

== ENCOUNTER 2022-05-20 15:22 | Inpatient (IN) | payer OTHER, SELFPAY ==
[2022-05-20] VITALS (9 sets, daily range): BP systolic 92–192; BP diastolic 47–140; PULSE 100–158; RESP 15–34; TEMP 36.4–41.1; O2SAT 95–97; BMI 25.3; BMI 26.4
--- NOTE | ~2022-05-20 | XR_ITS ---
EXAMINATION: XR CHEST CLINICAL INFORMATION: Fever. COMPARISON: January 24, 2022. TECHNIQUE: Portable AP view of the chest was obtained. XR/XR chest 1V FINDINGS/IMPRESSION: The study is significantly limited by portable technique and low lung volumes. Bilateral patchy interstitial prominence appears grossly similar compared with January 24, 2022. Bibasilar linear densities suggest atelectasis and/or fibrotic changes appear similar as well. An approximately 1 cm left apical nodular density appears unchanged. No consolidation, effusion, or pneumothorax is seen. The cardiac silhouette is poorly evaluated. The aorta is mildly atherosclerotic. The patient is status post kyphoplasty or vertebral plasty of the lower thoracic vertebral body.
--- NOTE | 2022-05-20 07:28 | ECG_ITS ---
Test Reason : TACHY Blood Pressure : / mmHG Vent. Rate : 169 BPM Atrial Rate : 000 BPM P-R Int : 000 ms QRS Dur : 070 ms QT Int : 302 ms P-R-T Axes : 000 -32 022 degrees QTc Int : 506 ms Sinus tachycardia Left axis deviation Low voltage QRS Inferior infarct , age undetermined Abnormal ECG When compared with ECG of 19-APR-2022 19:39, Vent. rate has increased BY 90 BPM Inferior infarct is now Present Referred By: Esau Mojica Electronically Signed By:JORGE MARIEE MD
[2022-05-20 16:19] LABS: MANUAL DIFF FLAG NO
[2022-05-20 16:22] LABS: Basophils Percent Auto 0.3 % (0-2); Eosinophils Percent Auto 0.3 % (0-4); Hematocrit 31.5 % (37.0-47.0); Imm Gran Abs Auto 0.02 X10*3/uL (0.00-0.03); Imm Gran Pct Auto 0.3 % (0.0-0.4); Lymphocytes Percent Auto 14.7 % (20-40); Mean Corpuscular HGB Conc 31.7 g/dl (31.0-35.0); Mean Corpuscular Hemoglobin 28.3 pg (27.0-33.0); Mean Corpuscular Volume 89.2 fL (80.0-98.0); Mean Platelet Volume 10.6 fL (9.4-12.3); Monocytes Absolute Auto 0.1 X10*3/uL (0.1-1.2); Neutrophils Absolute Auto 5.8 x10*3/uL (2.0-8.3); Neutrophils Percent Auto 83.4 % (45-73); Platelet Count 210 X10*3/uL (160-400); Red Blood Count 3.53 X10*6/uL (4.20-5.50); Red Cell Distribution Width 13.6 % (11.0-16.0)
[2022-05-20 16:32] LABS: Prothrombin Time 63.1 SEC (10.0-13.1)
[2022-05-20] MEDS: Piperacillin Sodium/Tazobactam 4.5 GM in 0.9 % Sodium Chloride 100 ML IV (16:34)
[2022-05-20] MEDS: 0.9 % Sodium Chloride 1,650 ML 1650 ML IV (16:34)
[2022-05-20] MEDS: Acetaminophen 1,000 MG/100 ML PIGGYBACK 400 MG IV (16:34)
[2022-05-20 16:36] LABS: Appearance Urine Cloudy; Color Urine Yellow; Glucose Urine UA Negative (Negative); Leukocyte Esterase Urine Large (3+) (Negative); Nitrite Urine Negative (Negative); PH 6.5 (5.0-9.0); UMIC TRIGGER UACC YES; Urine Blood Moderate (2+) (Negative); Urine Ketones 15 mg/dL (Negative); Urine Protein 30 (1+) mg/dL (Neg-Trace)
[2022-05-20 16:38] LABS: Bacteria Urine 4+ (None Seen); Squamous Epithelial Cell Urine 0-2 /HPF (0-2); UACC Culture Trigger YES; WBC Urine >50 /HPF (0-5)
--- NOTE | 2022-05-20 16:41 | ED_ITS ---
HPI - Altered Mental Status General Chief Complaint: Altered Mental Status Stated Complaint: AMS Time Seen by Provider: 05/20/22 16:01 Source: family and EMS Mode of arrival: EMS Limitations: altered mental status History of Present Illness HPI narrative: This is 81 years old female with history of colon cancer and history of lung cancer presented emergency department with the eye fever today and lethargy. This trees obtained by the daughter and son patient been well until yesterday she has been having diarrhea per son, and today she became a lethargic and high fever was noted MD complaint: altered mental status Onset (ago): hour(s) (10) Timing confirmed by: family member Severity: severe Consistency of symptoms: constant Associated symptoms: denies other symptoms Related Data Home Medications Medication Instructions Recorded Confirmed acetaminophen 650 mg 650 mg PO Q8H PRN Pain (Scale 05/23/20 05/20/22 tablet,extended release (Tylenol Score 1-3) Arthritis Pain) fluticasone 500 mcg-salmeterol 50 1 inh inhalation BID 05/23/20 05/20/22 mcg/dose blistr powdr for inhalation (Advair Diskus) metoprolol tartrate 25 mg tablet 25 mg PO DAILY 05/20/22 05/20/22 warfarin 5 mg tablet 5 mg PO DAILY 05/20/22 05/20/22 Previous Rx's Medication Instructions Recorded Hospital bed with air mattress #1 ea 08/02/20 hospiptal bed #1 ea 08/18/20 diclofenac sodium 1 % topical gel 4 g topical QID #3 tubes 11/17/20 (Voltaren) famotidine 20 mg tablet 20 mg PO BID #60 tabs 11/17/20 albuterol sulfate 90 mcg/actuation 2 puff inhalation Q4H PRN 12/29/20 aerosol inhaler Shortness Of Breath #8.5 grams meclizine 25 mg tablet 25 mg PO DAILY #90 caps 08/14/21 cyanocobalamin (vitamin B-12) 1,000 mcg PO DAILY #60 tabs 03/05/22 1,000 mcg tablet (Vitamin B-12) folic acid 1 mg tablet 1 mg PO DAILY #60 tabs 03/05/22 polyethylene glycol 3350 17 17 g PO BID 30 days #1,020 grams 03/27/22 gram/dose oral powder (Miralax) enoxaparin 60 mg/0.6 mL 60 mg (0.6 mL) subcut Q24H #6 mL 05/05/22 subcutaneous syringe (Lovenox) tramadol 50 mg tablet 50 mg PO TID PRN pain 30 days #90 05/08/22 tabs Allergies Allergy/AdvReac Type Severity Reaction Status Date / Time No Known Allergies Allergy Verified 05/08/22 08:57 Review of Systems Constitutional: Constitutional: Reports no additional constitutional complaints ENT: Reports system reviewed and no additional complaints, except as documented Respiratory: Respiratory: Reports no additional respiratory complaints Gastrointestinal: Gastrointestinal: Reports diarrhea Psychiatric: Psychiatric: Reports no additional psychiatric complaints Endocrine: Endocrine: Reports no additional endocrine complaints [facility] Past Medical History Medical History Anxiety Back pain BPV (benign positional vertigo) Carpal tunnel syndrome Compression fracture of L1 lumbar vertebra COPD (chronic obstructive pulmonary disease) Diverticular disease GERD (gastroesophageal reflux disease) History of primary malignant neoplasm of left lung (~2014) History of pulmonary embolism (~2013) Hypercholesterolemia Hypertension Low vitamin D level Osteoporosis (~2007) Surgical History History of ankle surgery History of cataract surgery History of colonoscopy History of esophagogastroduodenoscopy (EGD) History of hemiarthroplasty of right hip (~2020) History of kyphoplasty (~2017) History of lobectomy of lung (~2014) History of lung biopsy (~2021) Family History Family History Son No problems noted. Daughter No problems noted. Mother No problems noted. Father No problems noted. Social History Social History Household Members: Children Household Members Other:: son Housing: Apartment Alcohol intake: never Patient Tobacco Use Status: Former Tobacco user Quit Date: 20 years ago e-Cigarette/Vaping Use: Never Used Second Hand Smoke Exposure: No Advance Directives Date on File: 04/12/22 service: No Current occupational status: retired Cognitive needs: Yes (wheelchair) Hearing needs: No Vision needs: Yes (Glasses) Physical Exam ED Vital Signs: Vital Signs - 24 hr 12/05/22 15:31 05/20/22 15:59 05/20/22 16:37 Temperature 106 F H 104.2 F H Pulse Rate 158 H 145 H Respiratory Rate 34 H 22 H Blood Pressure 163/73 H 146/125 H 161/70 H Pulse Oximetry 95 96 Oxygen Delivery Method Room Air Room Air 05/20/22 17:20 05/20/22 18:25 05/20/22 16:15 Temperature 103.8 F H 102.6 F H Pulse Rate 133 H 127 H 140 H Respiratory Rate 28 H Blood Pressure 161/70 H Pulse Oximetry Oxygen Delivery Method 05/20/22 18:30 Temperature 102.5 F H Pulse Rate 130 H Respiratory Rate 20 Blood Pressure 108/51 L Pulse Oximetry 95 Oxygen Delivery Method Room Air BMI result Body Mass Index 25.3 She is lethargic but she is easily arousable Const General: ill appearing Nutritional Appearance: average body habitus HENMT Head: Yes normal to inspection General nose exam: Normal external nose present Face and sinus: Yes normal facial exam Mouth: Normal oral and palatal mucosa present Throat: Yes posterior oropharynx normal Neck Neck: Yes normal visual inspection Chest Chest palpation & inspection: normal inspection of the chest Resp Effort & Inspection: normal respiratory effort Auscultation: clear to auscultation bilaterally Cardio Jugular venous distension: no JVD Rate: tachycardic Heart sounds: S1 normal heart sound present GI Inspection: Yes normal to inspection Palpation (GI): Soft to palpation, not firm, nontender and no guarding Percussion: Yes normal to percussion Skin General skin exam: no rashes or lesions noted and elasticity normal Neuro Other: Patient follows simple commands she is lethargic, easily arousable Course Reevaluation(s) Reevaluation #1: Heart rate is coming down at this time a is about 135 from 170, more awake Time: 16:48 Reevaluation #2: Doing much better flu was positive, she receive IV antibiotic at arrival because she presented with extremely high fever and tachycardia and flu test was not available at this point patient does no need for antibiotic Time: 20:29 Medications Administered Generic Name Dose Route Start Last Admin Trade Name Freq PRN Reason Stop Dose Admin Oseltamivir Phosphate 75 mg 05/20/22 21:00 05/20/22 21:32 Oseltamivir Phosphate 75 Mg Capsule PO 75 mg BID MILTON Administration Sodium Chloride 3 ml 05/21/22 00:00 05/20/22 22:37 0.9 % Sodium Chloride Flush 3 Ml Syringe IVFLUSH 3 ml QSHIFT MILTON Administration Discontinued Medications Generic Name Dose Route Start Last Admin Trade Name Carli PRN Reason Stop Dose Admin Sodium Chloride 1,650 mls @ 1,650 mls/hr 05/20/22 16:02 05/20/22 17:20 Ns 30 ml/kg infuse over 1 hr (1650 ml) 05/20/22 17:01 Infused IV Infusion .Q1H STA Piperacillin Sod/Tazobactam 100 mls @ 200 mls/hr 05/20/22 16:09 05/20/22 17:05 Sod 4.5 gm/ Sodium Chloride IV 05/20/22 16:38 Infused ONCE ONE Infusion Acetaminophen 1,000 mg in 100 mls @ 400 mls/hr 05/20/22 16:10 05/20/22 16:49 Ofirmev IV 05/20/22 16:24 Infused ONCE ONE Infusion Vancomycin HCl 1,000 mg/ 270 mls @ 270 mls/hr 05/20/22 16:11 05/20/22 18:11 Sodium Chloride IV 05/20/22 17:10 Infused ONCE ONE Infusion Sodium Chloride 1,000 mls @ 999 mls/hr 05/20/22 17:15 05/20/22 18:11 Ns IVCONT 05/20/22 18:15 Infused .Q1H1M MILTON Infusion Sodium Chloride 1,000 mls @ 999 mls/hr 05/20/22 20:17 05/20/22 22:36 Ns IV 05/20/22 21:17 Infused .Q1H1M ONE Infusion Medical Decision Making Medical Decision Making Differential Diagnoses: Differential diagnosis (Differential diagnosis is broad including sepsis with fever of 106 and tachycardia at 158, pneumonia, perforated bowel, COVID) Differential Diagnosis: The differential diagnosis associated with the patient?s presentation includes: Discussion of management with other physician/healthcare provider/other source (e.g., hospitalist, oracle fusion consultant, behavioral health): Discussion w/other physician/healthcare provider Management of the patient was discussed with: Hospitalist My interpretation is Independent interpretation of EKG, rhythm strip, radiology study: Independent interp EKG,rhythm strip, radiology study I performed an independent interpretation of the: EKG My interpretation is EKG was reviewed personally by me sinus tachycardia rate [address]-T changes Discussion of test interpretation with radiology: Discussion of test interpretation with radiology Discussed with radiology regarding test interpretation. EXAMINATION: XR CHEST CLINICAL INFORMATION: Chest pain. COMPARISON: Chest x-ray 05/07/2022 TECHNIQUE: Frontal portable view of the chest was obtained. 2248 hours FINDINGS: No significant abnormality is noted involving the heart, lungs, mediastinum, bony thorax or soft tissues. XR/XR chest 1V IMPRESSION: Unremarkable examination. ? Dictated By: Yrn Patel MD Signed By: <Electronically signed by Yrn Patel MD in OV> 05/20/222303 DD/ 50 Independent historian (e.g., spouse, EMS, friend): Independent historian (e.g., spouse, EMS, friend) (daughter and son) Critical Care Time Critical Care Time Critical Care Time: Yes Total Critical Care Time: 60 Attestation: Fever 106 tachycardia 158, speaking with the family, taking care of the patient, speaking with the nurse, and with the EMS Discharge Plan Discharge Clinical Impression: Influenza, Tachycardia Patient Disposition: Admitted As Inpatient Interventions: Admission Worksheet (ED) Last Done: 05/20/22 21:22 Discharge Date/Time: 05/20/22 21:45
[2022-05-20 16:44] LABS: INTERNATIONAL NORM RATIO 5.1 (0.9-1.1)
[2022-05-20 16:50] LABS: Lactic Acid 2.2 mmol/L (0.5-2.0)
[2022-05-20 16:51] LABS: Alanine Aminotransferase 15 U/L (0-31); Albumin Level 3.8 g/dL (3.5-5.0); Alkaline Phosphatase 96 U/L (39-117); Anion Gap 15 (12-20); Aspartate Amino Transferase 27 U/L (5-31); Bilirubin Total 0.3 mg/dL (0.0-1.0); Blood Urea Nitrogen 11 mg/dL (9-16); Calcium 8.4 mg/dL (8.4-10.2); Carbon Dioxide 22 mmol/L (22-29); Chloride 105 mmol/L (96-108); Creatinine Clr Calc Pharmacy 30.9; Estimated Glomerular Filt Rate 50; Glucose Random 159 mg/dL (60-115); Potassium 4.8 mmol/L (3.3-5.1); Sodium 137 mmol/L (135-145); Total Protein 7.9 g/dL (6.5-8.0)
[2022-05-20 16:52] LABS: Troponin-I High Sensitivity 24.5 ng/L (<3.5-17.0)
[2022-05-20] MEDS: vancomycin HCL 1,000 MG in 0.9 % Sodium Chloride 250 ML 270 MG IV (17:05)
[2022-05-20] MEDS: 0.9 % Sodium Chloride 1,000 ML 999 ML IVCONT (17:06)
[2022-05-20 17:30] LABS: Influenza A PCR POSITIVE (Negative); Influenza B PCR NEGATIVE (Negative); Resp Syncy Virus RNA Qual PCR NEGATIVE (Negative); SARS COV2 PCR INHOUSE NEGATIVE (Negative)
[2022-05-20 18:18] LABS: Reflex Lactate? Lactic Acid Added
[2022-05-20 18:50] LABS: ~Lactic Acid-LAB USE ONLY 0.9 mmol/L (0.5-2.0)
--- NOTE | 2022-05-20 19:04 | PHA.MEDREC ---
med rec complete, information from family member Pharmacy Consult ? Medication Reconciliation Pharmacy has completed the medication reconciliation.
--- NOTE | 2022-05-20 19:42 | PC.NURSE ---
Pt remais febrile per rectal temp. Too soon to give to give Tylenol again. 1st attemp to give report to [facility] made. Floor RN Heidi notified via [facility]
--- NOTE | 2022-05-20 20:05 | P.HPHOSP_ITS ---
History of Present Illness Date of Service: 05/20/22 Chief Complaint: Lethargy This is a 81-year-old female with pertinent history of colon cancer, recurrent lung cancer, COPD, history of PE on warfarin, gastroesophageal reflux disease who was brought to the emergency department by family for evaluation of decreas ed mentation. As per the daughter at bedside, patient with decreased mentation over the last 2 days. At the time of my evaluation, patient only eye opening to verbal stimulus. The daughter states patient also has been having associated fevers and chills. Also experience nausea with episodes of nonbloody emesis. Also noted to have loose stools. Daughter states that patient does have a history of recurrent UTI. Unable to obtain review of systems from the patient. Patient was diagnosed with colon cancer about a month ago and has refused surgery for the same. She has a history of lung cancer status post resection but now with recurrence. Has not undergone radiation therapy for recurrence lung cancer In the emergency department, patient was found to be in sepsis. Influenza A was positive and urine concerning for UTI Review of Systems Review of Systems: ROS as obtained from daughter Constitutional: Constitutional: Reports chills, Reports daytime sleepiness, Reports fever(s), Reports lethargy, Reports malaise and Reports poor appetite Cardiovascular: Cardiovascular: Reports no additional cardiovascular complaints Respiratory: Respiratory: Reports no additional respiratory complaints Gastrointestinal: Gastrointestinal: Reports no additional gastrointestinal complaints Genitourinary: Genitourinary: Reports difficulty voiding Neurologic: Reports confusion Psychiatric: Psychiatric: Reports confusion [facility] Medical History Anxiety Back pain BPV (benign positional vertigo) Carpal tunnel syndrome Compression fracture of L1 lumbar vertebra COPD (chronic obstructive pulmonary disease) Diverticular disease GERD (gastroesophageal reflux disease) History of primary malignant neoplasm of left lung (~2014) History of pulmonary embolism (~2013) Hypercholesterolemia Hypertension Low vitamin D level Osteoporosis (~2007) Family History Son No problems noted. Daughter No problems noted. Mother No problems noted. Father No problems noted. Surgical History History of ankle surgery History of cataract surgery History of colonoscopy History of esophagogastroduodenoscopy (EGD) History of hemiarthroplasty of right hip (~2020) History of kyphoplasty (~2017) History of lobectomy of lung (~2014) History of lung biopsy (~2021) Social History Household Members: Family Housing: House Alcohol intake: never Patient Tobacco Use Status: Former Tobacco user Quit Date: 20 years ago e-Cigarette/Vaping Use: Never Used Second Hand Smoke Exposure: No Advance Directives: Yes Advance Directives on File: Yes Advance Directives Date on File: 04/12/22 service: No Current occupational status: retired Cognitive needs: Yes (wheelchair) Hearing needs: No Vision needs: Yes (Glasses) Meds Allergies Allergy/AdvReac Type Severity Reaction Status Date / Time No Known Allergies Allergy Verified 05/08/22 08:57 Active Medications: Current Medications Acetaminophen (Acetaminophen 325 Mg Tablet) 650 mg PO Q6H PRN PRN Reason: Pain, Mild (Pain Scale 1-3) Ceftriaxone Sodium 1 gm/ (Sodium Chloride) 50 mls @ 100 mls/hr IV DAILY [facility] Melatonin (Melatonin 3 Mg Tablet) 6 mg PO BEDTIME PRN PRN Reason: Insomnia Ondansetron HCl (Ondansetron Hcl 4 Mg/2 Ml Vial) 4 mg IVPUSH Q8H PRN PRN Reason: Nausea and Vomiting Oseltamivir Phosphate (Oseltamivir Phosphate 75 Mg Capsule) 75 mg PO BID [facility] Pharmacy Consult (Consult Rx Vancomycin Dosing) 1 each MISCELLANE DAILY PRN PRN Reason: Consult order Pharmacy Consult (Consult Rx Perform Med Rec) 1 each MISCELLANE ONCE PRN PRN Reason: Consult order Pharmacy Consult (Consult Rx Perform Med Rec) 1 each MISCELLANE ONCE PRN PRN Reason: Consult order Sodium Chloride (0.9 % Sodium Chloride Flush 3 Ml Syringe) 3 ml IVFLUSH QSHIFT [facility] Home Medications Medication Instructions Recorded Confirmed Last Taken Type acetaminophen 650 mg 650 mg PO Q8H PRN Pain (Scale 05/23/20 05/20/22 Unknown Hi story tablet,extended release (Tylenol Score 1-3) Arthritis Pain) fluticasone 500 mcg-salmeterol 50 1 inh inhalation BID 05/23/20 05/20/22 Unknown History mcg/dose blistr powdr for inhalation (Advair Diskus) metoprolol tartrate 25 mg tablet 25 mg PO DAILY 05/20/22 05/20/22 Unknown History warfarin 5 mg tablet 5 mg PO DAILY 05/20/22 05/20/22 Unknown History Physical Exam Vital Signs and Narrative: Vital Signs: Last Vital Signs Temp 101.7 F H 05/20/22 19:23 Pulse 126 H 05/20/22 19:23 Resp 15 05/20/22 19:23 BP 100/47 L 05/20/22 19:23 Pulse Ox 95 05/20/22 19:23 O2 Del Method 05/20/22 19:23 BMI result Body Mass Index 25.3 Elderly female lying in bed in no distress Neck supple, no JVD Regular rate and rhythm, S1-S2 heard Decreased breath sound at bases Abdomen soft nontender, no guarding, no rigidity Patient is drowsy and only eye opening to verbal stimulus Const: General: confusion Orientation/consciousness: confusion Neuro: General: confusion Results Labs CBC and Chem 7: 05/20/22 16:11 05/20/22 16:11 Labs: Laboratory Results - last 24 hr 05/20/22 05/20/22 05/20/22 16:11 16:11 16:11 MCV 89.2 MCH 28.3 MCHC 31.7 RDW 13.6 Plt Count 210 MPV 10.6 Immature Gran % (Auto) 0.3 Neut % (Auto) 83.4 H Lymph % (Auto) 14.7 L [place] % (Auto) 1.0 L Eos % (Auto) 0.3 Baso % (Auto) 0.3 Lymph # (Auto) 1.0 L [place] # (Auto) 0.1 Eos # (Auto) 0.0 Baso # (Auto) 0.0 Abs Immat Gran (auto) 0.02 Absolute Neuts (auto) 5.8 Absolute Nucleated RBC 0.000 Nucleated RBC % (auto) 0.0 PT 63.1 H INR 5.1 H* D Anion Gap 15 Estim Creat Clear Calc 30.9 Estimated GFR 50 Random Glucose 159 H Lactic Acid Lactic Acid F/U @ 2Hr Calcium 8.4 Total Bilirubin 0.3 AST 27 ALT 15 Alkaline Phosphatase 96 Troponin I High Sens Total Protein 7.9 Albumin 3.8 Urine Color Urine Appearance Urine pH Ur Specific [place] Urine Protein Urine Glucose (UA) Urine Ketones Urine Blood Urine Nitrite Ur Leukocyte Esterase Urine RBC Urine WBC Ur Squamous Epith Cells Urine Bacteria Hyaline Casts Influenza Type A (PCR) Influenza Type B (PCR) RSV RNA Qual (PCR) SARS-CoV-2 RNA (RT-PCR) 05/20/22 05/20/22 05/20/22 16:11 16:11 16:24 MCV MCH MCHC RDW Plt Count MPV Immature Gran % (Auto) Neut % (Auto) Lymph % (Auto) [place] % (Auto) Eos % (Auto) Baso % (Auto) Lymph # (Auto) [place] # (Auto) Eos # (Auto) Baso # (Auto) Abs Immat Gran (auto) Absolute Neuts (auto) Absolute Nucleated RBC Nucleated RBC % (auto) PT INR Anion Gap Estim Creat Clear Calc Estimated GFR Random Glucose Lactic Acid 2.2 H* Lactic Acid F/U @ 2Hr Calcium Total Bilirubin AST ALT Alkaline Phosphatase Troponin I High Sens 24.5 H D Total Protein Albumin Urine Color Urine Appearance Urine pH Ur Specific [place] Urine Protein Urine Glucose (UA) Urine Ketones Urine Blood Urine Nitrite Ur Leukocyte Esterase Urine RBC Urine WBC Ur Squamous Epith Cells Urine Bacteria Hyaline Casts Influenza Type A (PCR) POSITIVE A Influenza Type B (PCR) NEGATIVE RSV RNA Qual (PCR) NEGATIVE SARS-CoV-2 RNA (RT-PCR) NEGATIVE 05/20/22 05/20/22 16:24 18:27 MCV MCH MCHC RDW Plt Count MPV Immature Gran % (Auto) Neut % (Auto) Lymph % (Auto) [place] % (Auto) Eos % (Auto) Baso % (Auto) Lymph # (Auto) [place] # (Auto) Eos # (Auto) Baso # (Auto) Abs Immat Gran (auto) Absolute Neuts (auto) Absolute Nucleated RBC Nucleated RBC % (auto) PT INR Anion Gap Estim Creat Clear Calc Estimated GFR Random Glucose Lactic Acid Lactic Acid F/U @ 2Hr 0.9 Calcium Total Bilirubin AST ALT Alkaline Phosphatase Troponin I High Sens Total Protein Albumin Urine Color Yellow Urine Appearance Cloudy Urine pH 6.5 Ur Specific [place] 1.010 Urine Protein 30 (1+) H Urine Glucose (UA) Negative Urine Ketones 15 Urine Blood Moderate (2+) H Urine Nitrite Negative Ur Leukocyte Esterase Large (3+) H Urine RBC 11-20 H Urine WBC >50 H Ur Squamous Epith Cells 0-2 Urine Bacteria 4+ Hyaline Casts 3-5 Influenza Type A (PCR) Influenza Type B (PCR) RSV RNA Qual (PCR) SARS-CoV-2 RNA (RT-PCR) Imaging Radiologist's Impressions: Impressions Chest X-Ray 05/20/22 16:15 FINDINGS/IMPRESSION: The study is significantly limited by portable technique and low lung volumes. Bilateral patchy interstitial prominence appears grossly similar compared with January 24, 2022. Bibasilar linear densities suggest atelectasis and/or fibrotic changes appear similar as well. An approximately 1 cm left apical nodular density appears unchanged. No consolidation, effusion, or pneumothorax is seen. The cardiac silhouette is poorly evaluated. The aorta is mildly atherosclerotic. The patient is status post kyphoplasty or vertebral plasty of the lower thoracic vertebral body. Assessment and Plan (1) Metabolic encephalopathy: Status: Acute (2) Influenza: Status: Acute (3) UTI (urinary tract infection): Status: Acute (4) Colonic mass: Status: Acute (5) Mass of left lung: Status: Acute (6) History of primary malignant neoplasm of left lung: Status: Acute (7) COPD (chronic obstructive pulmonary disease): Qualifiers: COPD type: emphysema Emphysema type: panlobular Qualified Code(s): J43.1 - Panlobular emphysema Status: Acute (8) History of pulmonary embolism: Status: Acute (9) Current use of anticoagulant therapy: Status: Acute (10) GERD (gastroesophageal reflux disease): Qualifiers: Esophagitis presence: without esophagitis Qualified Code(s): K21.9 - Gastro-esophageal reflux disease without esophagitis Status: Acute Plan This is a 81-year-old female with pertinent history of colon cancer, recurrent lung cancer, COPD, history of PE on warfarin, gastroesophageal reflux disease who was brought to the emergency department by family for evaluation of decreased mentation. #. Acute metabolic encephalopathy due to: #. Sepsis secondary to UTI plus Influenza A -will admit patient with isolation precautions. Initiating empiric Rocephin 1 g daily. Also initiating Tamiflu. Resuscitated with IV crystalloids in the ER. Obtain lactic acid and blood cultures. Follow urine culture -monitor mentation with above treatment #. History of lung cancer status post resection now with recurrence -radiotherapy was discussed outpatient but patient has not undergone any session yet. Is followed by Dr. Casper #. Adenocarcinoma of the colon -refused surgery as an outpatient #. Diarrhea -could be due to viral infection. ordered stool studies. #. Type A lactic acidosis -trended down with IV fluid resuscitation #. Coagulopathy -due to sepsis and warfarin use. Holding warfarin for now. Repeat INR in a.m. #. Elevated troponin: Likely type 2 in the setting of increased demand #. History of PE: Holding warfarin as above. Resume as appropriate #. COPD: Continue home inhalers. Med rec pending DVT prophylaxis: Resume coumadin when appropriate DNR/DNI. Discussed with daughter at bedside NPO until mentation improves Quality Stroke Does the patient have a stroke diagnosis?: No VTE Prior VTE?: Yes VTE Risk Level:: Medical - moderate - high VTE Device Contraindication: Treatment Not Indicated VTE Drug Contraindication: Treatment Not Indicated
--- NOTE | 2022-05-20 20:28 | PC.NURSE ---
obie call to [facility] for report, could not get ahold of JAVIER Torres
[2022-05-20] MEDS: 0.9 % Sodium Chloride 1,000 ML 999 ML IV (20:35)
--- NOTE | 2022-05-20 20:56 | PC.NURSE ---
Report called to pickle processor on [facility]
[2022-05-20] MEDS: Oseltamivir Phosphate 75 MG CAPSULE PO (21:32)
[2022-05-20] MEDS: 0.9 % Sodium Chloride Flush 3 ML SYRINGE IVFLUSH (22:37)
[2022-05-21] VITALS (7 sets, daily range): BP systolic 91–140; BP diastolic 52–68; PULSE 81–113; RESP 12–18; TEMP 36.6–37.1; O2SAT 98–99
[2022-05-21] MEDS: 0.9 % Sodium Chloride 1,000 ML 999 ML IV (04:03)
[2022-05-21] MEDS: Acetaminophen 325 MG TABLET 650 MG PO ×3 (04:45→22:56)
[2022-05-21 08:14] LABS: MANUAL DIFF FLAG NO
[2022-05-21] MEDS: cefTRIAXone sodium 1 GM in 0.9 % Sodium Chloride 50 ML IV (08:23)
[2022-05-21] MEDS: 0.9 % Sodium Chloride Flush 3 ML SYRINGE IVFLUSH ×3 (08:23→21:07)
[2022-05-21] MEDS: Oseltamivir Phosphate 75 MG CAPSULE PO ×2 (08:23→21:06)
[2022-05-21 08:24] LABS: Basophils Percent Auto 0.2 % (0-2); Eosinophils Percent Auto 0.1 % (0-4); Hematocrit 23.9 % (37.0-47.0); Imm Gran Abs Auto 0.05 X10*3/uL (0.00-0.03); Imm Gran Pct Auto 0.4 % (0.0-0.4); Lymphocytes Absolute Auto 2.2 X10*3/uL (1.2-4.9); Lymphocytes Percent Auto 17.7 % (20-40); Mean Corpuscular HGB Conc 31.4 g/dl (31.0-35.0); Mean Corpuscular Hemoglobin 28.1 pg (27.0-33.0); Mean Corpuscular Volume 89.5 fL (80.0-98.0); Mean Platelet Volume 10.8 fL (9.4-12.3); Monocytes Absolute Auto 0.9 X10*3/uL (0.1-1.2); Neutrophils Absolute Auto 9.4 x10*3/uL (2.0-8.3); Neutrophils Percent Auto 74.6 % (45-73); Platelet Count 164 X10*3/uL (160-400); Red Blood Count 2.67 X10*6/uL (4.20-5.50); Red Cell Distribution Width 14.1 % (11.0-16.0); White Blood Count 12.7 X10*3/uL (4.8-10.8)
[2022-05-21 08:28] LABS: Prothrombin Time 92.2 SEC (10.0-13.1)
[2022-05-21 08:37] LABS: Hemoglobin 7.5 g/dl (12.0-16.0); INTERNATIONAL NORM RATIO 7.4 (0.9-1.1)
[2022-05-21 08:39] LABS: Anion Gap 9 (12-20); Blood Urea Nitrogen 10 mg/dL (9-16); Calcium 7.1 mg/dL (8.4-10.2); Carbon Dioxide 20 mmol/L (22-29); Chloride 117 mmol/L (96-108); Estimated Glomerular Filt Rate > 60; Glucose Random 76 mg/dL (60-115); Potassium 3.9 mmol/L (3.3-5.1); Sodium 142 mmol/L (135-145)
--- NOTE | 2022-05-21 09:04 | MHC.CM.PN ---
IMM Female 81 DX UTI, FLU A Tachycardia She lives with her son. He is her [employer]. She is not ambulatory. Family is able to transfer pt to . Dtr Ramon provides transport to MD appointments. A HCP is on file. 1st HCP is Shree Brice. The alternate HCPn is Shree Razo. Patient has been vaccinated x2 for covid . Moderna was the brand that the patient received. DP home with resumption of [employer]. Family will provide transportation home. The patient is on A/C therapy.
--- NOTE | 2022-05-21 16:46 | P.PNIM_ITS ---
Subjective Subjective Date of Service: 05/21/22 Interval History: Seen in f/u for influenza related, encephalopathy interval history: doing better, no sob, no fever Physical Exam Vital Signs: Vital Signs: Last Vital Signs Temp 97.9 F 05/21/22 15:26 Pulse 86 05/21/22 15:26 Resp 18 05/21/22 15:26 BP 114/58 L 05/21/22 15:26 Pulse Ox 98 05/21/22 15:26 O2 Del Method 05/21/22 15:26 BMI result Body Mass Index 26.4 Objective Data Active Medications Acetaminophen (Acetaminophen 325 Mg Tablet) 650 mg PO Q6H PRN PRN Reason: Pain, Mild (Pain Scale 1-3) Last Admin: 05/21/22 14:37 Dose: 650 mg Documented By: BEATRIZ Acetaminophen (Acetaminophen Supp 650 Mg Supp.Rect) 650 mg [place] Q4H PRN PRN Reason: Fever Albuterol/Ipratropium (Albuterol/Iprat 2.5/0.5mg 3 Ml Ampul.Neb) 3 ml INHALE RQ4H PRN PRN Reason: wheezing Ceftriaxone Sodium 1 gm/ (Sodium Chloride) 50 mls @ 100 mls/hr IV DAILY [facility] Last Infusion: 05/21/22 09:04 Dose: 0 mls/hr Documented By: BEATRIZ Melatonin (Melatonin 3 Mg Tablet) 6 mg PO BEDTIME PRN PRN Reason: Insomnia Ondansetron HCl (Ondansetron Hcl 4 Mg/2 Ml Vial) 4 mg IVPUSH Q8H PRN PRN Reason: Nausea and Vomiting Oseltamivir Phosphate (Oseltamivir Phosphate 75 Mg Capsule) 75 mg PO BID [facility] Last Admin: 05/21/22 08:23 Dose: 75 mg Documented By: BEATRIZ Pharmacy Consult (Consult Rx Vancomycin Dosing) 1 each MISCELLANE DAILY PRN PRN Reason: Consult order Pharmacy Consult (Consult Rx Perform Med Rec) 1 each MISCELLANE ONCE PRN PRN Reason: Consult order Pharmacy Consult (Consult Rx Perform Med Rec) 1 each MISCELLANE ONCE PRN PRN Reason: Consult order Sodium Chloride (0.9 % Sodium Chloride Flush 3 Ml Syringe) 3 ml IVFLUSH QSHIFT [facility] Last Admin: 05/21/22 08:23 Dose: 3 ml Documented By: BEATRIZ Labs CBC & Chem 7: 05/21/22 07:18 05/21/22 07:18 Labs: Laboratory Results - last 24 hr 05/20/22 05/20/22 05/20/22 16:11 16:11 16:11 MCV MCH MCHC RDW Plt Count MPV Immature Gran % (Auto) Neut % (Auto) Lymph % (Auto) [place] % (Auto) Eos % (Auto) Baso % (Auto) Lymph # (Auto) [place] # (Auto) Eos # (Auto) Baso # (Auto) Abs Immat Gran (auto) Absolute Neuts (auto) Absolute Nucleated RBC Nucleated RBC % (auto) PT INR Anion Gap 15 Estim Creat Clear Calc 30.9 Estimated GFR 50 Random Glucose 159 H Lactic Acid 2.2 H* Lactic Acid F/U @ 2Hr Calcium 8.4 Total Bilirubin 0.3 AST 27 ALT 15 Alkaline Phosphatase 96 Troponin I High Sens 24.5 H D Total Protein 7.9 Albumin 3.8 Influenza Type A (PCR) Influenza Type B (PCR) RSV RNA Qual (PCR) SARS-CoV-2 RNA (RT-PCR) 05/20/22 05/20/22 05/21/22 16:24 18:27 07:18 MCV MCH MCHC RDW Plt Count MPV Immature Gran % (Auto) Neut % (Auto) Lymph % (Auto) [place] % (Auto) Eos % (Auto) Baso % (Auto) Lymph # (Auto) [place] # (Auto) Eos # (Auto) Baso # (Auto) Abs Immat Gran (auto) Absolute Neuts (auto) Absolute Nucleated RBC Nucleated RBC % (auto) PT 92.2 H INR 7.4 H* D Anion Gap Estim Creat Clear Calc Estimated GFR Random Glucose Lactic Acid Lactic Acid F/U @ 2Hr 0.9 Calcium Total Bilirubin AST ALT Alkaline Phosphatase Troponin I High Sens Total Protein Albumin Influenza Type A (PCR) POSITIVE A Influenza Type B (PCR) NEGATIVE RSV RNA Qual (PCR) NEGATIVE SARS-CoV-2 RNA (RT-PCR) NEGATIVE 05/21/22 05/21/22 07:18 07:18 MCV 89.5 MCH 28.1 MCHC 31.4 RDW 14.1 Plt Count 164 MPV 10.8 Immature Gran % (Auto) 0.4 Neut % (Auto) 74.6 H Lymph % (Auto) 17.7 L [place] % (Auto) 7.0 Eos % (Auto) 0.1 Baso % (Auto) 0.2 Lymph # (Auto) 2.2 [place] # (Auto) 0.9 Eos # (Auto) 0.0 Baso # (Auto) 0.0 Abs Immat Gran (auto) 0.05 H Absolute Neuts (auto) 9.4 H Absolute Nucleated RBC 0.000 Nucleated RBC % (auto) 0.0 PT INR Anion Gap 9 L Estim Creat Clear Calc 44.0 Estimated GFR > 60 Random Glucose 76 Lactic Acid Lactic Acid F/U @ 2Hr Calcium 7.1 L D Total Bilirubin AST ALT Alkaline Phosphatase Troponin I High Sens Total Protein Albumin Influenza Type A (PCR) Influenza Type B (PCR) RSV RNA Qual (PCR) SARS-CoV-2 RNA (RT-PCR) Microbiology Microbiology Results: Microbiology 05/20/22 17:36 Urine Culture - Preliminary Urine clean catch - Urine garcia top Gram negative chema 05/20/22 16:39 Blood Culture - Preliminary Blood - Venous Prelim: GNR Gram Stain only 05/20/22 16:11 Blood Culture - Preliminary Blood - Venous Prelim: GNR Gram Stain only Assessment and Plan (1) Metabolic encephalopathy: Status: Acute (2) UTI (urinary tract infection): Status: Acute Plan 81-year-old female with pertinent history of colon cancer, recurrent lung cancer, COPD, history of PE on warfarin, gastroesophageal reflux disease who was brought to the emergency department by family for evaluation of decreased mentation. #Acute metabolic encephalopathy due to: #Sepsis secondary to UTI plus Influenza A Standard +Droplet precaution for influezen Empiric Rocephin 1 g daily. 5 days of Tamiflu. Ceftriaxone for UTI # History of lung cancer status post resection now with recurrence -radiotherapy was discussed outpatient but patient has not undergone any session yet. Is followed by Dr. Casper #. Adenocarcinoma of the colon -refused surgery as an outpatient #. Diarrhea -could be due to viral infection. ordered stool studies. #. Type A lactic acidosis -trended down with IV fluid resuscitation #. Coagulopathy -due to sepsis and warfarin use. Holding warfarin for now. Repeat INR in a.m. #. Elevated troponin: Likely type 2 in the setting of increased demand #. History of PE: Holding warfarin as above. Resume as appropriate. Vit K 2.5 #. COPD: Continue home inhalers. Med rec pending DVT prophylaxis: Resume coumadin when appropriate DNR/DNI. Discussed with daughter at bedside NPO until mentation improves Quality Stroke Does the patient have a stroke diagnosis?: No VTE Prior VTE?: Yes VTE Risk Level:: Medical - moderate - high VTE Device Contraindication: Treatment Not Indicated VTE Drug Contraindication: Treatment Not Indicated
[2022-05-21] MEDS: Phytonadione (Vit K1) Oral 10 MG/ML AMPUL 2.5 MG PO (16:57)
[2022-05-21] MEDS: Albuterol/Iprat 2.5/0.5MG 3 ML AMPUL.NEB INHALE (17:50)
[2022-05-22] VITALS (7 sets, daily range): BP systolic 121–163; BP diastolic 60–82; PULSE 75–108; RESP 17–20; TEMP 36.1–37.2; O2SAT 96–99
[2022-05-22] MEDS: Acetaminophen 325 MG TABLET 650 MG PO (08:07)
[2022-05-22] MEDS: 0.9 % Sodium Chloride Flush 3 ML SYRINGE IVFLUSH ×3 (08:07→21:51)
[2022-05-22] MEDS: Oseltamivir Phosphate 75 MG CAPSULE PO ×2 (08:07→21:48)
[2022-05-22] MEDS: cefTRIAXone sodium 1 GM in 0.9 % Sodium Chloride 50 ML IV (08:08)
[2022-05-22] MEDS: Albuterol/Iprat 2.5/0.5MG 3 ML AMPUL.NEB INHALE (10:37)
--- NOTE | 2022-05-22 11:16 | P.PNIM_ITS ---
Subjective Subjective Date of Service: 05/22/22 Interval History: Seen in f/u for influenza related, encephalopathy interval history: doing better, no sob, no fever, normal O2 on room air Review of Systems no fever or chills Physical Exam Vital Signs: Vital Signs: Last Vital Signs Temp 97.8 F 05/22/22 10:46 Pulse 108 H 05/22/22 10:46 Resp 20 05/22/22 10:46 BP 149/70 H 05/22/22 10:46 Pulse Ox 98 05/22/22 10:46 O2 Del Method 05/22/22 10:46 BMI result Body Mass Index 26.4 Const: Other: General: AO X 2, no acute distress Resp: CTA bilateral CVS: S1,S2,RRR GI: +BS, NT, no distention Skin: No rash Neuro: motor grossly intact Psych: appropriate affect Objective Data Active Medications Acetaminophen (Acetaminophen 325 Mg Tablet) 650 mg PO Q6H PRN PRN Reason: Pain, Mild (Pain Scale 1-3) Last Admin: 05/22/22 08:07 Dose: 650 mg Documented By: ROSALIE Acetaminophen (Acetaminophen Supp 650 Mg Supp.Rect) 650 mg [place] Q4H PRN PRN Reason: Fever Albuterol Sulfate (Albuterol Sulfate 90 Mcg 8 Gm Inhaler) 2 puff INHALE Q4H PRN PRN Reason: Shortness Of Breath Albuterol/Ipratropium (Albuterol/Iprat 2.5/0.5mg 3 Ml Ampul.Neb) 3 ml INHALE RQ4H PRN PRN Reason: wheezing Last Admin: 05/22/22 10:37 Dose: 3 ml Documented By: MIGEL Cyanocobalamin (Cyanocobalamin (Vitamin B-12) 1,000 Mcg Tablet) 1,000 mcg PO DAILY [place] Famotidine (Famotidine 20 Mg Tablet) 20 mg PO BID [place] Folic Acid (Folic Acid 1 Mg Tablet) 1 mg PO DAILY [place] Ceftriaxone Sodium 1 gm/ (Sodium Chloride) 50 mls @ 100 mls/hr IV DAILY [place] Last Infusion: 05/22/22 08:41 Dose: 0 mls/hr Documented By: ROSALIE Meclizine HCl (Meclizine Hcl 25 Mg Tablet) 25 mg PO DAILY [place] Melatonin (Melatonin 3 Mg Tablet) 6 mg PO BEDTIME PRN PRN Reason: Insomnia Metoprolol Tartrate (Metoprolol Tartrate 25 Mg Tablet) 25 mg PO DAILY [facility]; Protocol Non-Formulary Medication (Diclofenac Sodium [Voltaren]) 4 gm TOPICAL QID [facility] Non-Formulary Medication (Fluticasone Propion-Salmeterol [Advair Diskus]) 1 inhalation INHALE BID [facility] Non-Formulary Medication (Acetaminophen [Tylenol Arthritis Pain]) 650 mg PO Q8H PRN PRN Reason: Pain (Scale Score 1-3) Ondansetron HCl (Ondansetron Hcl 4 Mg/2 Ml Vial) 4 mg IVPUSH Q8H PRN PRN Reason: Nausea and Vomiting Oseltamivir Phosphate (Oseltamivir Phosphate 75 Mg Capsule) 75 mg PO BID [facility] Last Admin: 05/22/22 08:07 Dose: 75 mg Documented By: ROSALIE Pharmacy Consult (Consult Rx Vancomycin Dosing) 1 each MISCELLANE DAILY PRN PRN Reason: Consult order Pharmacy Consult (Consult Rx Perform Med Rec) 1 each MISCELLANE ONCE PRN PRN Reason: Consult order Pharmacy Consult (Consult Rx Perform Med Rec) 1 each MISCELLANE ONCE PRN PRN Reason: Consult order Polyethylene Glycol (Polyethylene Glycol 3350 17 Gm Powd.Pack) 17 gm PO BID [facility] Sodium Chloride (0.9 % Sodium Chloride Flush 3 Ml Syringe) 3 ml IVFLUSH QSHIFT [facility] Last Admin: 05/22/22 08:07 Dose: 3 ml Documented By: ROSALIE Labs CBC & Chem 7: 05/21/22 07:18 05/21/22 07:18 Microbiology Microbiology Results: Microbiology 05/20/22 16:39 Blood Culture - Preliminary Blood - Venous Gram negative chema 05/20/22 16:11 Blood Culture - Preliminary Blood - Venous Gram negative chema 05/20/22 17:36 Urine Culture - Final Urine clean catch - Urine garcia top Escherichia coli Assessment and Plan (1) UTI (urinary tract infection): Status: Acute (2) Metabolic encephalopathy: Status: Acute (3) Influenza: Status: Acute (4) Tachycardia: Status: Acute Plan 81-year-old female with pertinent history of colon cancer, recurrent lung cancer, COPD, history of PE on warfarin, gastroesophageal reflux disease who was brought to the emergency department by family for evaluation of decreased mentation. #Acute metabolic encephalopathy due to #Sepsis secondary to UTI plus Influenza A Standard +Droplet precaution for influezen 5 days of Tamiflu. E. coli UTI, sensitive to Rocephin--Change to Ceftin at discharge # History of lung cancer status post resection now with recurrence -radiotherapy was discussed outpatient but patient has not undergone any session yet. Is followed by Dr. Casper #Adenocarcinoma of the colon -refused surgery as an outpatient # Diarrhea--no further reported, stool study pending, but i don't think we need it # Type A lactic acidosis -trended down with IV fluid resuscitation # Coagulopathy -due to sepsis and warfarin use. Holding warfarin for now. Repeat INR in a.m. # Elevated troponin: Likely type 2 in the setting of increased demand # History of PE: Holding warfarin as above d/t high INR, got vit K 2.5 yesterday, check INR today # COPD: Continue home inhalers. Med rec pending DVT prophylaxis: Resume coumadin when appropriate DNR/DNI. Discussed with daughter at bedside NPO until mentation improves Dispo: probably home later today Quality Stroke Does the patient have a stroke diagnosis?: No VTE Prior VTE?: Yes VTE Risk Level:: Medical - moderate - high VTE Device Contraindication: Treatment Not Indicated VTE Drug Contraindication: Treatment Not Indicated
--- NOTE | 2022-05-22 11:28 | PM.DS ---
DS: Providers Provider Date of Service: 05/23/22 Date of admission: 05/20/22 19:07 Primary care physician: Unknown Physician DS: Diagnosis Discharge Diagnosis (1) UTI (urinary tract infection): Status: Acute (2) Metabolic encephalopathy: Status: Acute (3) Influenza: Status: Acute (4) Tachycardia: Status: Acute DS: Summary Hospital Course Hospital Course: Chief Complaint: Lethargy This is a 81-year-old female with pertinent history of colon cancer, recurrent lung cancer, COPD, history of PE on warfarin, gastroesophageal reflux disease who was brought to the emergency department by family for evaluation of decreased mentation.? As per the daughter at bedside, patient with decreased mentation over the last 2 days.? At the time of my evaluation, patient only eye opening to verbal stimulus.? The daughter states patient also has been having associated fevers and chills.? Also experience nausea with episodes of nonbloody emesis.? Also noted to have loose stools.? Daughter states that patient does have a history of recurrent UTI.? Unable to obtain review of systems from the patient.? Patient was diagnosed with colon cancer about a month ago and has refused surgery for the same.? She has a history of lung cancer status post resection but now with recurrence.? Has not undergone radiation therapy for recurrence lung cancer Hospital course: #Acute metabolic encephalopathy due to due to UTI and Influenze, back at her baseline #Sepsis secondary to UTI plus Influenzae, resolved #Influenza--normal respiratory effort, no fever, normal O2 sat. To complete 5 day course of Tamiflu E. coli UTI and Bacteremi sensitive to Ceftriaxone, likely urine source and will transition to Ceftin 500 bid x 14 days total. Presently afebrile and WBC normal; # History of lung cancer status post resection now with recurrence -radiotherapy was discussed outpatient but patient has not undergone any session yet.? Is followed by Dr. Casper #Adenocarcinoma of the colon -refused surgery as an outpatient. Outpatient follow up #? Diarrhea--no further reported, stool study pending, but i don't think we need it #? Type A lactic acidosis--resolved ?# Coumadin Coagulopathy-- -due to sepsis and warfarin use.? Holding warfarin for now.? Repeat INR in a.m. #? Elevated troponin:? Likely type 2 in the setting of increased demand #? History of PE: variable INR level, INR was high when she came in at 7 and given vitamin K went down to 1.4, given fluctuation transitioning to Eliquis #? COPD:? Continue home inhalers. No acute exacerbation #Tachycardia to continue Metoprolol Time Spent with Patient Time attestation: Total time spent providing and/or coordinating discharge services: Discharge coordination time: Greater than 30 minutes Quality: Safe Use of Opioids Does Pt have an Active Cancer Diagnosis on the Problem List?: Yes Opioid Measure Date for [facility] Report: 04/23/22 Opioid Measure Time for [facility] Report: 15:26 Quality: Stroke Does the patient have a stroke diagnosis?: No Physical Exam Vital Signs: Vital Signs: Last Vital Signs Temp 97.8 F 05/22/22 10:46 Pulse 108 H 05/22/22 10:46 Resp 20 05/22/22 10:46 BP 149/70 H 05/22/22 10:46 Pulse Ox 98 05/22/22 10:46 O2 Del Method 05/22/22 10:46 BMI result Body Mass Index 26.4 DS: Data Data Completed and Pending Completed studies during hospitalization [Text1]: Procedures Replacement of Right Hip Joint, Femoral Surface with Synthetic Substitute, Uncemented, Open Approach (06/22/20) Labs on day of discharge: Preliminary micro results at discharge 05/20/22 16:39 Blood Culture - Preliminary Blood - Venous Gram negative chema 05/20/22 16:11 Blood Culture - Preliminary Blood - Venous Gram negative chema Discharge Plan Discharge Anticipated Discharge Date/Time: 05/22/22 11:29 Patient Disposition: Home Health Service Discharge Diagnosis: Influenzea, E.coli bacteremia Referrals: [facility] [Other] - 1 Week ([facility] will resume home services) [facility] [Outside] - 1 Week Po,Rasheed Wong MD [Physician] - 1 Week Discharge Medications: New cefuroxime axetil 500 mg tablet 500 mg PO BID 11 Days Qty: 22 0RF Continued (DME) Hospital bed with air mattress See Rx Instructions .Route .MEDSUPPLY Qty: 1 0RF Rx Instructions: As directed albuterol sulfate 90 mcg/actuation HFA aerosol inhaler 2 puff INHALATION Q4H PRN (Reason: Shortness Of Breath) Qty: 8.5 0RF meclizine 25 mg tablet 25 mg PO DAILY Qty: 90 2RF enoxaparin [Lovenox] 60 mg/0.6 mL syringe 60 mg subcut Q24H Qty: 6 2RF tramadol 50 mg tablet 50 mg PO TID PRN (Reason: pain) 30 Days Qty: 90 1RF cyanocobalamin (vitamin B-12) [Vitamin B-12] 1,000 mcg Tablet 1,000 mcg PO DAILY Qty: 60 3RF folic acid 1 mg Tablet 1 mg PO DAILY Qty: 60 3RF warfarin 5 mg Tablet 5 mg PO DAILY metoprolol tartrate 25 mg tablet 25 mg PO DAILY acetaminophen [Tylenol Arthritis Pain] 650 mg tablet extended release 650 mg PO Q8H PRN (Reason: Pain (Scale Score 1-3)) fluticasone propion-salmeterol [Advair Diskus] 500-50 mcg/dose blister with device 1 inh inhalation BID Label Comments: last time filled was on 09/18/19 (DME) hospiptal bed See Rx Instructions .Route .MEDSUPPLY Qty: 1 0RF Rx Instructions: As directed diclofenac sodium [Voltaren] 1 % gel 4 g topical QID Qty: 3 0RF Rx Instructions: apply to single knee, ankle, foot; for foot includes sole/toes/top of foot famotidine 20 mg tablet 20 mg PO BID Qty: 60 2RF polyethylene glycol 3350 [Miralax] 17 gram/dose powder 17 g PO BID 30 Days Qty: 1020 0RF Discharge Orders: Discharge Order (Routine); Ordered 05/23/22 Ordered By: Rober Gilliland Diet: Advance to usual diet Activity on Discharge: As tolerated Stand Alone Forms: Patient Portal Discharge page Care Plan Goals: Full recovery from (influenza) Health Concerns: Influenze cancer high INR UTI Plan of Treatment: Take Tamiflu as directed and follow up with your Doctor in a week Take Cefuroxime for UTI Follow up with coumadin clinica and get INR adjusted Assessment: as above
[2022-05-22 12:20] LABS: INTERNATIONAL NORM RATIO 1.4 (0.9-1.1); Prothrombin Time 15.9 SEC (10.0-13.1)
[2022-05-22] MEDS: Folic Acid 1 MG TABLET PO (12:20)
[2022-05-22] MEDS: Famotidine 20 MG TABLET PO ×2 (12:20→21:48)
[2022-05-22] MEDS: Metoprolol Tartrate 25 MG TABLET PO (12:20)
--- NOTE | 2022-05-22 14:15 | MHC.CM.PN ---
Per MD rounds, Pt may discharge tomorrow. DP return home with resumption of [facility] [employer]. Patient family will provide transportation home.
[2022-05-22] MEDS: polyethylene glycoL 3350 17 GM POWD.PACK PO (21:48)
[2022-05-23 03:52] VITALS: BP 135/78; PULSE 78; RESP 16; TEMP 36.6; O2SAT 95
[2022-05-23] MEDS: Acetaminophen 325 MG TABLET 650 MG PO (06:12)
[2022-05-23 07:26] VITALS: BP 122/68; PULSE 81; RESP 18; TEMP 36.1; O2SAT 96
[2022-05-23 07:41] LABS: INTERNATIONAL NORM RATIO 1.1 (0.9-1.1); Prothrombin Time 12.7 SEC (10.0-13.1)
[2022-05-23] MEDS: Oseltamivir Phosphate 75 MG CAPSULE PO (08:47)
[2022-05-23] MEDS: Apixaban 5 MG TABLET PO (08:47)
[2022-05-23] MEDS: cefTRIAXone sodium 1 GM in 0.9 % Sodium Chloride 50 ML IV (08:47)
[2022-05-23] MEDS: Meclizine HCl 25 MG TABLET PO (08:47)
[2022-05-23] MEDS: Cyanocobalamin (Vitamin B-12) 1,000 MCG TABLET 1000 MCG PO (08:47)
[2022-05-23] MEDS: Folic Acid 1 MG TABLET PO (08:47)
[2022-05-23] MEDS: polyethylene glycoL 3350 17 GM POWD.PACK PO (08:47)
[2022-05-23] MEDS: Metoprolol Tartrate 25 MG TABLET PO (08:47)
[2022-05-23] MEDS: Famotidine 20 MG TABLET PO (08:47)
[2022-05-23] MEDS: 0.9 % Sodium Chloride Flush 3 ML SYRINGE IVFLUSH (08:51)
--- NOTE | 2022-05-23 11:40 | MHC.CM.PN ---
IMM 05/23/22 Patient is discharged home today. [facility] will resume home services. Family is providing transportation home.
[2022-05-23 12:23] LABS: Hematocrit 29.6 % (37.0-47.0); Hemoglobin 9.3 g/dl (12.0-16.0); Mean Corpuscular HGB Conc 31.4 g/dl (31.0-35.0); Mean Corpuscular Hemoglobin 27.4 pg (27.0-33.0); Mean Corpuscular Volume 87.3 fL (80.0-98.0); Mean Platelet Volume 10.2 fL (9.4-12.3); Platelet Count 230 X10*3/uL (160-400); Red Blood Count 3.39 X10*6/uL (4.20-5.50); Red Cell Distribution Width 13.8 % (11.0-16.0); White Blood Count 8.2 X10*3/uL (4.8-10.8)
[2022-05-23 15:57] VITALS: BP 130/70; PULSE 80; RESP 18; TEMP 36.3; O2SAT 95
== END 2022-05-23 16:26 | disposition home health service (06) | DRG 871 ==
LOC: HO.ED 18:30 → HO.EDOVER 19:14 → HO.IMC 19:20
PROVIDERS: Admitting Provider Student in an Organized Health Care Education/Training Program; Emergency Provider Emergency Medicine; PCP Internal Medicine; Visit Provider Internal Medicine
DX: A41.9 Sepsis, unspecified organism (principal); G93.41 Metabolic encephalopathy; N39.0 Urinary tract infection, site not specified; E87.20 Acidosis, unspecified; D68.8 Other specified coagulation defects; I24.8 Other forms of acute ischemic heart disease; C18.9 Malignant neoplasm of colon, unspecified; C78.00 Secondary malignant neoplasm of unspecified lung; F41.9 Anxiety disorder, unspecified; K21.9 Gastro-esophageal reflux disease without esophagitis; Z66 Do not resuscitate; J10.2 Influenza due to other identified influenza virus with gastrointestinal manifestations; J44.9 Chronic obstructive pulmonary disease, unspecified; B96.20 Unspecified Escherichia coli [E. coli] as the cause of diseases classified elsewhere; R00.0 Tachycardia, unspecified; E78.00 Pure hypercholesterolemia, unspecified; Z20.822 Contact with and (suspected) exposure to COVID-19; Z86.711 Personal history of pulmonary embolism; Z87.891 Personal history of nicotine dependence; Z90.2 Acquired absence of lung [part of]; Z79.01 Long term (current) use of anticoagulants; Z79.51 Long term (current) use of inhaled steroids; Z79.899 Other long term (current) drug therapy
CPT/HCPCS: 0241U; 36415; 71045; 80048; 80053; 81001; 83605; 84484; 85025; 85027; 85610; 86850; 86900; 86901; 87040; 87077; 87086; 87186; 87205; 93005; 99285; C1758; J0131; J0696; J2543; J3370

== ENCOUNTER 2022-06-20 15:53 | Outpatient (REF) | payer OTHER, SELFPAY ==
[2022-06-20 16:00] LABS: Appearance Urine Cloudy; Color Urine Yellow; Glucose Urine UA Negative (Negative); Leukocyte Esterase Urine Large (3+) (Negative); Nitrite Urine Negative (Negative); Specific Gravity - Urine 1.015 (1.005-1.025); UMIC TRIGGER UACC YES; Urine Blood Trace (Negative); Urine Ketones Negative (Negative); Urine Protein 30 (1+) mg/dL (Neg-Trace)
[2022-06-20 17:14] LABS: Bacteria Urine 4+ (None Seen); Hyaline Casts Urine 0-2 /LPF (0-2); Squamous Epithelial Cell Urine 0-2 /HPF (0-2); UACC Culture Trigger YES; WBC Urine >50 /HPF (0-5)
== END 2022-06-20 15:54 | disposition home or self-care (01) ==
LOC: HO.HVNA 15:53
PROVIDERS: Visit Provider Internal Medicine
DX: N39.0 Urinary tract infection, site not specified (principal)
CPT/HCPCS: 81001; 81003; 87086; 87088; 87186

== ENCOUNTER 2022-10-08 15:20 | Outpatient (RCR) | payer OTHER, SELFPAY ==
[2021-12-26 10:27] VITALS: BP 157/73; PULSE 85; RESP 16; TEMP 36.6; O2SAT 94; BMI 27.4
--- NOTE | 2021-12-26 10:31 | P.PNHO-ONC_ITS ---
Medical Summary - Medical Summary Date of Service: 12/26/21 Chief complaint: Lung nodule Medical Summary: Diagnosis: Left lung cancer 2014 Pt has a history of asthma/ COPD, presented April 16, 2014 with symptoms of shortness of breath, CT chest revealed a chronic pulmonary embolism involving a single left lower lobe segmental artery. Two small pleural nodules measuring about 2 x 4 mm probable intrapulmonary lymph node. The patient underwent CT angiogram November 14, 2014, which showed resolution of the pulmonary embolus but interval development of subpleural nodule located in the lingula measuring 1 x 1x 1.3 cm. The patient underwent a whole body PET scan on 12/14/14, demonstrated abnormal FDG activity in the lingula pulmonary nodule, SUV 4.3, pulmonary nodule 1.3 cm. Another FDG avid cervical level IIA lymph node with a maximum SUV 4.4 in the right side seen. No other abnormal activity in the neck, chest, abdomen or musculoskeletal system. 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 Patient was admitted between February 24 to February 27, 2015, with E. coli bacteremia as well as a recurrent pulmonary embolism. PET scan on June 07, 2015 demonstrated resolution of previously seen right upper lobe nodule. Stable right cervical lymph node with abnormal FDG uptake similar to previous. New suspicious osseous finding involving the left lamina of T2. Bone scan September 01, 2015 demonstrated a focus of mildly increased activity in the left side of the upper thoracic spine corresponding to the lesion on PET CT in May 2015, possible metastasis. Interval History Interval history: Patient is seen today after a long hiatus. She did not show up for her follow- up appointment last year, she was seen in the emergency department after a fall this month. She underwent scans and CT scan of chest revealed a new left upper lobe suspicious lung nodule. She is here accompanied by her family members for further recommendations. She denies any complaints such as worsening shortness of breath, cough or hemoptysis. No loss of appetite or weight loss. No headache or dizziness. She had a mechanical fall and had some minor bruising. She is recovering from it. Review of Systems - Constitutional Reports as per HPI, Reports no additional constitutional complaints - Cardiovascular Reports no additional cardiovascular complaints - Respiratory Reports no additional respiratory complaints [facility] [place] Medical History: Medical History (Last Reviewed 12/26/21 @ 10:31 by Mitzy José) Anxiety BPV (benign positional vertigo) Compression fracture of L1 lumbar vertebra COPD (chronic obstructive pulmonary disease) Diverticular disease GERD (gastroesophageal reflux disease) History of lung cancer History of pulmonary embolism Hypercholesterolemia Hypertension Knee osteoarthritis Low vitamin D level Family History: Family History (Last Reviewed 12/26/21 @ 10:31 by Mitzy José) Father Medical history unknown Mother Medical history unknown Son No problems noted. Daughter No problems noted. Surgical History: Surgical History (Last Reviewed 12/26/21 @ 10:31 by Mitzy José) History of ankle surgery History of cataract surgery History of hip replacement History of lobectomy of lung History of surgery Social History: Social History (Last Updated 12/26/21 @ 10:31 by Mitzy José) Living Situation History: Household Members: Family Housing: House Alcohol History Details: 1. How often do you have a drink containing alcohol?: a. Never Tobacco History: Patient Tobacco Use Status: Former Tobacco user Smoke Quit Date: 20 years ago e-Cigarette/Vaping Use: Never Used Second Hand Smoke Exposure: No Substance Use History: Use of substances other than those prescribed or required for medical reasons : No Advance Directives: Advance Directives Date on File: 06/22/20 Homicidal Assessment: Do you have thoughts of harming others: None Do you have a plan to hurt others: No Plan Do you have the means to hurt others: No Occupation Assessmet: service: No Current occupational status: retired Oncology Screenings - ECOG Performance Status ECOG Performance Status: 1 Home Medications and Allergies Home Medications Medication Instructions Recorded Confirmed Type acetaminophen 650 mg 650 mg PO Q8H PRN Pain (Scale 05/23/20 12/26/21 History tablet,extended release (Tylenol Score 1-3) Arthritis Pain) fluticasone 500 mcg-salmeterol 50 1 inh inhalation BID 05/23/20 12/26/21 History mcg/dose blistr powdr for inhalation (Advair Diskus) Allergies Allergy/AdvReac Type Severity Reaction Status Date / Time albuterol [Ventolin HFA] Allergy Unknown palpitation Verified 12/11/21 14:20 s Exam Vital signs: Vital Signs Temp 97.9 F 12/26/21 10:27 Pulse 85 12/26/21 10:27 Resp 16 12/26/21 10:27 BP 157/73 H 12/26/21 10:27 Pulse Ox 94 12/26/21 10:27 O2 Del Method 12/26/21 10:27 Intake & Output 12/25/21 12/26/21 12/26/21 18:59 06:59 18:59 Other: Weight 63.796 kg [place] Weight in Grams 00919.462 Weight 63.796 kg BMI result Body Mass Index 27.4 - Constitutional Present: no acute distress - Routine HEENT Exam Head: Present: normal inspection Eye: Present: EOMI, PERRL - Routine Neck Exam Absent: lymphadenopathy - Routine Respiratory Exam Present: decreased breath sounds. Absent: accessory muscle use - Routine Cardiovascular Exam Cardiovascular: Present: RRR, S1, S2 Assessment and Plan Patient Active problem list reviewed?: Yes (1) Lung cancer Status: Acute Assessment and plan: 1. 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 PET scan performed preoperatively showed no evidence of metastatic spread. The right side at the level 2A lymph node was felt to be inflammatory. She did not have a lobectomy because of poor oxygen saturations and underlying emphysema. Repeat PET scan in November 2015 shows decreasing FDG activity, SUV around 3 no definite evidence of metastatic disease. Repeat CT chest with contrast in June 2017 was stable. 2. Recurrent pulmonary embolism. The patient now on chronic anticoagulation with eliquis which she is tolerating well. 3. Compression fractures of L1 vertebra, after fall in november 2017. She underwent kyphoplasty, reports no significant pain at this time. 4. Left upper lobe spiculated lung mass suspicious for malignancy. PET-CT has been ordered. CT-guided biopsy will be scheduled. 5. Vitamin B12 and folate deficiency. She is being started on supplementation. Further recommendations to follow. Follow-up in 3 weeks. - Time Spent With Patient Time Spent with Patient (in minutes): 25
--- NOTE | 2021-12-26 11:00 | MHC.HEMONCSW ---
HCP UPDATED, SCANNED INTO RECORD.
--- NOTE | 2021-12-26 11:33 | MHC.HEMONCMA ---
patient was seen today after er visit on 12/20/21 for fall, scan showed left lung mass, petscan, lung bx ordered.
--- NOTE | 2021-12-26 14:50 | HO.HEMONCPA ---
PA FOR PET CT REQUIRED . I SENT IN CLINICAL INFORMATION TO [facility] , AWAITING DECISION
--- NOTE | 2021-12-31 08:58 | HO.HEMONCPA ---
PA FOR PET CT HAS BEEN APPROVED . [facility]-12/26/21 TO 04/28/22 AUTH#[id number]
--- NOTE | 2021-12-31 09:31 | HO.HEMONCPA ---
SENT IN CLINICAL INFORMATION TO [facility] , AWAITING APPT DATE AND TIME .
--- NOTE | 2022-01-01 10:32 | HO.HEMONCPA ---
PET CT FOR PATIENT IS SCHEDULED FOR 01/08/22 AT 10:15AM( per patient's son which was stated in the paper [facility] faxed back to me )
--- NOTE | 2022-01-10 13:45 | HO.HEMONCPA ---
PA FOR CT BIOPSY IS REQUIRED , I FAXED OVER CLINICAL INFORMATION TO [facility] . AWAITING DECISION
--- NOTE | 2022-01-11 13:04 | HO.HEMONCPA ---
PER [facility] NO PA IS REQUIRED FOR CT BIOPSY . ( SEE DOCUMENT SCANNED IN CHART )
--- NOTE | 2022-01-14 09:03 | MHC.HEMONCMA ---
Vidhya called with CT biopsy of left lung is booked for 01/24/22 at 10:30. I spoke with Danni at [phone] daughter to patient, and gave information about procedure and to hold eliquis / coumidin for 3 days and hold diclafenac for [address] mccabe put in lab orders for day of surgery. Danni will call if any issues.
--- NOTE | 2022-01-15 14:11 | HE.ONCSEC ---
CALLED PATIENT FOR ROUTINE REMINDER CALL , SOON I CALLED IT SHOWED THAT THE PHONE LINE WAS BUSY , I WILL TRY AGAIN BEFORE I LEAVE.
--- NOTE | 2022-01-16 14:50 | HE.ONCSEC ---
I WAS TOLD BY [facility] TO CHANGE PATIENT'S APPT TO FRIDAY . I CALLED PATIENT'S SON AND HE CONFIRMED THE NEW APPT DATE & TIME .
[2022-01-18 09:36] VITALS: BP 121/72; PULSE 95; RESP 16; TEMP 36.5; O2SAT 98; BMI 27.5
--- NOTE | 2022-01-18 09:42 | PM.HEMONCPN ---
Medical Summary - Medical Summary Date of Service: 01/18/22 Chief complaint: Follow-up Medical Summary: Diagnosis: Left lung cancer 2014 Pt has a history of asthma/ COPD, presented April 16, 2014 with symptoms of shortness of breath, CT chest revealed a chronic pulmonary embolism involving a single left lower lobe segmental artery. Two small pleural nodules measuring about 2 x 4 mm probable intrapulmonary lymph node. The patient underwent CT angiogram November 14, 2014, which showed resolution of the pulmonary embolus but interval development of subpleural nodule located in the lingula measuring 1 x 1x 1.3 cm. The patient underwent a whole body PET scan on 12/14/14, demonstrated abnormal FDG activity in the lingula pulmonary nodule, SUV 4.3, pulmonary nodule 1.3 cm. Another FDG avid cervical level IIA lymph node with a maximum SUV 4.4 in the right side seen. No other abnormal activity in the neck, chest, abdomen or musculoskeletal system. 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 Patient was admitted between February 24 to February 27, 2015, with E. coli bacteremia as well as a recurrent pulmonary embolism. PET scan on June 07, 2015 demonstrated resolution of previously seen right upper lobe nodule. Stable right cervical lymph node with abnormal FDG uptake similar to previous. New suspicious osseous finding involving the left lamina of T2. Bone scan September 01, 2015 demonstrated a focus of mildly increased activity in the left side of the upper thoracic spine corresponding to the lesion on PET CT in May 2015, possible metastasis. Interval History Interval history: Patient is here to discuss results of imaging study. She is here with 2 of her daughters. Patient thinks that she had a colonoscopy a long time ago. Her daughters mention that she has a mass protruding out of her rectum when she strains at stool. She denies any rectal bleeding or change in bowel habits. Review of Systems - Constitutional Reports as per HPI, Reports no additional constitutional complaints - Cardiovascular Reports no additional cardiovascular complaints - Respiratory Reports no additional respiratory complaints - Gastrointestinal Reports no additional gastrointestinal complaints [facility] Medical History: Medical History (Last Reviewed 01/18/22 @ 09:40 by DEREK Ludwig) Anxiety BPV (benign positional vertigo) Compression fracture of L1 lumbar vertebra COPD (chronic obstructive pulmonary disease) Diverticular disease GERD (gastroesophageal reflux disease) History of lung cancer History of pulmonary embolism Hypercholesterolemia Hypertension Knee osteoarthritis Low vitamin D level Family History: Family History (Last Reviewed 01/18/22 @ 09:41 by DEREK Ludwig) Father Medical history unknown Mother Medical history unknown Son No problems noted. Daughter No problems noted. Surgical History: Surgical History (Last Reviewed 01/18/22 @ 09:41 by DEREK Ludwig) History of ankle surgery History of cataract surgery History of hip replacement History of lobectomy of lung History of surgery Social History: Social History (Last Updated 01/18/22 @ 09:42 by DEREK Ludwig) Living Situation History: Household Members: Family Housing: House Alcohol History Details: 1. How often do you have a drink containing alcohol?: a. Never Tobacco History: Patient Tobacco Use Status: Former Tobacco user Smoke Quit Date: 20 years ago e-Cigarette/Vaping Use: Never Used Second Hand Smoke Exposure: No Substance Use History: Use of substances other than those prescribed or required for medical reasons: No Domestic Abuse History: Have you been hit, kicked, punched, or otherwise hurt by someone within the past year? If so, by whom?: No Do you feel safe in your current relationship?: No Current Relationship Advance Directives: Advance Directives Date on File: 06/22/20 Homicidal Assessment: Do you have thoughts of harming others: None Do you have a plan to hurt others: No Plan Do you have the means to hurt others: No Nutrition Assessment: Recently lost weight without trying: No Occupation Assessmet: service: No Current occupational status: retired Oncology Screenings - ECOG Performance Status ECOG Performance Status: 1 Home Medications and Allergies Home Medications Medication Instructions Recorded Confirmed Type acetaminophen 650 mg 650 mg PO Q8H PRN Pain (Scale 05/23/20 01/18/22 History tablet,extended release (Tylenol Score 1-3) Arthritis Pain) fluticasone 500 mcg-salmeterol 50 1 inh inhalation BID 05/23/20 01/18/22 History mcg/dose blistr powdr for inhalation (Advair Diskus) Allergies Allergy/AdvReac Type Severity Reaction Status Date / Time albuterol [Ventolin HFA] Allergy Unknown palpitation Verified 12/28/21 09:14 s Exam Vital signs: Vital Signs Temp 97.7 F 01/18/22 09:36 Pulse 95 01/18/22 09:36 Resp 16 01/18/22 09:36 BP 121/72 01/18/22 09:36 Pulse Ox 98 01/18/22 09:36 O2 Del Method 01/18/22 09:36 Intake & Output 01/17/22 01/18/22 01/18/22 18:59 06:59 18:59 Other: Weight 64 kg Weight in Grams [id number] Weight 64 kg BMI result Body Mass Index 27.5 - Constitutional Present: no acute distress - Routine HEENT Exam Head: Present: normal inspection - Routine Neck Exam Absent: lymphadenopathy - Routine Respiratory Exam Present: decreased breath sounds. Absent: accessory muscle use - Routine Cardiovascular Exam Cardiovascular: Present: RRR, S1, S2 Assessment and Plan Patient Active problem list reviewed?: Yes (1) Lung cancer Status: Acute Assessment and plan: 1. 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 PET scan performed preoperatively showed no evidence of metastatic spread. The right side at the level 2A lymph node was felt to be inflammatory. She did not have a lobectomy because of poor oxygen saturations and underlying emphysema. Repeat PET scan in November 2015 shows decreasing FDG activity, SUV around 3 no definite evidence of metastatic disease. Repeat CT chest with contrast in June 2017 was stable. Recurrent left upper lobe spiculated nodule noted on CT chest in December 2021. PET-CT performed 01/15/2022 reveal intense abnormal FDG activity in the region of rectosigmoid colon with associated wall thickening strongly suspicious for malignancy. FDG avid lymph node adjacent to rectosigmoid colon, left upper lobe spiculated pulmonary nodule with week FDG activity. Patient is having a CT-guided biopsy of left upper lobe spiculated mass. This could be lung primary or metastasis from colon cancer. 2. Rectosigmoid lesion noted on PET-CT. She is being referred to GI. 3. Recurrent pulmonary embolism. The patient now on chronic anticoagulation with eliquis 2.5 mg b.i.d., prophylactic dose. Patient could have 2 separate primaries or colon cancer with metastasis to the lung. This was explained to patient and her daughters. They are willing to proceed with above recommendations. Follow-up in 3 weeks. - Time Spent With Patient Time Spent with Patient (in minutes): 25
--- NOTE | 2022-01-18 10:17 | MHC.HEMONCMA ---
Pt seen today for 3 week onc F/U , thai speaking pt but refused traffic personnel supervisor services as her Daughter would serve as her traffic personnel supervisor, refusal form signed at this visit. biopsy scheduled for 01/24/22. with 3 week F/U booked. A referral for Consult with GI was ordered at this visit.
--- NOTE | 2022-01-21 12:16 | MHC.HEMONCMA ---
Referral to Dr Montoya sent via workgroup. Awaiting appt date & time
[2022-02-08 10:37] VITALS: BP 155/73; PULSE 89; RESP 16; O2SAT 99
--- NOTE | 2022-02-08 10:57 | MHC.HEMONCMA ---
Patient seen today for followup BX results, VSS,3 week followup
--- NOTE | 2022-02-08 11:14 | P.PNHO-ONC_ITS ---
Medical Summary - Medical Summary Date of Service: 02/08/22 Chief complaint: Follow-up Medical Summary: Diagnosis: Left lung cancer 2014 Pt has a history of asthma/ COPD, presented April 16, 2014 with symptoms of shortness of breath, CT chest revealed a chronic pulmonary embolism involving a single left lower lobe segmental artery. Two small pleural nodules measuring about 2 x 4 mm probable intrapulmonary lymph node. The patient underwent CT angiogram November 14, 2014, which showed resolution of the pulmonary embolus but interval development of subpleural nodule located in the lingula measuring 1 x 1x 1.3 cm. The patient underwent a whole body PET scan on 12/14/14, demonstrated abnormal FDG activity in the lingula pulmonary nodule, SUV 4.3, pulmonary nodule 1.3 cm. Another FDG avid cervical level IIA lymph node with a maximum SUV 4.4 in the right side seen. No other abnormal activity in the neck, chest, abdomen or musculoskeletal system. 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 Patient was admitted between February 24 to February 27, 2015, with E. coli bacteremia as well as a recurrent pulmonary embolism. PET scan on June 07, 2015 demonstrated resolution of previously seen right upper lobe nodule. Stable right cervical lymph node with abnormal FDG uptake similar to previous. New suspicious osseous finding involving the left lamina of T2. Bone scan September 01, 2015 demonstrated a focus of mildly increased activity in the left side of the upper thoracic spine corresponding to the lesion on PET CT in May 2015, possible metastasis. Interval History Interval history: Patient is here to discuss results of biopsy. She is here with 2 of her daughters. Patient thinks that she had a colonoscopy a long time ago. Her daughters mention that she has a mass protruding out of her rectum when she strains at stool. She denies any rectal bleeding or change in bowel habits. She has appointment with GI in February. Review of Systems - Constitutional Reports as per HPI, Reports no additional constitutional complaints PMFSH Medical History: Medical History (Last Reviewed 02/08/22 @ 10:39 by Mitzy José) Anxiety BPV (benign positional vertigo) Compression fracture of L1 lumbar vertebra COPD (chronic obstructive pulmonary disease) Diverticular disease GERD (gastroesophageal reflux disease) History of lung cancer History of pulmonary embolism Hypercholesterolemia Hypertension Knee osteoarthritis Low vitamin D level Family History: Family History (Last Reviewed 02/08/22 @ 10:39 by Mitzy José) Father Medical history unknown Mother Medical history unknown Son No problems noted. Daughter No problems noted. Surgical History: Surgical History (Last Reviewed 02/08/22 @ 10:39 by Mitzy José) History of ankle surgery History of cataract surgery History of hip replacement History of lobectomy of lung History of surgery Social History: Social History (Last Reviewed 02/08/22 @ 10:39 by Mitzy José) Living Situation History: Household Members: Family Housing: House Alcohol History Details: 1. How often do you have a drink containing alcohol?: a. Never Tobacco History: Patient Tobacco Use Status: Former Tobacco user Smoke Quit Date: 20 years ago e-Cigarette/Vaping Use: Never Used Second Hand Smoke Exposure: No Substance Use History: Use of substances other than those prescribed or required for medical reasons : No Domestic Abuse History: Have you been hit, kicked, punched, or otherwise hurt by someone within the past year? If so, by whom?: No Do you feel safe in your current relationship?: No Current Relationship Advance Directives: Advance Directives Date on File: 06/22/20 Homicidal Assessment: Do you have thoughts of harming others: None Do you have a plan to hurt others: No Plan Do you have the means to hurt others: No Nutrition Assessment: Recently lost weight without trying: No Occupation Assessmet: service: No Current occupational status: retired Home Medications and Allergies Home Medications Medication Instructions Recorded Confirmed Type acetaminophen 650 mg 650 mg PO Q8H PRN Pain (Scale 05/23/20 02/08/22 History tablet,extended release (Tylenol Score 1-3) Arthritis Pain) fluticasone 500 mcg-salmeterol 50 1 inh inhalation BID 05/23/20 02/08/22 History mcg/dose blistr powdr for inhalation (Advair Diskus) Allergies Allergy/AdvReac Type Severity Reaction Status Date / Time albuterol [Ventolin HFA] Allergy Unknown palpitation Verified 12/28/21 09:14 s Exam Vital signs: Vital Signs Temp 97.7 F 01/18/22 09:36 Pulse 89 02/08/22 10:37 Resp 16 02/08/22 10:37 BP 155/73 H 02/08/22 10:37 Pulse Ox 99 02/08/22 10:37 O2 Del Method 02/08/22 10:37 Weight 64 kg BMI result Body Mass Index 27.5 - Constitutional Present: no acute distress - Routine HEENT Exam Head: Present: normal inspection - Routine Neck Exam Absent: lymphadenopathy - Routine Respiratory Exam Present: decreased breath sounds. Absent: accessory muscle use - Routine Cardiovascular Exam Cardiovascular: Present: RRR, S1, S2 Assessment and Plan Patient Active problem list reviewed?: Yes (1) Lung cancer Status: Acute Assessment and plan: 1. 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 Recurrent left upper lobe spiculated nodule noted on CT chest in December 2021. PET-CT performed 01/15/2022 reveal intense abnormal FDG activity in the region of rectosigmoid colon with associated wall thickening strongly suspicious for malignancy. FDG avid lymph node adjacent to rectosigmoid colon, left upper lobe spiculated pulmonary nodule with week FDG activity. A small FDG avid focus in the T3 vertebral body not associated with any CT findings. Further characterization with MRI with and without contrast if clinically indicated. Patient is having a CT-guided biopsy of left upper lobe spiculated mass. On 01/24/[address]-guided biopsy of left lung nodule, pathology- small fragments of bronchoalveolar tissue suspicious for squamous cell carcinoma. 2. Rectosigmoid lesion noted on PET-CT, suspicious for malignancy. She is going to see GI on February 20. 3. Recurrent pulmonary embolism. The patient now on chronic anticoagulation with eliquis 2.5 mg b.i.d., prophylactic dose. She will also be referred to CT surgeon. She is probably not a candidate for lobectomy put wedge resection or radiotherapy could be considered. Follow-up in 3 weeks. - Time Spent With Patient Time Spent with Patient (in minutes): 20
--- NOTE | 2022-03-05 09:46 | PM.HEMONCPN ---
Medical Summary - Medical Summary Date of Service: 03/05/22 Chief complaint: Follow-up Medical Summary: Diagnosis: Left lung cancer 2014 Pt has a history of asthma/ COPD, presented April 16, 2014 with symptoms of shortness of breath, CT chest revealed a chronic pulmonary embolism involving a single left lower lobe segmental artery. Two small pleural nodules measuring about 2 x 4 mm probable intrapulmonary lymph node. The patient underwent CT angiogram November 14, 2014, which showed resolution of the pulmonary embolus but interval development of subpleural nodule located in the lingula measuring 1 x 1x 1.3 cm. The patient underwent a whole body PET scan on 12/14/14, demonstrated abnormal FDG activity in the lingula pulmonary nodule, SUV 4.3, pulmonary nodule 1.3 cm. Another FDG avid cervical level IIA lymph node with a maximum SUV 4.4 in the right side seen. No other abnormal activity in the neck, chest, abdomen or musculoskeletal system. 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 Patient was admitted between February 24 to February 27, 2015, with E. coli bacteremia as well as a recurrent pulmonary embolism. PET scan on June 07, 2015 demonstrated resolution of previously seen right upper lobe nodule. Stable right cervical lymph node with abnormal FDG uptake similar to previous. New suspicious osseous finding involving the left lamina of T2. Bone scan September 01, 2015 demonstrated a focus of mildly increased activity in the left side of the upper thoracic spine corresponding to the lesion on PET CT in May 2015, possible metastasis. PET-CT performed 01/15/2022 revealed intense abnormal FDG activity in the region of rectosigmoid colon with associated wall thickening strongly suspicious for malignancy. FDG avid lymph node adjacent to rectosigmoid colon, left upper lobe spiculated pulmonary nodule with week FDG activity. A small FDG avid focus in the T3 vertebral body not associated with any CT findings. Further characterization with MRI with and without contrast if clinically indicated. Interval History Interval history: Patient is here in follow up-this time she is accompanied by her son. Unfortunately, they missed there GI appointment. Now son wants to be in charge of all her appointments. She continues to be asymptomatic and denies any cough, or shortness of breath. No abdominal discomfort or change in bowel habits. Previously they mentioned that patient was having some hematochezia. Review of Systems - Constitutional Reports as per HPI, Denies fatigue, Denies fever(s), Denies malaise, Denies weakness, Denies weight loss [facility] Medical History: Medical History (Last Reviewed 03/05/22 @ 09:58 by Mitzy José) Anxiety BPV (benign positional vertigo) Compression fracture of L1 lumbar vertebra COPD (chronic obstructive pulmonary disease) Diverticular disease GERD (gastroesophageal reflux disease) History of lung cancer History of pulmonary embolism Hypercholesterolemia Hypertension Knee osteoarthritis Low vitamin D level Family History: Family History (Last Reviewed 03/05/22 @ 09:59 by Mitzy José) Father Medical history unknown Mother Medical history unknown Son No problems noted. Daughter No problems noted. Surgical History: Surgical History (Last Reviewed 03/05/22 @ 09:58 by Mitzy José) History of ankle surgery History of cataract surgery History of hip replacement History of lobectomy of lung History of surgery Social History: Social History (Last Reviewed 03/05/22 @ 09:59 by Mitzy José) Living Situation History: Household Members: Family Housing: House Tobacco History: Patient Tobacco Use Status: Former Tobacco user Smoke Quit Date: 20 years ago e-Cigarette/Vaping Use: Never Used Second Hand Smoke Exposure: No Advance Directives: Advance Directives Date on File: 06/22/20 Occupation Assessmet: service: No Current occupational status: retired Oncology Screenings - ECOG Performance Status ECOG Performance Status: 1 Home Medications and Allergies Home Medications Medication Instructions Recorded Confirmed Type acetaminophen 650 mg 650 mg PO Q8H PRN Pain (Scale 05/23/20 03/05/22 History tablet,extended release (Tylenol Score 1-3) Arthritis Pain) fluticasone 500 mcg-salmeterol 50 1 inh inhalation BID 05/23/20 03/05/22 History mcg/dose blistr powdr for inhalation (Advair Diskus) Allergies Allergy/AdvReac Type Severity Reaction Status Date / Time albuterol [Ventolin HFA] Allergy Unknown palpitation Verified 12/28/21 09:14 s Exam Vital signs: Vital Signs Temp 97.7 F 01/18/22 09:36 Pulse 89 02/08/22 10:37 Resp 16 02/08/22 10:37 BP 155/73 H 02/08/22 10:37 Pulse Ox 99 02/08/22 10:37 O2 Del Method 08/26/22 10:37 Weight 64 kg BMI result Body Mass Index 27.5 - Constitutional Present: no acute distress - Routine HEENT Exam Head: Present: normal inspection - Routine Neck Exam Absent: lymphadenopathy - Routine Respiratory Exam Present: decreased breath sounds. Absent: accessory muscle use - Routine Cardiovascular Exam Cardiovascular: Present: RRR, S1, S2 Assessment and Plan Patient Active problem list reviewed?: Yes (1) Lung cancer Status: Acute Assessment and plan: 1. 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 Recurrent left upper lobe spiculated nodule noted on CT chest in December 2021. On 01/24/[address]-guided biopsy of left lung nodule, pathology-small fragments of bronchoalveolar tissue suspicious for squamous cell carcinoma. She has been referred to CT surgeon. She is probably not a candidate for lobectomy put wedge resection or radiotherapy could be considered. 2. Rectosigmoid lesion noted on PET-CT, suspicious for malignancy. She missed GI appointment 2 weeks ago. That appointment for rescheduled for March 10. 3. Recurrent pulmonary embolism. The patient now on chronic anticoagulation with eliquis 2.5 mg b.i.d., prophylactic dose. Follow-up in 8 weeks. - Time Spent With Patient Time Spent with Patient (in minutes): 15
[2022-03-05 09:56] VITALS: BP 152/71; PULSE 91; RESP 15; TEMP 36.3; O2SAT 99
--- NOTE | 2022-03-05 11:08 | MHC.HEMONCMA ---
Patient seen today for follow up left lung CA, VSS, 2 month followup, GI appt 04/09/22 9:00,Thorasic appt 03/08/22 at 10:00. Called and instructed 2 RX sent to pharmacy for folic acid, vit b12 she needs to start taking.
--- NOTE | 2022-03-05 12:13 | MHC.HEMONC ---
I met with pt following phone call to [employer]. They provided me of details for transportation help for [facility] patients. Sharri is already aware of this as she canceled some of her appts with them. I reviewed with her the process and told her that she should book ride from location as well as ride to appt and then she won't have to wait for a local company tanker driver to become available. She understands this. She has my contact information should she have difficulty.
--- NOTE | 2022-03-11 15:09 | HO.HEMONCSCH ---
Called patient no answer. Left message regarding no show for lab work on 03/08/22. N/S letter mailed.
--- NOTE | 2022-03-26 16:22 | MHC.HEMONCMA ---
Moved up appt with GI to Dr. Rowland for 03/27/22 at 2pm arrive at 1:45. Called and spoke with daughter Babs who asked me to call brother Vishnu at [phone] to have him bring her to appt tomorrow. He confirmed date and time and will bring her he says.
--- NOTE | 2022-04-24 11:40 | PM.HEMONCPN ---
Medical Summary - Medical Summary Date of Service: 04/24/22 Chief complaint: Follow-up Medical Summary: Diagnosis: Left lung cancer 2014 Pt has a history of asthma/ COPD, presented April 16, 2014 with symptoms of shortness of breath, CT chest revealed a chronic pulmonary embolism involving a single left lower lobe segmental artery. Two small pleural nodules measuring about 2 x 4 mm probable intrapulmonary lymph node. The patient underwent CT angiogram November 14, 2014, which showed resolution of the pulmonary embolus but interval development of subpleural nodule located in the lingula measuring 1 x 1x 1.3 cm. The patient underwent a whole body PET scan on 12/14/14, demonstrated abnormal FDG activity in the lingula pulmonary nodule, SUV 4.3, pulmonary nodule 1.3 cm. Another FDG avid cervical level IIA lymph node with a maximum SUV 4.4 in the right side seen. No other abnormal activity in the neck, chest, abdomen or musculoskeletal system. 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 Patient was admitted between February 24 to February 27, 2015, with E. coli bacteremia as well as a recurrent pulmonary embolism. PET scan on June 07, 2015 demonstrated resolution of previously seen right upper lobe nodule. Stable right cervical lymph node with abnormal FDG uptake similar to previous. New suspicious osseous finding involving the left lamina of T2. Bone scan September 01, 2015 demonstrated a focus of mildly increased activity in the left side of the upper thoracic spine corresponding to the lesion on PET CT in May 2015, possible metastasis. PET-CT performed 01/15/2022 revealed intense abnormal FDG activity in the region of rectosigmoid colon with associated wall thickening strongly suspicious for malignancy. FDG avid lymph node adjacent to rectosigmoid colon, left upper lobe spiculated pulmonary nodule with week FDG activity. A small FDG avid focus in the T3 vertebral body not associated with any CT findings. Further characterization with MRI with and without contrast if clinically indicated. Interval History Interval history: Patient is here in follow up, she is accompanied by 2 of her daughters today. They have just been seen by [facility], they have been advised that patient has colon cancer. She denies abdominal pain, nausea or emesis. No fever or chills. She does feel tired. No hematochezia or melena. She did go to the emergency department on Friday for abdominal pain but this has resolved. Review of Systems - Constitutional Reports as per HPI, Reports no additional constitutional complaints, Denies fatigue, Denies fever(s), Reports lack of energy, Reports malaise, Reports poor appetite - Cardiovascular Reports no additional cardiovascular complaints - Respiratory Reports no additional respiratory complaints - Neurologic Denies weakness [facility] Medical History: Medical History (Last Reviewed 04/24/22 @ 11:45 by Donna Huang CMA) Anxiety Back pain BPV (benign positional vertigo) Carpal tunnel syndrome Compression fracture of L1 lumbar vertebra COPD (chronic obstructive pulmonary disease) Diverticular disease GERD (gastroesophageal reflux disease) History of primary malignant neoplasm of left lung Onset Date: ~2014 History of pulmonary embolism Onset Date: ~2013 Hypercholesterolemia Hypertension Low vitamin D level Osteoporosis Onset Date: ~2007 Family History: Family History (Last Reviewed 04/24/22 @ 11:45 by Donna Huang CMA) Son No problems noted. Daughter No problems noted. Mother No problems noted. Father No problems noted. Surgical History: Surgical History (Last Reviewed 04/24/22 @ 11:45 by Donna Huang CMA) History of ankle surgery History of cataract surgery History of colonoscopy History of esophagogastroduodenoscopy (EGD) History of hemiarthroplasty of right hip Onset Date: ~2020 History of kyphoplasty Onset Date: ~2017 History of lobectomy of lung Onset Date: ~2014 History of lung biopsy Onset Date: ~2021 Social History: Social History (Last Updated 04/24/22 @ 11:46 by Donna Huang CMA) Living Situation History: Household Members: Family Housing: House Tobacco History: Patient Tobacco Use Status: Former Tobacco user Smoke Quit Date: 20 years ago e-Cigarette/Vaping Use: Never Used Second Hand Smoke Exposure: No Advance Directives: Advance Directives Date on File: 04/12/22 Occupation Assessmet: service: No Current occupational status: retired Home Medications and Allergies Home Medications Medication Instructions Recorded Confirmed Type acetaminophen 650 mg 650 mg PO Q8H PRN Pain (Scale 05/23/20 04/24/22 History tablet,extended release (Tylenol Score 1-3) Arthritis Pain) fluticasone 500 mcg-salmeterol 50 1 inh inhalation BID 05/23/20 04/24/22 History mcg/dose blistr powdr for inhalation (Advair Diskus) Allergies Allergy/AdvReac Type Severity Reaction Status Date / Time No Known Allergies Allergy Verified 04/24/22 11:46 Exam Vital signs: Vital Signs Temp 97.3 F 03/05/22 09:56 Pulse 91 03/05/22 09:56 Resp 15 03/05/22 09:56 BP 152/71 H 03/05/22 09:56 Pulse Ox 99 03/05/22 09:56 O2 Del Method 02/08/22 10:37 Weight 64 kg BMI result Body Mass Index 27.5 - Constitutional Present: no acute distress - Routine HEENT Exam Head: Present: normal inspection - Routine Neck Exam Absent: lymphadenopathy - Routine Respiratory Exam Present: decreased breath sounds. Absent: accessory muscle use - Routine Cardiovascular Exam Cardiovascular: Present: RRR, S1, S2 Data - Labs Labs: Laboratory Tests 03/08/22 04/19/22 04/19/22 10:46 17:11 17:11 WBC 9.6 RBC 4.07 L Hgb 11.4 L Hct 36.5 L Plt Count 251 Sodium 142 Potassium 4.7 BUN 10 Creatinine 1.02 Carcinoembryonic Ag 11.60 Assessment and Plan Patient Active problem list reviewed?: Yes (1) Lung cancer Status: Acute Assessment and plan: 1. 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 Recurrent left upper lobe spiculated nodule noted on CT chest in December 2021. On 01/24/[address]-guided biopsy of left lung nodule, pathology-small fragments of bronchoalveolar tissue suspicious for squamous cell carcinoma. She has been referred to CT surgeon. She is probably not a candidate for lobectomy put wedge resection or radiotherapy could be considered. 2. Rectosigmoid lesion noted on PET-CT, suspicious for malignancy. On 04/11/2022 she underwent sigmoidoscopy, there was a polypoidal mass occupying the entire lumen at 25 cm in the sigmoid colon. Biopsy of this revealed superficial fragments of adenocarcinoma. MSI stable. She underwent CT abdomen /pelvis with contrast on 04/19/2022 which revealed circumferential segment of thick-walled sigmoid colon extending over 5 cm in length with minimal surrounding pericolonic fat stranding. 1.5 cm adjacent soft tissue pericolonic lymph node consistent with patient's known colon cancer. No evidence of bowel obstruction. She appears to be clinical stage III colon cancer. She has already been referred for surgical evaluation. 3. Recurrent pulmonary embolism. The patient now on chronic anticoagulation with eliquis 2.5 mg b.i.d., prophylactic dose. Her blood work is normal, CEA level is elevated. I discussed all above findings with patient and family. They are interested in pursuing further treatment with surgery if possible. I will also reach out to radiation oncologist about treating the left upper lobe squamous cell carcinoma which is a separate primary. Follow-up in 4 weeks. - Time Spent With Patient Time Spent with Patient (in minutes): 40
[2022-04-24 11:42] VITALS: BP 139/67; PULSE 81; RESP 12; TEMP 36.6; O2SAT 97; BMI 23.6
--- NOTE | 2022-04-24 16:36 | MHC.HEMONCMA ---
Pt was in for follow up. Clinical summary reviewed and updated, VSS. Pt to return in a few weeks.
--- NOTE | 2022-04-26 11:01 | MHC.HEMONC ---
Pt dtr Danni was called by Isabel for 4 week f/u with Dr Casper. Isabel had me call dtr back due to her concern that her mother had an episode of rectal bleeding with stool. I called Danni and she confirmed that her brother told her this happened after her visit here a couple of days ago. She has not had incident again but her daughter will check this out with her mother. Toshia has a Consultation with General Hoffmann on 05/23 here at [facility]. I explained to her that bleeding could be from hard stool and that she is on anticoagulation so that is also possibly a cause. She was advised to call her GI here at [facility] if it recurs.
--- NOTE | 2022-06-11 14:43 | HE.ONCSEC ---
PATIENT'S DAUGHTER CALLED STATING HER MOM MISSED AN APPT ON 05/22 . I RESCHEDULED W/ PATIENT'S DAUGHTER ON THE PHONE FOR THIS FRIDAY . PATIENT'S DAUGHTER STATES PT HAS BEEN EXPERIENCING DIARRHEA AND IS CONCERNED .
--- NOTE | 2022-06-12 11:09 | HE.ONCSEC ---
CALLED ONE OF PATIENT'S DAUGHTER'S TO REMIND HER OF HER MOTHERS APPT FOR TOMORROW , THEY CANCELLED IT AGAIN STATING HER MOTHER HAS COVID . I RESCHEDULED W/ PT'S DAUGHTER ON THE PHONE
--- NOTE | 2022-06-12 16:05 | MHC.HEMONC ---
Most recent note from Dr Casper (04/24/22) faxed to Rad/Onc [facility] as requested
--- NOTE | 2022-06-25 09:19 | HE.ONCSEC ---
PATIENT'S DAUGHTER CALLED VERY UPSET THAT SOMEONE HAS CHANGED HER MOM'S APPT THAT WAS FOR TODAY TO TOMORROW . DAUGHTER STATES THAT PEOPLE CHANGE IT WITHOUT CALLING . UPON LOOKING AT HER CHART I SAW THAT IT WAS CHANGED BY [employer] . I WILL LET TEAGAN KNOW AND SEE HOW SHE WILL LIKE TO PROCEED . PATIENT'S DAUGHTER STATES SHE WILL COME IN TOMORROW TO TALK ABOUT THIS MATTER .
[2022-06-26 10:50] VITALS: BP 133/65; PULSE 90; RESP 14; TEMP 36.4; O2SAT 98; BMI 20.5
--- NOTE | 2022-06-26 10:57 | PM.HEMONCPN ---
Medical Summary - Medical Summary Date of Service: 06/26/22 Chief complaint: Follow-up Medical Summary: Diagnosis: Left lung cancer 2014 Pt has a history of asthma/ COPD, presented April 16, 2014 with symptoms of shortness of breath, CT chest revealed a chronic pulmonary embolism involving a single left lower lobe segmental artery. Two small pleural nodules measuring about 2 x 4 mm probable intrapulmonary lymph node. The patient underwent CT angiogram November 14, 2014, which showed resolution of the pulmonary embolus but interval development of subpleural nodule located in the lingula measuring 1 x 1x 1.3 cm. The patient underwent a whole body PET scan on 12/14/14, demonstrated abnormal FDG activity in the lingula pulmonary nodule, SUV 4.3, pulmonary nodule 1.3 cm. Another FDG avid cervical level IIA lymph node with a maximum SUV 4.4 in the right side seen. No other abnormal activity in the neck, chest, abdomen or musculoskeletal system. 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 Patient was admitted between February 24 to February 27, 2015, with E. coli bacteremia as well as a recurrent pulmonary embolism. PET scan on June 07, 2015 demonstrated resolution of previously seen right upper lobe nodule. Stable right cervical lymph node with abnormal FDG uptake similar to previous. New suspicious osseous finding involving the left lamina of T2. Bone scan September 01, 2015 demonstrated a focus of mildly increased activity in the left side of the upper thoracic spine corresponding to the lesion on PET CT in May 2015, possible metastasis. PET-CT performed 01/15/2022 revealed intense abnormal FDG activity in the region of rectosigmoid colon with associated wall thickening strongly suspicious for malignancy. FDG avid lymph node adjacent to rectosigmoid colon, left upper lobe spiculated pulmonary nodule with week FDG activity. A small FDG avid focus in the T3 vertebral body not associated with any CT findings. Further characterization with MRI with and without contrast if clinically indicated. Interval History Interval history: Patient is here in follow up, she is accompanied by 2 of her daughters today. Patient is now receiving hospice care at home and is quite comfortable. She denies any pain, hematochezia, fever or chills. She is eating fairly well although they do report weight loss. She was recently treated for a UTI. They have an appointment with PCP next week. Review of Systems - Constitutional Reports as per HPI, Denies fatigue, Denies fever(s), Reports malaise, Denies night sweats, Reports weight loss - Neurologic Denies weakness [facility] Medical History: Medical History (Last Reviewed 06/26/22 @ 10:53 by Mitzy José) Anxiety Back pain BPV (benign positional vertigo) Carpal tunnel syndrome Compression fracture of L1 lumbar vertebra COPD (chronic obstructive pulmonary disease) Diverticular disease GERD (gastroesophageal reflux disease) History of primary malignant neoplasm of left lung Onset Date: ~2014 History of pulmonary embolism Onset Date: ~2013 Hypercholesterolemia Hypertension Low vitamin D level Osteoporosis Onset Date: ~2007 Tachycardia Family History: Family History (Last Reviewed 06/26/22 @ 10:53 by Mitzy José) Son No problems noted. Daughter No problems noted. Mother No problems noted. Father No problems noted. Surgical History: Surgical History (Last Reviewed 06/26/22 @ 10:53 by Mitzy José) History of ankle surgery History of cataract surgery History of colonoscopy History of esophagogastroduodenoscopy (EGD) History of hemiarthroplasty of right hip Onset Date: ~2020 History of kyphoplasty Onset Date: ~2017 History of lobectomy of lung Onset Date: ~2014 History of lung biopsy Onset Date: ~2021 Social History: Social History (Last Reviewed 06/26/22 @ 10:53 by Mitzy José) Living Situation History: Household Members: Children Household Members Other:: son Housing: Apartment Alcohol History Details: 1. How often do you have a drink containing alcohol?: a. Never Tobacco History: Patient Tobacco Use Status: Former Tobacco user Smoke Quit Date: 20 years ago e-Cigarette/Vaping Use: Never Used Second Hand Smoke Exposure: No Substance Use History: Use of substances other than those prescribed or required for medical reasons: No Domestic Abuse History: Have you been hit, kicked, punched, or otherwise hurt by someone within the past year? If so, by whom?: No Do you feel safe in your current relationship?: No Current Relationship Advance Directives: Advance Directives Date on File: 04/12/22 Homicidal Assessment: Do you have thoughts of harming others: None Do you have a plan to hurt others: No Plan Do you have the means to hurt others: No Nutrition Assessment: Recently lost weight without trying: No Eating poorly because of decreased appetite: No Occupation Assessmet: service: No Current occupational status: retired Home Medications and Allergies Home Medications Medication Instructions Recorded Confirmed Type acetaminophen 650 mg 650 mg PO Q8H PRN Pain (Scale 05/23/20 06/26/22 History tablet,extended release (Tylenol Score 1-3) Arthritis Pain) fluticasone 500 mcg-salmeterol 50 1 inh inhalation BID 05/23/20 06/26/22 History mcg/dose blistr powdr for inhalation (Advair Diskus) metoprolol tartrate 25 mg tablet 25 mg PO DAILY 05/20/22 06/26/22 History Allergies Allergy/AdvReac Type Severity Reaction Status Date / Time No Known Allergies Allergy Verified 05/08/22 08:57 Exam Vital signs: Vital Signs Temp 97.6 F 06/26/22 10:50 Pulse 90 06/26/22 10:50 Resp 14 06/26/22 10:50 BP 133/65 06/26/22 10:50 Pulse Ox 98 06/26/22 10:50 O2 Del Method 06/26/22 10:50 Intake & Output 06/25/22 06/26/22 06/26/22 18:59 06:59 18:59 Other: Weight 47.6 kg [place] Weight in Grams [id number] Weight 47.6 kg BMI result Body Mass Index 20.5 - Constitutional Present: no acute distress - Routine HEENT Exam Head: Present: normal inspection - Routine Neck Exam Absent: lymphadenopathy - Routine Respiratory Exam Present: decreased breath sounds. Absent: accessory muscle use - Routine Cardiovascular Exam Cardiovascular: Present: RRR, S1, S2 Assessment and Plan Patient Active problem list reviewed?: Yes (1) Lung cancer Status: Chronic Assessment and plan: 1. 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 Recurrent left upper lobe spiculated nodule noted on CT chest in December 2021. On 01/24/[address]-guided biopsy of left lung nodule, pathology-small fragments of bronchoalveolar tissue suspicious for squamous cell carcinoma. She has been referred to CT surgeon. She is probably not a candidate for lobectomy put wedge resection or radiotherapy could be considered. 2. Rectosigmoid lesion noted on PET-CT, suspicious for malignancy. On 04/11/2022 she underwent sigmoidoscopy, there was a polypoidal mass occupying the entire lumen at 25 cm in the sigmoid colon. Biopsy of this revealed superficial fragments of adenocarcinoma. MSI stable. She underwent CT abdomen /pelvis with contrast on 04/19/2022 which revealed circumferential segment of thick-walled sigmoid colon extending over 5 cm in length with minimal surrounding pericolonic fat stranding. 1.5 cm adjacent soft tissue pericolonic lymph node consistent with patient's known colon cancer. No evidence of bowel obstruction. She appears to be clinical stage III colon cancer. She has already been referred for surgical evaluation. 3. Recurrent pulmonary embolism. The patient now on chronic anticoagulation with eliquis 2.5 mg b.i.d., prophylactic dose. Patient and family had decided not to undergo surgery for colon cancer or any treatment of recurrent lung cancer. She is now receiving palliative/hospice care at home and is doing well. She is not in pain, she was recently treated for a UTI. The understand that patient will eventually of progressive cancer as it is not being treated. They want mother to be comfortable and pass peacefully at home. Patient/family will call if there are any further concerns. - Time Spent With Patient Time Spent with Patient (in minutes): 15
--- NOTE | 2022-06-26 11:04 | HE.ONCSEC ---
PER DR HOGAN PT DOES NOT NEED FOLLOW UP SO NO FOLLOW UP WAS BOOKED .
--- NOTE | 2022-06-26 11:49 | MHC.HEMONCMA ---
patient seen today for followup left lung CA, Vss,labs, no followup needed.
--- NOTE | 2022-10-08 11:38 | MHC.HEMONC ---
Pt's dtr, Danni Mayorga, called, reported that pt has been having increasing c/o lower abd pain, also pt's son, who takes care of pt, said she hasn't moved her bowels in 3 days. Nurse confirmed that pt still takes Lactulose and Miralax powder both twice daily, and she said she believes so. Nurse updated Dr. Casper, she agreed to have pt come in for same-day sick visit this afternoon. Nurse booked pt Onc f/u for 3:20 pm.
[2022-10-08 15:24] VITALS: BP 169/73; PULSE 97; TEMP 36.6; O2SAT 98; BMI 25.0
--- NOTE | 2022-10-08 15:31 | PM.HEMONCPN ---
Medical Summary - Medical Summary Date of Service: 10/08/22 Chief complaint: Worsening abdominal pain and constipation Primary Care Provider: Rasheed Gilliam MD Medical Summary: Diagnosis: Left lung cancer 2014 Pt has a history of asthma/ COPD, presented April 16, 2014 with symptoms of shortness of breath, CT chest revealed a chronic pulmonary embolism involving a single left lower lobe segmental artery. Two small pleural nodules measuring about 2 x 4 mm probable intrapulmonary lymph node. The patient underwent CT angiogram November 14, 2014, which showed resolution of the pulmonary embolus but interval development of subpleural nodule located in the lingula measuring 1 x 1x 1.3 cm. The patient underwent a whole body PET scan on 12/14/14, demonstrated abnormal FDG activity in the lingula pulmonary nodule, SUV 4.3, pulmonary nodule 1.3 cm. Another FDG avid cervical level IIA lymph node with a maximum SUV 4.4 in the right side seen. No other abnormal activity in the neck, chest, abdomen or musculoskeletal system. 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 Patient was admitted between February 24 to February 27, 2015, with E. coli bacteremia as well as a recurrent pulmonary embolism. PET scan on June 07, 2015 demonstrated resolution of previously seen right upper lobe nodule. Stable right cervical lymph node with abnormal FDG uptake similar to previous. New suspicious osseous finding involving the left lamina of T2. Bone scan September 01, 2015 demonstrated a focus of mildly increased activity in the left side of the upper thoracic spine corresponding to the lesion on PET CT in May 2015, possible metastasis. PET-CT performed 01/15/2022 revealed intense abnormal FDG activity in the region of rectosigmoid colon with associated wall thickening strongly suspicious for malignancy. FDG avid lymph node adjacent to rectosigmoid colon, left upper lobe spiculated pulmonary nodule with week FDG activity. A small FDG avid focus in the T3 vertebral body not associated with any CT findings. Further characterization with MRI with and without contrast if clinically indicated. Interval History Interval history: Patient seen urgently today at family's request. The son brought the patient in saying that she was in increasing pain and had not had a bowel movement in 4 days. They have been giving her MiraLax and she had a small BM today. The son states that they were getting hospice nurses for a while but they were told that she did not need them anymore. They do want to continue/resume hospice services. Review of Systems - Neurologic Denies weakness [facility] Medical History: Medical History (Last Reviewed 10/08/22 @ 15:27 by Tiff Mcclendon) Anxiety Back pain BPV (benign positional vertigo) Carpal tunnel syndrome Compression fracture of L1 lumbar vertebra COPD (chronic obstructive pulmonary disease) Diverticular disease GERD (gastroesophageal reflux disease) History of primary malignant neoplasm of left lung Onset Date: ~2014 History of pulmonary embolism Onset Date: ~2013 Hypercholesterolemia Hypertension Low vitamin D level Osteoporosis Onset Date: ~2007 Tachycardia Family History: Family History (Last Reviewed 10/08/22 @ 15:27 by Tiff Mcclendon) Son No problems noted. Daughter No problems noted. Mother No problems noted. Father No problems noted. Surgical History: Surgical History (Last Reviewed 10/08/22 @ 15:27 by Tiff Mcclendon) History of ankle surgery History of cataract surgery History of colonoscopy History of esophagogastroduodenoscopy (EGD) History of hemiarthroplasty of right hip Onset Date: ~2020 History of kyphoplasty Onset Date: ~2017 History of lobectomy of lung Onset Date: ~2014 History of lung biopsy Onset Date: ~2021 Social History: Social History (Last Reviewed 10/08/22 @ 15:27 by Tiff Mcclendon) Living Situation History: Household Members: Children Household Members Other:: son Housing: Apartment Alcohol History Details: 1. How often do you have a drink containing alcohol?: a. Never Tobacco History: Patient Tobacco Use Status: Former Tobacco user Smoke Quit Date: 20 years ago e-Cigarette/Vaping Use: Never Used Second Hand Smoke Exposure: No Substance Use History: Use of substances other than those prescribed or required for medical reasons: No Domestic Abuse History: Have you been hit, kicked, punched, or otherwise hurt by someone within the past year? If so, by whom?: No Do you feel safe in your current relationship?: No Current Relationship Advance Directives: Advance Directives Date on File: 04/12/22 Homicidal Assessment: Do you have thoughts of harming others: None Do you have a plan to hurt others: No Plan Do you have the means to hurt others: No Nutrition Assessment: Recently lost weight without trying: No Eating poorly because of decreased appetite: No Occupation Assessmet: service: No Current occupational status: retired Home Medications and Allergies Home Medications Medication Instructions Recorded Confirmed Type acetaminophen 650 mg 650 mg PO Q8H PRN Pain (Scale 05/23/20 10/08/22 History tablet,extended release (Tylenol Score 1-3) Arthritis Pain) fluticasone 500 mcg-salmeterol 50 1 inh inhalation BID 05/23/20 10/08/22 History mcg/dose blistr powdr for inhalation (Advair Diskus) metoprolol tartrate 25 mg tablet 25 mg PO DAILY 05/20/22 10/08/22 History Allergies Allergy/AdvReac Type Severity Reaction Status Date / Time No Known Allergies Allergy Verified 10/08/22 15:27 Exam Vital signs: Vital Signs Temp 98 F 10/08/22 15:24 Pulse 97 10/08/22 15:24 Resp 14 06/26/22 10:50 BP 169/73 H 10/08/22 15:24 Pulse Ox 98 10/08/22 15:24 O2 Del Method Room Air 10/08/22 15:24 Intake & Output 10/07/22 10/08/22 10/08/22 18:59 06:59 18:59 Other: Weight 58 kg Orange Weight in Grams 29900 Weight 58 kg BMI result Body Mass Index 25.0 - Constitutional Present: mild distress - Routine HEENT Exam Head: Present: normal inspection - Routine Neck Exam Absent: lymphadenopathy - Routine Respiratory Exam Present: decreased breath sounds. Absent: accessory muscle use - Routine Cardiovascular Exam Cardiovascular: Present: RRR, S1, S2 Assessment and Plan Patient Active problem list reviewed?: Yes (1) Lung cancer Status: Chronic Assessment and plan: 1. 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 Recurrent left upper lobe spiculated nodule noted on CT chest in December 2021. On 01/24/[address]-guided biopsy of left lung nodule, pathology-small fragments of bronchoalveolar tissue suspicious for squamous cell carcinoma. She has been referred to CT surgeon. She is probably not a candidate for lobectomy put wedge resection or radiotherapy could be considered. 2. Rectosigmoid lesion noted on PET-CT, suspicious for malignancy. On 04/11/2022 she underwent sigmoidoscopy, there was a polypoidal mass occupying the entire lumen at 25 cm in the sigmoid colon. Biopsy of this revealed superficial fragments of adenocarcinoma. MSI stable. She underwent CT abdomen /pelvis with contrast on 04/19/2022 which revealed circumferential segment of thick-walled sigmoid colon extending over 5 cm in length with minimal surrounding pericolonic fat stranding. 1.5 cm adjacent soft tissue pericolonic lymph node consistent with patient's known colon cancer. No evidence of bowel obstruction. She appears to be clinical stage III colon cancer. She has already been referred for surgical evaluation. 3. Recurrent pulmonary embolism. The patient now on chronic anticoagulation with eliquis 2.5 mg b.i.d., prophylactic dose. Patient and family had decided not to undergo surgery for colon cancer or any treatment of recurrent lung cancer. She was briefly on hospice/palliative care services. Patient was brought in by son today because of worsening pain, nausea and constipation. The last 4 days she has deteriorated significantly. According to the son, hospice nurses stopped coming because she was doing well. He is willing to resume hospice services. Patient needs to be on comfort care medications. Currently she is on tramadol, Zofran and MiraLax. She is being referred again to hospice services. - Time Spent With Patient Time Spent with Patient (in minutes): 15
--- NOTE | 2022-10-08 16:32 | MHC.HEMONCMA ---
patient seen today for colon cancer, added on to schedule after no being able to use restroom for acouple days, following up in office PRN
== END 2022-10-22 | disposition home or self-care (01) ==
LOC: HO.ONC 15:20
PROVIDERS: PCP Internal Medicine; Visit Provider Internal Medicine
DX: C34.12 Malignant neoplasm of upper lobe, left bronchus or lung (principal); C19 Malignant neoplasm of rectosigmoid junction; R97.0 Elevated carcinoembryonic antigen [CEA]; Z86.711 Personal history of pulmonary embolism; Z79.01 Long term (current) use of anticoagulants
CPT/HCPCS: 99213; 99214; 99215

== ENCOUNTER 2022-10-09 17:27 | Emergency (ER) | payer OTHER, SELFPAY ==
--- NOTE | ~2022-10-09 | CT_ITS ---
EXAMINATION: CT ABDOMEN AND PELVIS WITHOUT CONTRAST CLINICAL INFORMATION: abd pain constipation. COMPARISON: 04/19/2022. TECHNIQUE: Multidetector volumetric imaging was performed from the superior aspect of the liver through the pubic symphysis without contrast per request. Sagittal and coronal reformatted images were obtained on the technologist workstation. This CT examination was performed using dose optimization techniques as appropriate, variously including the following: *Automated exposure control *Adjustment of mA and/or kV according to patient size (this includes techniques or standardized protocols for targeted exams where dose is matched to indication/reason for exam; i.e. extremities or head) *Use of iterative reconstruction technique Of note the images are degraded by patient respiratory motion. DLP: 491 mGy-cm. FINDINGS: LUNG BASES: The visualized lung bases are unremarkable. Small hiatal hernia LIVER, GALLBLADDER, BILIARY TREE: The non-contrast liver is normal in size, shape, and attenuation. No focal hepatic lesion or biliary ductal dilatation is present. The gallbladder is unremarkable with no evidence of radiopaque gallstones, gallbladder wall thickening, or obvious pericholecystic inflammatory changes. PANCREAS: Unremarkable. SPLEEN: Unremarkable. ADRENAL GLANDS: Unremarkable. KIDNEYS AND URETERS: The previously noted right renal upper pole cyst was better seen on the prior contrast-enhanced CT scan. Vascular calcifications within both kidneys. No obstructive changes. No hydronephrosis or perinephric stranding. BLADDER: Not well assessed due to beam hardening artifact from the right hip prosthesis GASTROINTESTINAL TRACT: There is a focal concentric narrowing of the distal sigmoid colon with dilatation of the colon proximal to this area. By report patient has a history of known colonic carcinoma. This area is less prominent on the current study suggesting there has been posttreatment changes. Visualized small bowel grossly unremarkable ABDOMINAL WALL: No significant hernia is appreciated. LYMPHOVASCULAR STRUCTURES: Prominent vascular calcification within the aorta iliac system. PELVIC VISCERA: Unremarkable. OSSEUS STRUCTURES: Multilevel degenerative changes in the spine with compression deformity and vertebroplasty cement at L1. Chronic compression deformity of L2 similar to the prior CT scan as well CT/CT abdomen pelvis wo IV con IMPRESSION: Of note, the patient has a history of known colonic carcinoma. There is a focal concentric narrowing of the distal sigmoid colon with dilatation of the colon proximal to this area. This area is less prominent on the current study suggesting there has been posttreatment changes in this location when compared to the prior examinations. Chronic appearing changes otherwise as described.
[2022-10-09 17:32] VITALS: BP 178/97; PULSE 109; RESP 18; TEMP 36.3; O2SAT 97; BMI 19.0
--- NOTE | 2022-10-09 18:31 | ED.NAVMDI ---
HPI - Nausea/Vomiting/Diarrhea General Chief complaint: Nausea/Vomiting/Diarrhea Stated complaint: vomiting/constipated/lower abd pain Time Seen by Provider: 10/09/22 18:12 Source: patient and family Mode of arrival: ambulatory Limitations: no limitations and language barrier History of Present Illness HPI Narrative: 82-year-old female presents to emergency department complaining of abdominal pain. Patient going to CAT scan immediately upon arrival patient states she has had constipation has not been out about 4 days and has had some associated vomiting. Patient denies any falls injuries denies chest pain or cough. Patient denies having any surgeries to her abdomen in the past. Patient with pulse few days now with anything patient does fall asleep after time patient briefly. MD elicited complaint: nausea, vomiting and abdominal pain Related Data Home Medications Medication Instructions Recorded Confirmed acetaminophen 650 mg 650 mg PO Q8H PRN Pain (Scale 05/23/20 10/09/22 tablet,extended release (Tylenol Score 1-3) Arthritis Pain) fluticasone 500 mcg-salmeterol 50 1 inh inhalation BID 05/23/20 10/09/22 mcg/dose blistr powdr for inhalation (Advair Diskus) metoprolol tartrate 25 mg tablet 25 mg PO BID 05/20/22 10/09/22 diclofenac sodium 1 % topical gel 4 g topical QID PRN Pain 10/09/22 10/09/22 (Arthritis Pain (diclofenac)) Previous Rx's Medication Instructions Recorded Hospital bed with air mattress #1 ea 08/02/20 hospiptal bed #1 ea 08/18/20 albuterol sulfate 90 mcg/actuation 2 puff inhalation Q4H PRN 12/29/20 aerosol inhaler Shortness Of Breath #8.5 grams meclizine 25 mg tablet 25 mg PO DAILY #90 caps 08/14/21 polyethylene glycol 3350 17 17 g PO BID 30 days #1,020 grams 03/27/22 gram/dose oral powder (Miralax) famotidine 20 mg tablet 20 mg PO BID #60 tabs 07/11/22 apixaban 5 mg tablet (Eliquis) 5 mg PO BID #180 tabs 08/05/22 lactulose 20 gram/30 mL oral 20 g (30 mL) PO BID PRN 08/09/22 solution constipation #2,880 mL cyanocobalamin (vitamin B-12) 1,000 mcg PO DAILY #60 tabs 09/24/22 1,000 mcg tablet (Vitamin B-12) sennosides 8.6 mg-docusate sodium 1 tab-cap PO BEDTIME #30 tabs 10/08/22 50 mg tablet (Senna-S) tramadol 50 mg tablet 50 mg PO TID PRN pain 30 days #90 10/08/22 tabs ondansetron 4 mg disintegrating 4 mg PO Q6H #14 tabs 10/09/22 tablet Allergies Allergy/AdvReac Type Severity Reaction Status Date / Time No Known Allergies Allergy Verified 10/09/22 17:31 Review of Systems Review of Systems: Review of systems: General: Patient denies any fever chills recent illness or falls Musculoskeletal: Denies back pain or body aches or other injuries HEENT: denies headache, runny nose, ear pain Respiratory: denies shortness of breath, cough Cardiovascular: no chest pain or palpitations : denies dysuria, frequency Abdomen: nausea vomiting constipation with lower abdominal pain Extremities: no swelling, no pain Skin: no diaphoresis Yes all other systems are reviewed and are negative [facility] Past Medical History Medical History (Updated 10/09/22 @ 19:28 by Abdirashid Adair DO) Anxiety Back pain BPV (benign positional vertigo) Carpal tunnel syndrome Compression fracture of L1 lumbar vertebra COPD (chronic obstructive pulmonary disease) Diverticular disease GERD (gastroesophageal reflux disease) History of primary malignant neoplasm of left lung (~2014) History of pulmonary embolism (~2013) Hypercholesterolemia Hypertension Low vitamin D level Osteoporosis (~2007) Tachycardia Surgical History History of ankle surgery History of cataract surgery History of colonoscopy History of esophagogastroduodenoscopy (EGD) History of hemiarthroplasty of right hip (~2020) History of kyphoplasty (~2017) History of lobectomy of lung (~2014) History of lung biopsy (~2021) Family History Family History Son No problems noted. Daughter No problems noted. Mother No problems noted. Father No problems noted. Social History Social History Household Members: Children Household Members Other:: son Housing: Apartment Alcohol intake: never Patient Tobacco Use Status: Former Tobacco user Quit Date: 20 years ago Smoked in Last 30 Days: No e-Cigarette/Vaping Use: Never Used Second Hand Smoke Exposure: No Use of substances other than those prescribed or required for medical reasons: No Advance Directives: Yes Advance Directives on File: Yes Advance Directives Date on File: 04/12/22 service: No Current occupational status: retired Cognitive needs: Yes (wheelchair) Hearing needs: No Vision needs: Yes (Glasses) Physical Exam Vital Signs: Vital Signs: Last Vital Signs Temp 97.4 F 10/09/22 17:32 Pulse 109 H 10/09/22 17:32 Resp 18 10/09/22 17:32 BP 178/97 H 10/09/22 17:32 Pulse Ox 97 10/09/22 17:32 O2 Del Method Room Air 10/09/22 17:32 BMI result Body Mass Index 19.0 General: Well-appearing well-nourished in no signs of distress HEENT: Normocephalic atraumatic Neck: No signs of JVD, no masses no tenderness or lymphadenopathy Cardiovascular: Regular rate and rhythm Respiratory: Clear to auscultation bilaterally Abdomen: Soft nontender no masses Extremities: Normal pedal pulses no signs of edema Skin: Dry warm no rashes Back: No tenderness full ROM Medications Administered Discontinued Medications Generic Name Dose Route Start Last Admin Trade Name Freq PRN Reason Stop Dose Admin Sodium Chloride 1,000 mls @ 999 mls/hr 10/09/22 18:45 10/09/22 19:45 Ns IV 10/09/22 19:45 Not Given .Q1H1M [facility] Ondansetron HCl 4 mg 10/09/22 18:31 10/09/22 19:44 Ondansetron Hcl 4 Mg/2 Ml Vial IVPUSH 10/09/22 18:32 Not Given ONCE ONE Ondansetron HCl 4 mg 10/09/22 19:26 10/09/22 19:51 Ondansetron Odt 4 Mg Tab.Rapdis TRANSLINGU 10/09/22 19:27 4 mg ONCE ONE Administration Medical Decision Making Medical Decision Making MDM Narrative: Concern for small bowel obstruction versus acute surgical issue or diverticulitis this could also be constipation all send patient for CT scan I will check labs for dehydration since ryan ent's vomiting for several days. Multiple times to get an IV were unsuccessful I will give patient oral Zofran 1925 Labs are all normal. CT shows colon cancer but no obstruction. Patient looks better but no IV was able to be placed I will give oral zofran and try oral fluids at this time. 1999 Patient tolerating foods and liquids now. I will send home. Differential Diagnosis Differential Diagnoses: The differential diagnosis associated with the presentation includes Concern for diverticulitis small-bowel obstruction or acute surgical issue patient does have benign abdomen with her age and her story of patient for CT scan I will check some labs Admission/Observation Consideration of admission/observation: Escalation of care including admission/observation considered Consult Healthcare Provider Management of the patient was discussed with: Hospitalist Lab Data MDM Lab Attestation statement: I reviewed the patient's lab results. 10/09/22 18:35 10/09/22 18:35 Labs: Lab Results 10/09/22 10/09/22 10/09/22 Range/Units 18:35 18:35 18:35 WBC 10.2 (4.8-10.8) X10*3/uL RBC 3.89 L (4.20-5.50) X10*6/uL Hgb 8.5 L (12.0-16.0) g/dl Hct 28.6 L (37.0-47.0) % MCV 73.5 L (80.0-98.0) fL MCH 21.9 L (27.0-33.0) pg MCHC 29.7 L (31.0-35.0) g/dl RDW 15.2 (11.0-16.0) % Plt Count 357 D (160-400) X10*3/uL MPV 9.5 (9.4-12.3) fL Immature Gran % (Auto) 0.3 (0.0-0.4) % Neut % (Auto) 75.3 H (45-73) % Lymph % (Auto) 15.1 L (20-40) % [place] % (Auto) 9.0 (2-11) % Eos % (Auto) 0.0 (0-4) % Baso % (Auto) 0.3 (0-2) % Lymph # (Auto) 1.5 (1.2-4.9) X10*3/uL [place] # (Auto) 0.9 (0.1-1.2) X10*3/uL Eos # (Auto) 0.0 (0.0-0.4) X10*3/uL Baso # (Auto) 0.0 (0.0-0.2) X10*3/uL Abs Immat Gran (auto) 0.03 (0.00-0.03) X10*3/uL Absolute Neuts (auto) 7.7 (2.0-8.3) x10*3/uL Absolute Nucleated RBC 0.000 (0.0-0.012) X10*3/uL Nucleated RBC % (auto) 0.0 (0.0-0.2) /100WBC Sodium 136 (135-145) mmol/L Potassium 3.9 (3.3-5.1) mmol/L Chloride 102 (96-108) mmol/L Carbon Dioxide 24 (22-29) mmol/L Anion Gap 14 (12-20) BUN 15 (9-16) mg/dL Creatinine 0.86 (0.5-1.4) mg/dL Estim Creat Clear Calc 37.5 Estimated GFR > 60 Random Glucose 153 H (60-115) mg/dL Calcium 9.4 D (8.4-10.2) mg/dL Magnesium 2.0 (1.6-2.6) mg/dL Total Bilirubin 0.5 (0.0-1.0) mg/dL AST 18 (5-31) U/L ALT 8 (0-31) U/L Alkaline Phosphatase 93 (39-117) U/L Total Protein 8.5 H (6.5-8.0) g/dL Albumin 4.3 (3.5-5.0) g/dL COVID-19 (JAMES) Negative (Negative) COVID-19 Clin Com See Note Radiology Impression Discussion of test interpretation with radiology: I have reviewed the radiologist's reading. External Record Review External record reviewed: Inpatient record, Prior outpatient labs and Outside ED record Discharge Plan Discharge Clinical Impression: Vomiting, Colonic mass Patient Disposition: Home, Self-Care Additional Instructions: Please take zofran as needed for nausea and vomiting. If you have any other concerns please return to the ED. Prescriptions: New ondansetron 4 mg tablet,disintegrating 4 mg PO Q6H Qty: 14 0RF No Action (DME) Hospital bed with air mattress See Rx Instructions .Route .MEDSUPPLY Qty: 1 0RF Rx Instructions: As directed albuterol sulfate 90 mcg/actuation HFA aerosol inhaler 2 puff INHALATION Q4H PRN (Reason: Shortness Of Breath) Qty: 8.5 0RF meclizine 25 mg tablet 25 mg PO DAILY Qty: 90 2RF famotidine 20 mg tablet 20 mg PO BID Qty: 60 2RF Eliquis 5 mg tablet 5 mg PO BID Qty: 180 0RF lactulose 20 gram/30 mL solution 20 g PO BID PRN (Reason: constipation) Qty: 2880 0RF cyanocobalamin (vitamin B-12) [Vitamin B-12] 1,000 mcg tablet 1,000 mcg PO DAILY Qty: 60 3RF tramadol 50 mg tablet 50 mg PO TID PRN (Reason: pain) 30 Days Qty: 90 0RF sennosides-docusate sodium [Senna-S] 8.6-50 mg Tablet 1 tab-cap PO BEDTIME Qty: 30 0RF metoprolol tartrate 25 mg tablet 25 mg PO BID diclofenac sodium [Arthritis Pain (diclofenac)] 1 % gel 4 g topical QID PRN (Reason: Pain) Rx Instructions: apply to single knee, ankle, foot; for foot includes sole/toes/top of foot acetaminophen [Tylenol Arthritis Pain] 650 mg tablet extended release 650 mg PO Q8H PRN (Reason: Pain (Scale Score 1-3)) fluticasone propion-salmeterol [Advair Diskus] 500-50 mcg/dose blister with device 1 inh inhalation BID Patient Comments: last time filled was on 09/18/19 (DME) hospiptal bed See Rx Instructions .Route .MEDSUPPLY Qty: 1 0RF Rx Instructions: As directed polyethylene glycol 3350 [Miralax] 17 gram/dose powder 17 g PO BID 30 Days Qty: 1020 0RF
[2022-10-09 18:39] LABS: MANUAL DIFF FLAG NO
[2022-10-09 18:41] LABS: Basophils Percent Auto 0.3 % (0-2); Hematocrit 28.6 % (37.0-47.0); Hemoglobin 8.5 g/dl (12.0-16.0); Imm Gran Abs Auto 0.03 X10*3/uL (0.00-0.03); Imm Gran Pct Auto 0.3 % (0.0-0.4); Lymphocytes Absolute Auto 1.5 X10*3/uL (1.2-4.9); Lymphocytes Percent Auto 15.1 % (20-40); Mean Corpuscular HGB Conc 29.7 g/dl (31.0-35.0); Mean Corpuscular Hemoglobin 21.9 pg (27.0-33.0); Mean Corpuscular Volume 73.5 fL (80.0-98.0); Mean Platelet Volume 9.5 fL (9.4-12.3); Monocytes Absolute Auto 0.9 X10*3/uL (0.1-1.2); Neutrophils Absolute Auto 7.7 x10*3/uL (2.0-8.3); Neutrophils Percent Auto 75.3 % (45-73); Platelet Count 357 X10*3/uL (160-400); Red Blood Count 3.89 X10*6/uL (4.20-5.50); Red Cell Distribution Width 15.2 % (11.0-16.0); White Blood Count 10.2 X10*3/uL (4.8-10.8)
[2022-10-09 18:52] LABS: COVID-19 Test Negative (Negative); IDNOW Serial# BCCEAD1C
[2022-10-09 19:06] LABS: Alanine Aminotransferase 8 U/L (0-31); Albumin Level 4.3 g/dL (3.5-5.0); Alkaline Phosphatase 93 U/L (39-117); Anion Gap 14 (12-20); Aspartate Amino Transferase 18 U/L (5-31); Bilirubin Total 0.5 mg/dL (0.0-1.0); Blood Urea Nitrogen 15 mg/dL (9-16); Calcium 9.4 mg/dL (8.4-10.2); Carbon Dioxide 24 mmol/L (22-29); Chloride 102 mmol/L (96-108); Creatinine Clr Calc Pharmacy 37.5; Estimated Glomerular Filt Rate > 60; Glucose Random 153 mg/dL (60-115); Potassium 3.9 mmol/L (3.3-5.1); Sodium 136 mmol/L (135-145); Total Protein 8.5 g/dL (6.5-8.0)
--- NOTE | 2022-10-09 19:28 | PHA.MEDREC ---
Pharmacy Consult ? Medication Reconciliation Pharmacy has completed the medication reconciliation. Daughter had a list of meds, adament patient is adherent even though claim history reflects otherwise jet
--- NOTE | 2022-10-09 19:45 | PC.NURSE ---
Patient is a difficult stick, multiple ED RN's attempted to insert IV line for Zofran IV and NS hydration administration with no success. Dr. Montejo notified. Per MD hold IV mediations, administer Zofran PO and encourage patient to drink fluids orally.
[2022-10-09] MEDS: Ondansetron ODT 4 MG TAB.RAPDIS TRANSLINGU (19:51)
[2022-10-09 20:21] VITALS: BP 149/78; PULSE 92; RESP 18; TEMP 36.5; O2SAT 95
== END 2022-10-09 20:22 | disposition home or self-care (01) ==
PROVIDERS: Physician Assistant; Emergency Provider Student in an Organized Health Care Education/Training Program; PCP Internal Medicine
DX: K63.89 Other specified diseases of intestine (principal); R11.2 Nausea with vomiting, unspecified; C18.7 Malignant neoplasm of sigmoid colon; C34.90 Malignant neoplasm of unspecified part of unspecified bronchus or lung; Z86.711 Personal history of pulmonary embolism; Z79.01 Long term (current) use of anticoagulants
CPT/HCPCS: 74176; 80053; 83735; 85025; 87635; 99284

== ENCOUNTER 2022-10-14 13:35 | Inpatient (IN) | payer OTHER, SELFPAY ==
--- NOTE | ~2022-10-14 | XR_ITS ---
EXAMINATION: XR ABDOMEN COMPLETE CLINICAL INDICATION: Abdominal pain and distention. COMPARISON: None available. TECHNIQUE: 2 views of the abdomen. FINDINGS: Distended colon with stool and gas. There is a large amount of free air. There is no organomegaly. There is L1 cement augmentation for old fracture. There is a right hip prosthesis noted. XR/XR abdomen min 2V IMPRESSION: 1. Large amount of free air in the abdomen. 2. Distended colon with stool and gas. Correlate with clinical exam. Results were immediately called to Jesus Alberto Beckham by phone at 3:50 PM.
--- NOTE | 2022-10-14 14:01 | ED_ITS ---
HPI - Abdominal Pain General Chief Complaint: Abdominal Pain Stated Complaint: ABD PAIN,NO BM X1 WEEK,H/O COLON CA Time Seen by Provider: 10/14/22 13:50 Source: patient and EMS Mode of arrival: EMS Limitations: no limitations History of Present Illness HPI narrative: 82-year-old female with history of colonic carcinoma presents with abdominal pain and distension. Patient was seen on October 09 with similar complaints of abdominal pain, distension and constipation. His been approximately 8 days since her last bowel movement. Pain is moderate to severe. Worse with palpation and movement. There is no nausea or vomiting but there is decreased appetite. The pain is generalized. Does not radiate. She has had no fevers or chills. Pain is similar over the past week. Related Data Home Medications Medication Instructions Recorded Confirmed acetaminophen 650 mg 650 mg PO Q8H PRN Pain (Scale 05/23/20 10/09/22 tablet,extended release (Tylenol Score 1-3) Arthritis Pain) fluticasone 500 mcg-salmeterol 50 1 inh inhalation BID 05/23/20 10/09/22 mcg/dose blistr powdr for inhalation (Advair Diskus) metoprolol tartrate 25 mg tablet 25 mg PO BID 05/20/22 10/09/22 diclofenac sodium 1 % topical gel 4 g topical QID PRN Pain 10/09/22 10/09/22 (Arthritis Pain (diclofenac)) Previous Rx's Medication Instructions Recorded Hospital bed with air mattress #1 ea 08/02/20 hospiptal bed #1 ea 08/18/20 albuterol sulfate 90 mcg/actuation 2 puff inhalation Q4H PRN 12/29/20 aerosol inhaler Shortness Of Breath #8.5 grams meclizine 25 mg tablet 25 mg PO DAILY #90 caps 08/14/21 polyethylene glycol 3350 17 17 g PO BID 30 days #1,020 grams 03/27/22 gram/dose oral powder (Miralax) famotidine 20 mg tablet 20 mg PO BID #60 tabs 07/11/22 apixaban 5 mg tablet (Eliquis) 5 mg PO BID #180 tabs 08/05/22 lactulose 20 gram/30 mL oral 20 g (30 mL) PO BID PRN 08/09/22 solution constipation #2,880 mL cyanocobalamin (vitamin B-12) 1,000 mcg PO DAILY #60 tabs 09/24/22 1,000 mcg tablet (Vitamin B-12) sennosides 8.6 mg-docusate sodium 1 tab-cap PO BEDTIME #30 tabs 10/08/22 50 mg tablet (Senna-S) tramadol 50 mg tablet 50 mg PO TID PRN pain 30 days #90 10/08/22 tabs ondansetron 4 mg disintegrating 4 mg PO Q6H #14 tabs 10/09/22 tablet Allergies Allergy/AdvReac Type Severity Reaction Status Date / Time No Known Allergies Allergy Verified 10/14/22 14:39 [facility] Past Medical History Medical History Anxiety Back pain BPV (benign positional vertigo) Carpal tunnel syndrome Compression fracture of L1 lumbar vertebra COPD (chronic obstructive pulmonary disease) Diverticular disease GERD (gastroesophageal reflux disease) History of primary malignant neoplasm of left lung (~2014) History of pulmonary embolism (~2013) Hypercholesterolemia Hypertension Low vitamin D level Osteoporosis (~2007) Tachycardia Surgical History History of ankle surgery History of cataract surgery History of colonoscopy History of esophagogastroduodenoscopy (EGD) History of hemiarthroplasty of right hip (~2020) History of kyphoplasty (~2017) History of lobectomy of lung (~2014) History of lung biopsy (~2021) Family History Family History Son No problems noted. Daughter No problems noted. Mother No problems noted. Father No problems noted. Social History Social History Household Members: Children Household Members Other:: son Housing: Apartment Alcohol intake: never Patient Tobacco Use Status: Former Tobacco user Quit Date: 20 years ago Smoked in Last 30 Days: No e-Cigarette/Vaping Use: Never Used Second Hand Smoke Exposure: No Use of substances other than those prescribed or required for medical reasons: No Advance Directives: Yes Advance Directives on File: Yes Advance Directives Date on File: 04/12/22 service: No Current occupational status: retired Cognitive needs: Yes (wheelchair) Hearing needs: No Vision needs: Yes (Glasses) Physical Exam ED Vital Signs: Vital Signs - 24 hr 10/14/22 14:37 10/14/22 16:08 Temperature 98.2 F 99.0 F Pulse Rate 92 95 Respiratory Rate 18 22 H Blood Pressure 123/77 130/69 Pulse Oximetry 97 96 Oxygen Delivery Method Room Air Room Air BMI result Body Mass Index 24.4 GEN: Well developed, no acute distress, alert, oriented HEENT: Normocephalic, atraumatic, normal external ears, nose appears normal, no oropharyngeal edema or exudates Eyes: Normal to appearance Neck: Supple, no lymphadenopathy Respiratory: Talks in complete sentences, no respiratory distress, clear to auscultation bilaterally Cardiovascular: Regular rate and rhythm, no murmurs rubs or gallops Abdomen: Abdomen is grossly distended, diff generally tender, no rebound or guarding, no palpable masses Back: No CVA tenderness Extremities: No clubbing cyanosis or edema Neurologic: No focal neurologic deficits, cranial nerves 2-12 intact, strength is 5/5 bilaterally Skin: No rash Rectal: no stool in vault Course Course Course Narrative: 82-year-old female with history of colonic carcinoma presents with abdominal distention and constipation. Patient was here approximately a week ago for similar complaints. She reports not having had a bowel movement since then. Exam revealed a distended abdomen with abdominal tenderness, no rebound or guarding. Patient may still be obstipated. There is a possibility she could wilkinson ve a bowel obstruction at this point. I did review the previous imaging results as well as of the images themselves. There is no evidence of a small-bowel obstruction. There is a nonspecific bowel gas pattern with abdominal distension. Reevaluation(s) Reevaluation #1: At been in communication with Dr. Bacon who is familiar with the patient. She has sigmoid cancer. In May per consultation no, there is discussion with the family about doing no surgeries. They are aware that an obstruction would likely be impending at that time. I reviewed this with the patient and 1 of her sons. Apparently they are 13 children. They would like to speak with Dr. Bacon about potential options. They are aware that her symptoms are likely due to the sigmoid obstruction.At this time will sign out to the oncoming provider to review lab testing and follow up on consultation with Dr. Bacon. Time: 15:47 Reevaluation #2: Patient has a perforation. Patient is aware of the situation. Two of the sons have also been made aware of the situation. We discussed the possibility of hospice care versus more aggressive treatment including potentially surgery. There also where patient may not even be a surgical candidate. In the meantime, I have ordered Zosyn, IV fluids, blood cultures etc.. Oncoming provider made aware of situation and will assist with an appropriate disposition Time: 16:03 Medical Decision Making Medical Decision Making [facility] Narrative: 82-year-old female with history of colonic carcinoma presents with abdominal pain and distension. Patient will have an x-ray, laboratory analysis, IV fluids. Will determined the appropriate steps after her x-ray. Patient did have Differential Diagnosis Differential Diagnoses: The differential diagnosis associated with the presentation includes (Constipation, obstipation, mass, small bowel obstruction) Admission/Observation Consideration of admission/observation: Escalation of care including admission/observation considered Lab Data [facility] Lab Attestation statement: I reviewed the patient's lab results. 10/14/22 15:05 Labs: Lab Results 10/14/22 Range/Units 15:05 Sodium 131 L (135-145) mmol/L Potassium 4.6 (3.3-5.1) mmol/L Chloride 99 (96-108) mmol/L Carbon Dioxide 23 (22-29) mmol/L Anion Gap 14 (12-20) BUN 20 H (9-16) mg/dL Creatinine 0.94 (0.5-1.4) mg/dL Estim Creat Clear Calc 34.9 Estimated GFR 57 Random Glucose 117 H (60-115) mg/dL Calcium 9.0 (8.4-10.2) mg/dL Total Bilirubin 0.8 (0.0-1.0) mg/dL AST 26 (5-31) U/L ALT 13 (0-31) U/L Alkaline Phosphatase 92 (39-117) U/L Total Protein 8.0 (6.5-8.0) g/dL Albumin 4.0 (3.5-5.0) g/dL Independent Interpretation I performed an independent interpretation of an: Plain X-Ray (bowel gas pattern, free air) Independent Historian Clinical information obtained from an independent historian. History obtained from or confirmed by: EMS External Record Review External record reviewed: Prior outpatient radiology (Recent CT scan) Tests considered The following testing was considered but not selected: BP CT scan Prescription Management I considered prescription management with: Pain Medication Medications Administered Discontinued Medications Generic Name Dose Route Start Last Admin Trade Name Freq PRN Reason Stop Dose Admin Simethicone 160 mg 10/14/22 14:06 10/14/22 14:52 Simethicone 80 Mg Tab.Chew PO 10/14/22 14:07 160 mg ONCE ONE Administration Critical Care Time Critical Care Time Critical Care Time: Yes Total Critical Care Time: 45 Attestation: Critical care time has been performed on patient. Patient has a perforated bowel secondary to cancer. Patient has impending severe morbidity and potential mortality. Care has been provided to the patient in bedside reassessment, review of medical data, interpretation of medical data, consultation with other providers, direct intervention, extensive conversation with family. Discharge Plan Discharge Clinical Impression: Abdominal pain, Abdominal distension, Carcinoma of sigmoid colon, Perforated bowel Patient Disposition: Still a Patient Prescriptions: No Action (DME) Hospital bed with air mattress See Rx Instructions .Route .MEDSUPPLY Qty: 1 0RF Rx Instructions: As directed albuterol sulfate 90 mcg/actuation HFA aerosol inhaler 2 puff INHALATION Q4H PRN (Reason: Shortness Of Breath) Qty: 8.5 0RF meclizine 25 mg tablet 25 mg PO DAILY Qty: 90 2RF famotidine 20 mg tablet 20 mg PO BID Qty: 60 2RF Eliquis 5 mg tablet 5 mg PO BID Qty: 180 0RF lactulose 20 gram/30 mL solution 20 g PO BID PRN (Reason: constipation) Qty: 2880 0RF cyanocobalamin (vitamin B-12) [Vitamin B-12] 1,000 mcg tablet 1,000 mcg PO DAILY Qty: 60 3RF tramadol 50 mg tablet 50 mg PO TID PRN (Reason: pain) 30 Days Qty: 90 0RF sennosides-docusate sodium [Senna-S] 8.6-50 mg Tablet 1 tab-cap PO BEDTIME Qty: 30 0RF metoprolol tartrate 25 mg tablet 25 mg PO BID diclofenac sodium [Arthritis Pain (diclofenac)] 1 % gel 4 g topical QID PRN (Reason: Pain) Rx Instructions: apply to single knee, ankle, foot; for foot includes sole/toes/top of foot ondansetron 4 mg tablet,disintegrating 4 mg PO Q6H Qty: 14 0RF acetaminophen [Tylenol Arthritis Pain] 650 mg tablet extended release 650 mg PO Q8H PRN (Reason: Pain (Scale Score 1-3)) fluticasone propion-salmeterol [Advair Diskus] 500-50 mcg/dose blister with device 1 inh inhalation BID Patient Comments: [place]18[place] See Rx Instructions .Route .MEDSUPPLY Qty: 1 0RF Rx Instructions: As directed polyethylene glycol 3350 [Miralax] 17 gram/dose powder 17 g PO BID 30 Days Qty: 1020 0RF Referrals: Franklin Bacon MD [Physician] - 5 days Po,Rasheed Wong MD [Primary Care Provider] - 3 days
[2022-10-14 14:37] VITALS: BP 123/77; PULSE 92; RESP 18; TEMP 36.8; O2SAT 97; BMI 24.4
[2022-10-14] MEDS: Simethicone 80 MG TAB.CHEW 160 MG PO (14:52)
[2022-10-14 15:41] LABS: Alanine Aminotransferase 13 U/L (0-31); Alkaline Phosphatase 92 U/L (39-117); Anion Gap 14 (12-20); Aspartate Amino Transferase 26 U/L (5-31); Bilirubin Total 0.8 mg/dL (0.0-1.0); Blood Urea Nitrogen 20 mg/dL (9-16); Carbon Dioxide 23 mmol/L (22-29); Chloride 99 mmol/L (96-108); Creatinine Clr Calc Pharmacy 34.9; Estimated Glomerular Filt Rate 57; Glucose Random 117 mg/dL (60-115); Potassium 4.6 mmol/L (3.3-5.1); Sodium 131 mmol/L (135-145)
[2022-10-14 16:08] VITALS: BP 130/69; PULSE 95; RESP 22; TEMP 37.2; O2SAT 96
--- NOTE | 2022-10-14 17:01 | PM.CNGS ---
History of Present Illness Consult details Consult date: 10/14/22 Narrative: 82F brought to the ED by the family for abdominal pain and distension. She is well known to me. I have seen her in the office last year in May 2022 because of sigmoid cancer. The family had decided against any surgical intervention. She has had poor health for years with COPD, lung cancer and cognitive decline. She has been practically bedbound since then. She had a CT scan in the ED 5 days ago when she was brought for the same symptoms. This showed the concentric thickening in the sigmoid consistent with her sigmoid cancer. She was discharged but was brought back today for worsening abdl pain and distension. There is no reported vomitting. The family states that she has had no good bowel movement in over a week. Review of Systems Constitutional: Constitutional: Denies chills and Denies fever(s) Cardiovascular: Cardiovascular: Denies chest pain Respiratory: Respiratory: Denies cough Gastrointestinal: Gastrointestinal: Denies coffee ground emesis, Reports constipation and Denies vomiting Genitourinary: Genitourinary: Denies difficulty voiding Musculoskeletal: Musculoskeletal: Reports muscle weakness PMFSH Past Medical History Medical History Anxiety Back pain BPV (benign positional vertigo) Carpal tunnel syndrome Compression fracture of L1 lumbar vertebra COPD (chronic obstructive pulmonary disease) Diverticular disease GERD (gastroesophageal reflux disease) History of primary malignant neoplasm of left lung (~2014) History of pulmonary embolism (~2013) Hypercholesterolemia Hypertension Low vitamin D level Osteoporosis (~2007) Tachycardia Family History Family History Son No problems noted. Daughter No problems noted. Mother No problems noted. Father No problems noted. Surgical History Surgical History History of ankle surgery History of cataract surgery History of colonoscopy History of esophagogastroduodenoscopy (EGD) History of hemiarthroplasty of right hip (~2020) History of kyphoplasty (~2017) History of lobectomy of lung (~2014) History of lung biopsy (~2021) Social History Social History Household Members: Children Household Members Other:: son Housing: Apartment Alcohol intake: never Patient Tobacco Use Status: Former Tobacco user Quit Date: 20 years ago e-Cigarette/Vaping Use: Never Used Second Hand Smoke Exposure: No Advance Directives Date on File: 04/12/22 service: No Current occupational status: retired Cognitive needs: Yes (wheelchair) Hearing needs: No Vision needs: Yes (Glasses) Meds Allergies Allergy/AdvReac Type Severity Reaction Status Date / Time No Known Allergies Allergy Verified 10/14/22 14:39 Home Medications Medication Instructions Recorded Confirmed Last Taken Type ondansetron 4 mg disintegrating 4 mg PO Q6H PRN Nausea And Vomiting 10/14/22 10/14/22 Unknown History tablet Physical Exam Vital Signs: Vital Signs: Last Vital Signs Temp 99.0 F 10/14/22 16:08 Pulse 95 10/14/22 16:08 Resp 22 H 10/14/22 16:08 BP 130/69 10/14/22 16:08 Pulse Ox 96 10/14/22 16:08 O2 Del Method Room Air 10/14/22 16:08 BMI result Body Mass Index 24.4 Const: Other: appears uncomfortable, has signs of cognitive decline Resp: Effort & Inspection: normal respiratory effort Cardio: Rate: regular rate GI: Other: distended, diffusely tender, with guarding Results Labs 10/14/22 15:05 Labs: Abnormal lab results 10/14/22 Range/Units 15:05 Sodium 131 L (135-145) mmol/L BUN 20 H (9-16) mg/dL Random Glucose 117 H (60-115) mg/dL BMP 10/14/22 15:05 Sodium 131 L Potassium 4.6 Chloride 99 Carbon Dioxide 23 BUN 20 H Creatinine 0.94 Calcium 9.0 Liver Function 10/14/22 Range/Units 15:05 Total Bilirubin 0.8 (0.0-1.0) mg/dL AST 26 (5-31) U/L ALT 13 (0-31) U/L Alkaline Phosphatase 92 (39-117) U/L Albumin 4.0 (3.5-5.0) g/dL All other labs normal. Laboratory Results Sodium 131 mmol/L (135-145) L 10/14/22 15:05 Potassium 4.6 mmol/L (3.3-5.1) 10/14/22 15:05 Chloride 99 mmol/L (96-108) 10/14/22 15:05 Carbon Dioxide 23 mmol/L (22-29) 10/14/22 15:05 Anion Gap 14 (12-20) 10/14/22 15:05 BUN 20 mg/dL (9-16) H 10/14/22 15:05 Creatinine 0.94 mg/dL (0.5-1.4) 10/14/22 15:05 Estim Creat Clear Calc 34.9 10/14/22 15:05 Estimated GFR 57 10/14/22 15:05 Random Glucose 117 mg/dL (60-115) H 10/14/22 15:05 Lactic Acid 1.0 mmol/L (0.5-2.0) 10/14/22 16:52 Calcium 9.0 mg/dL (8.4-10.2) 10/14/22 15:05 Total Bilirubin 0.8 mg/dL (0.0-1.0) 10/14/22 15:05 AST 26 U/L (5-31) 10/14/22 15:05 ALT 13 U/L (0-31) 10/14/22 15:05 Alkaline Phosphatase 92 U/L (39-117) 10/14/22 15:05 Total Protein 8.0 g/dL (6.5-8.0) 10/14/22 15:05 Albumin 4.0 g/dL (3.5-5.0) 10/14/22 15:05 Impressions Abdomen X-Ray 10/14/22 15:20 IMPRESSION: 1. Large amount of free air in the abdomen. 2. Distended colon with stool and gas. Correlate with clinical exam. Results were immediately called to Jesus Alberto Beckham by phone at 3:50 PM. Assessment and Plan (1) Abdominal pain: Status: Acute She has known sigmoid cancer and has had worsening pain. Her new abdl xray does shows free air consistent with perforation likely from the cecum secondary to distal obstruction from her cancer. As before, the family have stated that they do not want any surgical intervention, and would likke to arrange for [employer] and hospice care. I have had multiple discussions with them. Babs, the daughter, is the HCP and is at bedside. She has a DNR, DNI order in effect. I have discussed the above with the ED staff. Time Spent With Patient Time: Total time managing care of this patient today ____ minutes. Procedures Date of Service Date of Service: 10/14/22
[2022-10-14 17:14] VITALS: BP 139/74; PULSE 105; RESP 18; TEMP 36.8; O2SAT 95
--- NOTE | 2022-10-14 17:15 | PC.NURSE ---
Pt resting quietly. Denies pain. Plan for admission and hospice consult with d/c tomorrow. Family at bedside
--- NOTE | 2022-10-14 17:25 | MHC.CM.ED ---
Addendum entered by Jyothi Sierra 10/14/22 20:10: Moderna x2 Addendum entered by Jyothi Sierra 10/14/22 19:59: Pt admitted. Pending hospice. IMM 10/14 reviewed with HCP/Babs. Awaiting transport to floor. Family in visiting with patient. CM will follow for discharge planning. Original Note: Pt with advance colon CA and obstruction. No BM x 1week. Abd pain. Care for by family at home. Son is STRAIGHTEDGE MACHINE OPERATOR HELPER. Has all equipment at home, including W/C and hospital bed/ Son/Jameel is her STRAIGHTEDGE MACHINE OPERATOR HELPER. Pt lives with family. Has 13 children. Family wants patient to be [facility]/ with hospice. HCP on file. HCP/daughter Babs ([phone]). [facility] and Hospice consulted via [facility]. Dr. Coronel will try to admit overnight for [facility] pending hospice consult for the morning. Pt will have morphine drip. Contact card given to both Babs and Jameel. CM will follow for D/C planning.
--- NOTE | 2022-10-14 18:06 | PM.IMHP ---
History of Present Illness Date of Service: 10/14/22 Chief Complaint: abd distension 82yo F with sigmoid cancer whose family decided against any surgical intervention. PMHx also significant for lung CA and COPD. Functional status poor with worsening cognitive decline. She comes in today for worsening abdominal pain and distension and nausea. Last BM over 1 wk ago. She was actually seen here in the ED 5 days ago. At that time, CT showed the mass but no obstruction, so she was sent home. AXR today shows a large amount of free air in the abdomen and distended colon with stool and gas, likely from cecal perforation due to obstruction from the cancer. Dr Bacon, her surgeon, consulted on her in the ED and in discussion with her family, including her HCP, her daughter Babs, she will be transitioned to hospice care. Review of Systems Review of Systems: Yes all other systems are reviewed and are negative [facility] Medical History Anxiety Back pain BPV (benign positional vertigo) Carpal tunnel syndrome Compression fracture of L1 lumbar vertebra COPD (chronic obstructive pulmonary disease) Diverticular disease GERD (gastroesophageal reflux disease) History of primary malignant neoplasm of left lung (~2014) History of pulmonary embolism (~2013) Hypercholesterolemia Hypertension Low vitamin D level Osteoporosis (~2007) Tachycardia Family History Son No problems noted. Daughter No problems noted. Mother No problems noted. Father No problems noted. Surgical History History of ankle surgery History of cataract surgery History of colonoscopy History of esophagogastroduodenoscopy (EGD) History of hemiarthroplasty of right hip (~2020) History of kyphoplasty (~2017) History of lobectomy of lung (~2014) History of lung biopsy (~2021) Social History Household Members: Children Household Members Other:: son Housing: Apartment Alcohol intake: never Patient Tobacco Use Status: Former Tobacco user Quit Date: 20 years ago Smoked in Last 30 Days: No e-Cigarette/Vaping Use: Never Used Second Hand Smoke Exposure: No Use of substances other than those prescribed or required for medical reasons: No Advance Directives: Yes Advance Directives on File: Yes Advance Directives Date on File: 04/12/22 service: No Current occupational status: retired Cognitive needs: Yes (wheelchair) Hearing needs: No Vision needs: Yes (Glasses) Meds Allergies Allergy/AdvReac Type Severity Reaction Status Date / Time No Known Allergies Allergy Verified 10/14/22 14:39 Active Medications: Current Medications Morphine Sulfate (Morphine Sulfate/Ns) 100 mg in 100 mls @ 0 mls/hr IVCONT .Q0M [place]; Protocol Lorazepam (Lorazepam 2 Mg/Ml Vial) 1 mg IVPUSH Q2H PRN PRN Reason: anxiety Ondansetron HCl (Ondansetron Hcl 4 Mg/2 Ml Vial) 4 mg IVPUSH Q8H PRN PRN Reason: Nausea and Vomiting Ondansetron HCl (Ondansetron Hcl 4 Mg/2 Ml Vial) 4 mg IVPUSH Q8H PRN PRN Reason: Nausea and Vomiting Home Medications Medication Instructions Recorded Confirmed Last Taken Type acetaminophen 650 mg 650 mg PO Q8H PRN Pain (Scale 05/23/20 10/09/22 Unknown History tablet,extended release (Tylenol Score 1-3) Arthritis Pain) fluticasone 500 mcg-salmeterol 50 1 inh inhalation BID 05/23/20 10/09/22 Unknown History mcg/dose blistr powdr for inhalation (Advair Diskus) metoprolol tartrate 25 mg tablet 25 mg PO BID 05/20/22 10/09/22 Unknown History diclofenac sodium 1 % topical gel 4 g topical QID PRN Pain 10/09/22 10/09/22 Unknown History (Arthritis Pain (diclofenac)) Physical Exam Vital Signs and Narrative: Vital Signs: Last Vital Signs Temp 98.3 F 10/14/22 17:14 Pulse 105 H 10/14/22 17:14 Resp 18 10/14/22 17:14 BP 139/74 10/14/22 17:14 Pulse Ox 95 10/14/22 17:14 O2 Del Method Room Air 10/14/22 17:14 BMI result Body Mass Index 24.4 Gen: in no acute distress HEENT: sclera anicteric, moist mucus membranes Neck: supple Lungs: clear to auscultation bilaterally Heart: regular rate and rhythm, no murmurs Abd: distended, tender Ext: no edema Skin: warm/well-perfused Neuro: alert, disoriented Psych: insight impaired Results Labs 10/14/22 15:05 Labs: Laboratory Results - last 24 hr 10/14/22 10/14/22 15:05 16:52 Anion Gap 14 Estim Creat Clear Calc 34.9 Estimated GFR 57 Random Glucose 117 H Lactic Acid 1.0 Calcium 9.0 Total Bilirubin 0.8 AST 26 ALT 13 Alkaline Phosphatase 92 Total Protein 8.0 Albumin 4.0 Imaging Radiologist's Impressions: Impressions Abdomen X-Ray 10/14/22 15:20 IMPRESSION: 1. Large amount of free air in the abdomen. 2. Distended colon with stool and gas. Correlate with clinical exam. Results were immediately called to Jesus Alberto Beckham by phone at 3:50 PM. Assessment and Plan (1) Carcinoma of sigmoid colon: Status: Acute (2) Perforated bowel: Status: Acute Plan 82yo F with lung CA, COPD, and sigmoid CA for which she and her HCP decided against surgical intervention, presenting with worsening abdominal pain and distension and found to have evidence of viscus perforation likely due to obstruction from the CA. After discussion amongst the ED physicians, her surgeon Dr Bacon, and myself, her HCP has decided to transition to hospice care. - admit to M/S - morphine IV gtt - prn lorazepam - CM consult for possibility of transition to home hospice Time Spent With Patient Time: Total time managing care of this patient today ____ minutes. Quality Stroke Does the patient have a stroke diagnosis?: No VTE Prior VTE?: No VTE Risk Level:: Medical - moderate - high VTE Device Contraindication: Treatment Not Indicated VTE Drug Contraindication: Treatment Not Indicated
[2022-10-14 18:56] LABS: MANUAL DIFF FLAG NO
[2022-10-14 18:59] LABS: Basophils Percent Auto 0.2 % (0-2); Hematocrit 26.9 % (37.0-47.0); Imm Gran Abs Auto 0.06 X10*3/uL (0.00-0.03); Imm Gran Pct Auto 0.3 % (0.0-0.4); Lymphocytes Absolute Auto 2.5 X10*3/uL (1.2-4.9); Lymphocytes Percent Auto 14.1 % (20-40); Mean Corpuscular HGB Conc 29.7 g/dl (31.0-35.0); Mean Corpuscular Hemoglobin 21.2 pg (27.0-33.0); Mean Corpuscular Volume 71.4 fL (80.0-98.0); Mean Platelet Volume 10.2 fL (9.4-12.3); Monocytes Absolute Auto 1.5 X10*3/uL (0.1-1.2); Monocytes Percent Auto 8.5 % (2-11); Neutrophils Absolute Auto 13.3 x10*3/uL (2.0-8.3); Neutrophils Percent Auto 76.9 % (45-73); Platelet Count 393 X10*3/uL (160-400); Red Blood Count 3.77 X10*6/uL (4.20-5.50); Red Cell Distribution Width 15.6 % (11.0-16.0); White Blood Count 17.3 X10*3/uL (4.8-10.8)
--- NOTE | 2022-10-14 19:04 | PHA.MEDREC ---
Pharmacy Consult ? Medication Reconciliation Pharmacy has completed the medication reconciliation.
[2022-10-14 20:00] VITALS: BP 141/65; PULSE 113; RESP 18; TEMP 36.6; O2SAT 96
[2022-10-14] MEDS: Scopolamine 1.5 MG PATCH.TD.3 TRANSDERMA (22:34)
[2022-10-14] MEDS: 0.9 % Sodium Chloride Flush 3 ML SYRINGE IVFLUSH (22:37)
[2022-10-14 23:28] VITALS: BP 136/66; PULSE 114; RESP 16; TEMP 36.7; O2SAT 95
[2022-10-14] MEDS: LORazepam 2 MG/ML VIAL 1 MG IVPUSH (23:46)
[2022-10-15 00:51] VITALS: RESP 18
[2022-10-15] MEDS: Morphine Sulfate Oral Sol 10 MG/5 ML SOLUTION 2.5 MG SUBLINGUAL ×2 (09:27→14:03)
[2022-10-15] MEDS: 0.9 % Sodium Chloride Flush 3 ML SYRINGE IVFLUSH (09:29)
--- NOTE | 2022-10-15 11:22 | PC.NURSE ---
Assumed care of Pt at 0645. Pt Alert and conversing with family. Education provided to pt and family on use of TELEPHONIC NURSE pump for pain control however, pt denying pain at this time. Family asking for PRN pain medication instead of TELEPHONIC NURSE pump, MD Churchill notified, new orders entered for sublingual PRN morphine. Pt resting in bed with family at bedside, all safety measures in place.
--- NOTE | 2022-10-15 13:01 | MHC.CM.PN ---
pt to be dcd home today by amb at 3 dr dupont asked to write scripts for hospice meds
--- NOTE | 2022-10-15 13:22 | P.DS_ITS ---
DS: Providers Provider Date of Service: 10/15/22 Date of admission: 10/14/22 18:04 Date of discharge: 10/15/22 Primary care physician: Rasheed Gilliam MD DS: Diagnosis Discharge Diagnosis (1) Carcinoma of sigmoid colon: Status: Acute (2) Perforated bowel: Status: Acute DS: Summary Hospital Course Hospital Course: from my admission H+P, 10/14/22: 82yo F with sigmoid cancer whose family decided against any surgical intervention.? PMHx also significant for lung CA and COPD.? Functional status poor with worsening cognitive decline.? She comes in today for worsening abdominal pain and distension and nausea.? Last BM over 1 wk ago.? She was actually seen here in the ED 5 days ago.? At that time, CT showed the mass but no obstruction, so she was sent home.? AXR today shows a large amount of free air in the abdomen and distended colon with stool and gas, likely from cecal perforation due to obstruction from the cancer.? Dr Bacon, her surgeon, consulted on her in the ED and in discussion with her family, including her HCP, her daughter Babs, she will be transitioned to hospice care. She was admitted to the medical-surgical floor on comfort care medications. Hospice and case management were consulted, and she was discharged home with hospice services in the care of her family 06/01. Time Spent with Patient Time attestation: Total time managing care of this patient today ___35_ minutes. Discharge coordination time: Greater than 30 minutes Quality: Safe Use of Opioids Does Pt have an Active Cancer Diagnosis on the Problem List?: No Quality: Stroke Does the patient have a stroke diagnosis?: No Physical Exam Vital Signs: Vital Signs: Last Vital Signs Temp 98.1 F 10/14/22 23:28 Pulse 114 H 10/14/22 23:28 Resp 18 10/15/22 00:51 BP 136/66 10/14/22 23:28 Pulse Ox 95 10/14/22 23:28 O2 Del Method Room Air 10/14/22 23:28 BMI result Body Mass Index 24.4 Gen: in no acute distress HEENT: sclera anicteric, moist mucus membranes Neck: supple Lungs: clear to auscultation bilaterally Heart: regular rate and rhythm, no murmurs Abd: distended Ext: no edema Skin: warm/well-perfused Neuro: alert, disoriented Psych: insight impaired DS: Data Data Completed and Pending Completed studies during hospitalization [Text1]: Laboratory Results WBC 17.3 X10*3/uL (4.8-10.8) H 10/14/22 18:47 RBC 3.77 X10*6/uL (4.20-5.50) L 10/14/22 18:47 Hgb 8.0 g/dl (12.0-16.0) L 10/14/22 18:47 Hct 26.9 % (37.0-47.0) L 10/14/22 18:47 MCV 71.4 fL (80.0-98.0) L 10/14/22 18:47 MCH 21.2 pg (27.0-33.0) L 10/14/22 18:47 MCHC 29.7 g/dl (31.0-35.0) L 10/14/22 18:47 RDW 15.6 % (11.0-16.0) 10/14/22 18:47 Plt Count 393 X10*3/uL (160-400) 10/14/22 18:47 MPV 10.2 fL (9.4-12.3) 10/14/22 18:47 Immature Gran % (Auto) 0.3 % (0.0-0.4) 10/14/22 18:47 Neut % (Auto) 76.9 % (45-73) H 10/14/22 18:47 Lymph % (Auto) 14.1 % (20-40) L 10/14/22 18:47 [place] % (Auto) 8.5 % (2-11) 10/14/22 18:47 Eos % (Auto) 0.0 % (0-4) 10/14/22 18:47 Baso % (Auto) 0.2 % (0-2) 10/14/22 18:47 Lymph # (Auto) 2.5 X10*3/uL (1.2-4.9) 10/14/22 18:47 [place] # (Auto) 1.5 X10*3/uL (0.1-1.2) H 10/14/22 18:47 Eos # (Auto) 0.0 X10*3/uL (0.0-0.4) 10/14/22 18:47 Baso # (Auto) 0.0 X10*3/uL (0.0-0.2) 10/14/22 18:47 Abs Immat Gran (auto) 0.06 X10*3/uL (0.00-0.03) H 10/14/22 18:47 Absolute Neuts (auto) 13.3 x10*3/uL (2.0-8.3) H 10/14/22 18:47 Absolute Nucleated RBC 0.000 X10*3/uL (0.0-0.012) 10/14/22 18:47 Nucleated RBC % (auto) 0.0 /100WBC (0.0-0.2) 10/14/22 18:47 Sodium 131 mmol/L (135-145) L 10/14/22 15:05 Potassium 4.6 mmol/L (3.3-5.1) 10/14/22 15:05 Chloride 99 mmol/L (96-108) 10/14/22 15:05 Carbon Dioxide 23 mmol/L (22-29) 10/14/22 15:05 Anion Gap 14 (12-20) 10/14/22 15:05 BUN 20 mg/dL (9-16) H 10/14/22 15:05 Creatinine 0.94 mg/dL (0.5-1.4) 10/14/22 15:05 Estim Creat Clear Calc 34.9 10/14/22 15:05 Estimated GFR 57 10/14/22 15:05 Random Glucose 117 mg/dL (60-115) H 10/14/22 15:05 Lactic Acid 1.0 mmol/L (0.5-2.0) 10/14/22 16:52 Calcium 9.0 mg/dL (8.4-10.2) 10/14/22 15:05 Total Bilirubin 0.8 mg/dL (0.0-1.0) 10/14/22 15:05 AST 26 U/L (5-31) 10/14/22 15:05 ALT 13 U/L (0-31) 10/14/22 15:05 Alkaline Phosphatase 92 U/L (39-117) 10/14/22 15:05 Total Protein 8.0 g/dL (6.5-8.0) 10/14/22 15:05 Albumin 4.0 g/dL (3.5-5.0) 10/14/22 15:05 Blood Type A Positive 10/14/22 18:47 Antibody Screen NEGATIVE 10/14/22 18:47 Impressions Abdomen X-Ray 10/14/22 15:20 IMPRESSION: 1. Large amount of free air in the abdomen. 2. Distended colon with stool and gas. Correlate with clinical exam. Results were immediately called to Jesus Alberto Beckham by phone at 3:50 PM. Discharge Plan Discharge Anticipated Discharge Date/Time: 10/15/22 13:16 Patient Disposition: Hospice - Home Discharge Diagnosis: abdominal perforation due to sigmoid cancer Referrals: [facility] [Other] - 1 Week Franklin Bacon MD [Physician] - 5 days Po,Rasheed Wong MD [Primary Care Provider] - 3 days Discharge Medications: New morphine concentrate 100 mg/5 mL (20 mg/mL) solution 5 mg PO Q3H PRN (Reason: pain/comfort) 15 Days Qty: 30 0RF Rx Instructions: Partial Fill upon patient request. scopolamine base 1 mg over 3 days patch 3 day 1 patch transdermal Q72H 12 Days Qty: 4 0RF Rx Instructions: 1 patch behind ear Q72H for secretions lorazepam [Lorazepam Intensol] 2 mg/mL concentrate 0.5 mg PO Q4H PRN (Reason: anxiety/restlessness) Qty: 30 0RF Continued (DME) Hospital bed with air mattress See Rx Instructions .Route .MEDSUPPLY Qty: 1 0RF Rx Instructions: As directed lactulose 20 gram/30 mL solution 20 g PO BID PRN (Reason: constipation) Qty: 2880 0RF cyanocobalamin (vitamin B-12) [Vitamin B-12] 1,000 mcg tablet 1,000 mcg PO DAILY Qty: 60 3RF sennosides-docusate sodium [Senna-S] 8.6-50 mg Tablet 1 tab-cap PO BEDTIME Qty: 30 0RF ondansetron 4 mg tablet,disintegrating 4 mg PO Q6H PRN (Reason: Nausea And Vomiting) (DME) hospiptal bed See Rx Instructions .Route .MEDSUPPLY Qty: 1 0RF Rx Instructions: As directed Discontinued meclizine 25 mg tablet 25 mg PO DAILY Qty: 90 2RF famotidine 20 mg tablet 20 mg PO BID Qty: 60 2RF Eliquis 5 mg tablet 5 mg PO BID Qty: 180 0RF diclofenac sodium [Arthritis Pain (diclofenac)] 1 % gel 4 g topical QID PRN (Reason: Pain) Rx Instructions: apply to single knee, ankle, foot; for foot includes sole/toes/top of foot tramadol 50 mg tablet 50 mg PO TID PRN (Reason: Pain, Moderate) Discharge Orders: Discharge Order (Routine); Ordered 10/15/22 Ordered By: Jordan Churchill Diet: Advance to usual diet Activity on Discharge: As tolerated Stand Alone Forms: Patient Portal Discharge page Care Plan Goals: comfort/palliation Health Concerns: abdominal perforation due to sigmoid cancer Plan of Treatment: hospice care Assessment: See Discharge Summary. Patient Instructions: Hospice Care (GEN)
== END 2022-10-15 15:15 | disposition hospice, home (50) | DRG 951 ==
LOC: HO.ED 17:33 → HO.EDOVER 18:10 → HO.S3 18:39
PROVIDERS: Emergency Medicine; Admitting Provider Family Medicine; Emergency Provider Emergency Medicine; PCP Internal Medicine; Visit Provider Family Medicine
DX: Z51.5 Encounter for palliative care (principal); K63.1 Perforation of intestine (nontraumatic); C18.7 Malignant neoplasm of sigmoid colon; C78.02 Secondary malignant neoplasm of left lung; J44.9 Chronic obstructive pulmonary disease, unspecified; Z74.01 Bed confinement status; Z86.711 Personal history of pulmonary embolism; Z90.2 Acquired absence of lung [part of]; Z87.891 Personal history of nicotine dependence; Z79.899 Other long term (current) drug therapy
CPT/HCPCS: 36415; 74019; 80053; 83605; 85025; 86850; 86900; 86901; 87040; 99285; J2060